=== PATIENT | female | born 1960 | race Caucasian/White ===

== ENCOUNTER 2016-06-12 14:17 | Inpatient (IN) | payer BC ==
[2016-06-12] MEDS ORDERED: ASPIRIN 81 MG CHEW PO STA (14:51)
[2016-06-12] MEDS ORDERED: MORPHINE SULFATE 4 MG/ML SYRINGE IV STA (14:51)
[2016-06-12] MEDS ORDERED: NITROGLYCERIN OINT 1 INCH/GM PACKET TOPICAL STA (14:51)
[2016-06-12] MEDS ORDERED: FAMOTIDINE 20 MG/2 ML VIAL IV STA (14:52)
[2016-06-12] MEDS ORDERED: SODIUM CHLORIDE 0.9% 1,000 ML IV STA (14:52)
--- NOTE | 2016-06-12 14:55 | ED ---
General Adult HPI - General Chief complaint: Chest Pain Stated complaint: Chest pain Time Seen by Provider: 06/12/16 14:24 Source: patient, RN notes reviewed Mode of arrival: wheelchair Limitations: no limitations - History of Present Illness Initial comments: Patient is a pleasant 56-year-old female presenting to the emergency Department with chest discomfort. Symptoms have been ongoing for the past couple of weeks. Patient is having difficulty tolerating oral intake. Discomfort is worse with attempted oral to take. Patient has vomited multiple times. Patient did have an episode of near-syncope. Patient also has some discomfort of her chest at other times. This discomfort is exertional. Patient has some mild dyspnea. No diaphoresis. Patient has some discomfort of her abdomen at times as well. Patient has had some loose stools as well. No abdominal discomfort at this time. Chest discomfort does radiate towards the back. - Related Data Home Medications Medication Instructions Recorded Confirmed Aspirin EC [Ecotrin] 81 mg PO DAILY 08/08/15 06/12/16 Carvedilol [Coreg] 12.5 mg PO HS 08/08/15 06/12/16 Cholecalciferol [Vitamin D3] 1,000 unit PO DAILY 08/08/15 06/12/16 Indapamide [Lozol] 1.25 mg PO DAILY 08/08/15 06/12/16 Valsartan [Diovan] 160 mg PO DAILY 08/08/15 06/12/16 Allergies Allergy/AdvReac Type Severity Reaction Status Date / Time Latex, Natural Rubber Allergy Rash/Hives Verified 06/12/16 14:35 codeine AdvReac Vomiting Verified 06/12/16 14:35 Review of Systems ROS Statement: Those systems with pertinent positive or pertinent negative responses have been documented in the HPI. ROS Other: All systems not noted in ROS Statement are negative. Constitutional: Denies: fever Eyes: Denies: eye pain ENT: Denies: ear pain Respiratory: Reports: dyspnea. Denies: cough Cardiovascular: Reports: chest pain Endocrine: Reports: fatigue Gastrointestinal: Reports: abdominal pain, nausea, vomiting, diarrhea Genitourinary: Denies: dysuria Musculoskeletal: Denies: back pain Skin: Denies: rash Neurological: Denies: headache Past Medical History Past Medical History: Cancer, Hypertension, Pneumonia Additional Past Medical History / Comment(s): Current UTI on medication, nonhodgkins lymphoma treated with chemo-she has "2 spots left lower lobe of my lung that have been unchanged for 3 yrs, pt states she does not have hyperlipidemia or high cholesterol, History of Any Multi-Drug Resistant Organisms: None Reported Additional Past Surgical History / Comment(s): Ablation for endometrosis, bilateral breast reduction, colonoscopies x 4 and a couple polypectomies-benign , D&Cs as a teen for heavy bleeding. Past Anesthesia/Blood Transfusion Reactions: Postoperative Nausea & Vomiting ( PONV) Additional Past Anesthesia/Blood Transfusion Reaction / Comment(s): Pt has received blood as a teen with heavy vaginal bleeding. She does not recall a reaction. Past Psychological History: Anxiety Additional Psychological History / Comment(s): Pt states her anxiety is well controlled with xanax. She lives alone. She is independent. Smoking Status: Current every day smoker Past Alcohol Use History: Daily Additional Past Alcohol Use History / Comment(s): Pt states she started smoking at age 15 (1975), she quit for 18 yrs and restarted 1 yr ago while going thru her divorce. She smokes 3/4 ppd. She states she drinks beer and more than 7 beers a week. Past Drug Use History: Marijuana Additional Drug Use History / Comment(s): Pt has medical marijuana card. She smokes 1 joint a day for pain and anxiety. - Past Family History Mother Family Medical History: AFIB, Fibromyalgia, Hyperlipidemia, Hypertension, Rheumatoid Arthritis (RA) Additional Family Medical History / Comment(s): Mother is 80 yrs old. Father Family Medical History: Myocardial Infarction (MD) Additional Family Medical History / Comment(s): Father of a MD at the age of 50yrs. General Exam Limitations: no limitations General appearance: alert, in no apparent distress Head exam: Present: atraumatic Eye exam: Present: normal appearance, PERRL ENT exam: Present: normal oropharynx Neck exam: Present: normal inspection Respiratory exam: Present: normal lung sounds bilaterally. Absent: chest wall tenderness Cardiovascular Exam: Present: regular rate, normal rhythm Expanded Peripheral pulses: 2+: Radial (R), Radial (L), Dorsalis Pedis (R), Dorsalis Pedis (L) GI/Abdominal exam: Present: soft, normal bowel sounds. Absent: distended, tenderness, guarding, rebound, rigid, pulsatile mass Extremities exam: Present: normal inspection. Absent: pedal edema, joint swelling, calf tenderness Neurological exam: Present: alert Psychiatric exam: Present: normal affect, normal mood Skin exam: Absent: rash Course Vital Signs 06/12/16 06/12/16 06/12/16 14:19 14:36 15:07 Temperature 97.3 F L Pulse Rate 117 H 88 Pulse Rate [ 97 [employer] ] Respiratory 22 22 22 Rate Blood Pressure 174/117 148/93 O2 Sat by Pulse 98 99 Oximetry EKG Findings - EKG Comments: EKG Findings:: Normal sinus rhythm and 99. NE 144. QRS 80. QT 346. QTc 444. Normal axis. Low qrs voltage. No acute ST change. Medical Decision Making - Medical Decision Making Patient reevaluated and resting in bed. Patient and family updated on results and plan. Dr. Boateng has been paged for admission. - Lab Data Result diagrams: 06/12/16 14:50 06/12/16 14:50 Lab Results 06/12/16 06/12/16 06/12/16 Range/Units 14:50 14:50 14:50 WBC 4.8 (3.8-10.6) k/uL RBC 3.86 (3.80-5.40) m/uL Hgb 14.4 (11.4-16.0) gm/dL Hct 40.0 (34.0-46.0) % MCV 103.5 H (80.0-100.0) fL MCH 37.3 H (25.0-35.0) pg MCHC 36.1 (31.0-37.0) g/dL RDW 13.2 (11.5-15.5) % Plt Count 123 L (150-450) k/uL Neutrophils % 71 % Lymphocytes % 16 % Monocytes % 5 % Eosinophils % 4 % Basophils % 1 % Neutrophils # 3.4 (1.3-7.7) k/uL Lymphocytes # 0.8 L (1.0-4.8) k/uL Monocytes # 0.3 (0-1.0) k/uL Eosinophils # 0.2 (0-0.7) k/uL Basophils # 0.1 (0-0.2) k/uL Macrocytosis Slight PT (9.0-12.0) sec INR (<1.1) APTT (22.0-30.0) sec D-Dimer (<0.60) mg/L FEU Sodium 125 L (137-145) mmol/L Potassium 3.6 (3.5-5.1) mmol/L Chloride 89 L (98-107) mmol/L Carbon Dioxide 22 (22-30) mmol/L Anion Gap 14 mmol/L BUN 4 L (7-17) mg/dL Creatinine 0.60 (0.52-1.04) mg/dL Est GFR (MDRD) Af Amer >60 (>60 ml/min/1.73 sqM) Est GFR (MDRD) Non-Af >60 (>60 ml/min/1.73 sqM) Glucose 148 H (74-99) mg/dL Calcium 8.9 (8.4-10.2) mg/dL Magnesium 1.3 L (1.6-2.3) mg/dL Total Bilirubin 3.3 H (0.2-1.3) mg/dL AST 211 H (14-36) U/L ALT 113 H (9-52) U/L Alkaline Phosphatase 127 H (38-126) U/L Total Creatine Kinase 64 (30-135) U/L CK-MB (CK-2) 0.6 (0.0-2.4) ng/mL CK-MB (CK-2) Rel Index 0.9 Troponin I <0.012 (0.000-0.034) ng/mL NT-Pro-B Natriuret Pep pg/mL Total Protein 6.5 (6.3-8.2) g/dL Albumin 4.0 (3.5-5.0) g/dL Amylase 39 (30-110) U/L Lipase 113 (23-300) U/L 06/12/16 06/12/16 Range/Units 14:50 14:50 WBC (3.8-10.6) k/uL RBC (3.80-5.40) m/uL Hgb (11.4-16.0) gm/dL Hct (34.0-46.0) % MCV (80.0-100.0) fL MCH (25.0-35.0) pg MCHC (31.0-37.0) g/dL RDW (11.5-15.5) % Plt Count (150-450) k/uL Neutrophils % % Lymphocytes % % Monocytes % % Eosinophils % % Basophils % % Neutrophils # (1.3-7.7) k/uL Lymphocytes # (1.0-4.8) k/uL Monocytes # (0-1.0) k/uL Eosinophils # (0-0.7) k/uL Basophils # (0-0.2) k/uL Macrocytosis PT 11.6 (9.0-12.0) sec INR 1.2 (<1.1) APTT 25.0 (22.0-30.0) sec D-Dimer 0.29 (<0.60) mg/L FEU Sodium (137-145) mmol/L Potassium (3.5-5.1) mmol/L Chloride (98-107) mmol/L Carbon Dioxide (22-30) mmol/L Anion Gap mmol/L BUN (7-17) mg/dL Creatinine (0.52-1.04) mg/dL Est GFR (MDRD) Af Amer (>60 ml/min/1.73 sqM) Est GFR (MDRD) Non-Af (>60 ml/min/1.73 sqM) Glucose (74-99) mg/dL Calcium (8.4-10.2) mg/dL Magnesium (1.6-2.3) mg/dL Total Bilirubin (0.2-1.3) mg/dL AST (14-36) U/L ALT (9-52) U/L Alkaline Phosphatase (38-126) U/L Total Creatine Kinase (30-135) U/L CK-MB (CK-2) (0.0-2.4) ng/mL CK-MB (CK-2) Rel Index Troponin I (0.000-0.034) ng/mL NT-Pro-B Natriuret Pep 49 pg/mL Total Protein (6.3-8.2) g/dL Albumin (3.5-5.0) g/dL Amylase (30-110) U/L Lipase (23-300) U/L - Radiology Data Radiology results: image reviewed (Two-view chest x-ray shows no acute process. 1 view abdominal x-ray shows some gassy loops of bowel.) Disposition Clinical Impression: Chest pain, Hyponatremia Disposition: ADMITTED IP TO THIS [facility] Time of Disposition: 16:16
[2016-06-12 15:01] LABS: Basophils # (A) 0.1 k/uL (0-0.2); Basophils % (A) 1 %; CH 37.9; CHCM 36.7; Eosinophils # (A) 0.2 k/uL (0-0.7); Eosinophils % (A) 4 %; HDW 2.29; HGB 14.4 gm/dL (11.4-16.0); Luc # (Auto) 0.12; Luc % (Auto) 3; Lymphocytes # (A) 0.8 k/uL (1.0-4.8); Lymphocytes % (A) 16 %; MCH 37.3 pg (25.0-35.0); MCHC 36.1 g/dL (31.0-37.0); MCV 103.5 fL (80.0-100.0); Macrocytosis Slight; Mean Platelet Volume 6.9; Monocytes # (A) 0.3 k/uL (0-1.0); Monocytes % (A) 5 %; Neutrophils # (A) 3.4 k/uL (1.3-7.7); Neutrophils % (A) 71 %; RBC 3.86 m/uL (3.80-5.40); RDW 13.2 % (11.5-15.5); WBC 4.8 k/uL (3.8-10.6); WBC (Perox) 4.41
[2016-06-12 15:14] LABS: ALT 113 U/L (9-52); AST 211 U/L (14-36); Alkaline Phosphatase 127 U/L (38-126); Amylase 39 U/L (30-110); Anion Gap 14 mmol/L; Blood Urea Nitrogen 4 mg/dL (7-17); Calcium 8.9 mg/dL (8.4-10.2); Carbon Dioxide 22 mmol/L (22-30); Chloride 89 mmol/L (98-107); Glucose 148 mg/dL (74-99); Magnesium 1.3 mg/dL (1.6-2.3); Non-African American GFR(MDRD) >60 (>60 ml/min/1.73 sqM); Potassium 3.6 mmol/L (3.5-5.1); Sodium 125 mmol/L (137-145); Total Bilirubin 3.3 mg/dL (0.2-1.3); Total Protein 6.5 g/dL (6.3-8.2)
[2016-06-12 15:21] LABS: Creatine Kinase 64 U/L (30-135)
--- NOTE | 2016-06-12 15:30 | XR ---
EXAMINATION TYPE: XR chest 2V DATE OF EXAM: 06/12/2016 3:24 PM COMPARISON: 08/08/2015 HISTORY: Chest pain TECHNIQUE: Frontal and lateral views of the chest are obtained. FINDINGS: There is no focal air space opacity. No evidence for pnuemothorax.No pleural effusion. The cardiac silhouette size is within normal limits. The osseous structures are grossly intact. IMPRESSION: 1. No acute cardiopulmonary process.
[2016-06-12 15:34] LABS: INR 1.2 (<1.1); Prothrombin Time 11.6 sec (9.0-12.0)
[2016-06-12 15:35] LABS: Creatine Kinase MB 0.6 ng/mL (0.0-2.4); Troponin I <0.012 ng/mL (0.000-0.034)
--- NOTE | 2016-06-12 15:35 | XR ---
EXAMINATION TYPE: XR abdomen 1V DATE OF EXAM: 06/12/2016 3:24 PM CLINICAL DATA: 56-year-old female with pain, nausea, vomiting and bloating, PHH COMPARISON: None FINDINGS: Lung bases are clear. No evidence for free intraperitoneal air. Gassy colon is noted without significant stool burden or air-fluid levels. No suspicious calcifications identified. IMPRESSION: Gassy bowel loops and colon. No significant stool burden. No evidence of bowel obstruction or free in traperitoneal air.
[2016-06-12] MEDS ORDERED: MORPHINE SULFATE 4 MG/ML SYRINGE IV PRN (16:17)
[2016-06-12] MEDS ORDERED: NALOXONE 0.4 MG/ML 1 ML VIAL IV PRN (16:17)
[2016-06-12] MEDS ORDERED: ONDANSETRON 4 MG/2 ML VIAL IVP PRN (16:18)
--- NOTE | 2016-06-12 17:09 | US ---
EXAMINATION TYPE: US gallbladder DATE OF EXAM: 06/12/2016 4:41 PM COMPARISON: NONE CLINICAL HISTORY: Pain. Intermittent chest pain and N/V x 2 weeks, obese patient EXAM MEASUREMENTS: Liver Length: 16.2 cm Gallbladder Wall: 0.2 cm CBD: 0.8 cm Right Kidney: 10.5 x 5.3 x 4.9 cm Technically difficult and limited study due to patient body habitus Pancreas: visualized portions wnl, limited by overlying midline bowel gas Liver: heterogeneous, increased echogenicity, increase attenuation Gallbladder: appears slightly hydropic at 10.0cm in length and 4.6cm in transverse measurement Evidence for sonographic Barth's sign: no CBD: dilated at 0.8cm Right Kidney: wnl IMPRESSION: 1. Negative for cholelithiasis or cholecystitis, although the gallbladder is distended. 2. Common duct caliber is mildly dilated for patient age, for significance request correlation for el evated bilirubin and alkaline phosphatase levels.
[2016-06-12] MEDS: SODIUM CHLORIDE 0.9% 1,000 ML IV SCH (18:13)
[2016-06-12] MEDS ORDERED: RX INFO: IV CONTRAST WAS GIVEN 1 EACH MISC MISCELLANE PRN (20:25)
[2016-06-12] MEDS ORDERED: HYDROmorphone 1 MG/ML 1 ML SYRINGE IVP PRN (20:26)
[2016-06-12] MEDS ORDERED: CARVEDILOL 12.5 MG TAB PO SCH (21:00)
[2016-06-12] MEDS: ALPRAZolam 0.25 MG TAB PO SCH (21:12)
[2016-06-12 21:16] LABS: Creatine Kinase 60 U/L (30-135)
[2016-06-12 21:28] LABS: Creatine Kinase MB 0.6 ng/mL (0.0-2.4); Troponin I <0.012 ng/mL (0.000-0.034)
[2016-06-12 21:39] LABS: Hepatitis B Core IgM Index 0.06
[2016-06-12 21:51] LABS: Hepatitis C Virus IgG Ab Negative (Negative); Hepatitis C Virus IgG Index 0.01
--- NOTE | 2016-06-12 22:19 | CT ---
EXAMINATION TYPE: CT ABDOMEN W CON DATE OF EXAM: 06/12/2016 9:08 PM COMPARISON: Ultrasound earlier this evening. HISTORY: Patient complains of nausea and vomiting. Patient has elevated LFTs. CT DLP: 989.6 mGycm Automated exposure control for dose reduction was used. TECHNIQUE: Helical acquisition of images was performed from the lung bases through the top of iliac crest to include entire abdomen. CONTRAST: Performed without Oral Contrast and with IV Contrast, patient injected with 100 mL of Omnip aque 300. FINDINGS: LUNG BASES: No significant abnormality is appreciated. LIVER/GB: There is diffuse homogeneous low-attenuation throughout the liver parenchyma consistent wit h diffuse fatty infiltration of the liver. There is no evidence of cholelithiasis. No visualized chol edocholithiasis. The gallbladder is mildly distended. There is no intrahepatic biliary tree dilation, but the common duct caliber measures 7 mm, mildly dilated. The distal common bile duct does not appe ar to be dilated as it courses through the pancreatic parenchyma. PANCREAS: No significant abnormality is seen. SPLEEN: No significant abnormality is seen. ADRENALS: No significant abnormality is seen. KIDNEYS: No significant abnormality is seen. BOWEL: No significant abnormality is seen. LYMPH NODES: No significant abnormality is seen. OSSEOUS STRUCTURES: No significant abnormality is seen. FREE AIR: No free air is visualized. OTHER: Prominent pattern of atherosclerotic calcifications throughout the aortoiliac and renal arteri al anatomy, without aneurysmal dilation. IMPRESSION: 1. NEGATIVE FOR CHOLECYSTITIS, VISUALIZED CHOLELITHIASIS, OR VISUALIZED CHOLEDOCHOLITHIASIS. HOWEVER, REDEMONSTRATED MILDLY DILATION OF THE GALLBLADDER AND COMMON BILE DUCT. 2. DIFFUSE FATTY INFILTRATION OF THE LIVER. 3. PROMINENT ATHEROSCLEROTIC CALCIFICATIONS THROUGHOUT THE ARTERIAL ANATOMY.
[2016-06-12 23:16] VITALS: RESP 16
[2016-06-12] MEDS ORDERED: LORazepam 2 MG/ML SYRINGE IV PRN ×3 (23:19)
[2016-06-13] MEDS ORDERED: Magnesium Replacement Protocol 1 EACH MISC MISCELLANE PRN (01:03)
[2016-06-13] MEDS: MAGNESIUM SULFATE-D5W PMX 1 GM in DEXTROSE/WATER 1 100ML.BAG IVPB SCH ×3 (01:42→03:48)
[2016-06-13] MEDS: SODIUM CHLORIDE 0.9% 1,000 ML IV SCH ×2 (01:42→11:36)
[2016-06-13 05:02] LABS: Creatine Kinase 47 U/L (30-135)
[2016-06-13 05:16] LABS: Creatine Kinase MB 0.7 ng/mL (0.0-2.4); Troponin I <0.012 ng/mL (0.000-0.034)
--- NOTE | 2016-06-13 07:12 | HP ---
DATE OF ADMISSION: CHIEF COMPLAINT: Chest pain. HISTORY OF PRESENT ILLNESS: This is the first known admission for this 56-year-old white female. She has been having a lot of trouble with epigastric discomfort and then, nausea and vomiting. She describes a chest pain that has been going on for about 2 weeks, but sounds more gastrointestinal than cardiac. She had no hematemesis, melena, hematochezia, fever, chills, etc. She also has elevated liver function studies, but she drinks a fair amount of alcohol. She has never had hepatitis. In the emergency room her sodium was slightly low as well. She does have a family history of heart disease. REVIEW OF SYSTEMS: She has had no neurologic problems, TIA, cerebrovascular accident, ( ), etc. ( ) She has had no history of coronary artery disease, murmurs, rheumatic fever, etc. She has had no orthopnea, PND, and she has had no palpitations. She has had no renal disease, melena, hematochezia, jaundice, diabetes, etc. Past medical history, family history, personal and social histories are otherwise essentially unremarkable. She is PROBABLY ALLERGIC TO MORPHINE as she got some in the ER and she has developed nausea and vomiting. Surgically, she has had a procedure for endometriosis. She has been treated in the past for a non-Hodgkin's lymphoma, B-cell. She also recently had a breast reduction. The only medication she takes is for hypertension. She has a family history of heart disease. She smokes a pack cigarettes a day. PHYSICAL EXAMINATION: VITAL SIGNS: Blood pressure is 139/90 with a pulse of 88, respirations 35 and she is afebrile. GENERAL: She appeared to be slightly overweight and nauseated. She was vomiting. Skin color is normal. Skin is warm and dry. Lymph nodes are not enlarged. Head, ears, eyes, nose, mouth, and throat were normal. Neck veins not distended. Thyroid is not enlarged. Chest is clear. Cardiac exam demonstrated tachycardia. The abdomen was protuberant and ( ) epigastrium. There is no visceromegaly or masses. Bowel sounds present. Extremities are normal. Neurologically, she is intact. IMPRESSION: 1. Chest pain. 2. Epigastric pain. 3. Questionable gastroesophageal reflux disease. 4. Elevated liver function studies - question cirrhosis. 5. Status post non-Hodgkin's lymphoma. 6. Alcohol abuse. 7. Hypertension. PLAN: 1. Bed rest. 2. Antiemetics. 3. Cardiac enzymes. 4. GI work-up for esophagitis or ulcer disease. 5. Assess liver function.
[2016-06-13] MEDS: ALPRAZolam 0.25 MG TAB PO SCH ×2 (08:52→14:51)
[2016-06-13 08:53] LABS: Anion Gap 9 mmol/L; Blood Urea Nitrogen 5 mg/dL (7-17); Calcium 8.6 mg/dL (8.4-10.2); Carbon Dioxide 23 mmol/L (22-30); Chloride 96 mmol/L (98-107); Glucose 164 mg/dL (74-99); Non-African American GFR(MDRD) >60 (>60 ml/min/1.73 sqM); Sodium 128 mmol/L (137-145)
[2016-06-13 08:59] LABS: Potassium 3.6 mmol/L (3.5-5.1)
[2016-06-13] MEDS ORDERED: PANTOPRAZOLE 40 MG/10 ML VIAL IV SCH (09:00)
[2016-06-13] MEDS ORDERED: VALSARTAN 160 MG TAB PO SCH (09:00)
[2016-06-13] MEDS ORDERED: ASPIRIN 81 MG CHEW PO SCH (09:00)
[2016-06-13] MEDS ORDERED: CHOLECALCIFEROL 1,000 UNIT TAB PO SCH (09:00)
--- NOTE | 2016-06-13 09:14 | CDI ---
In responding to this query, please exercise your independent professional judgment. The [facility] Coding Staff and Clinical Documentation Specialists appreciate your assistance in clarifying documentation, maintaining compliance with coding guidelines, accurately documenting patients condition and capturing severity of illness. The fact that a question is asked does not imply that any particular answer is desired or expected. Communication forms are a method of clarifying documentation and are not made part of the Legal Health Record. Thank you in advance for your clarification. Last Revision, December 2014 Leodan Mendoza [address] [facility] [place] [address] Documentation Clarification Form Date: 06/13/2016 9:05:00 AM From: Kristi Kim RN, CDS Admit Date: 06/12/2016 4:17:00 PM Patient Name: Mulu Viramontes Visit Number: [id number] Dr. Carlos Boateng, The patient presents with complaints of Chest discomfort and abdominal discomfort. History of Non-Hodgkins Lymphoma, Alcohol and documented sodium level of: 125. "her sodium is slightly low" per H&P Clinical indicators: NA 125 in ED Treatment: NS @ 100 In order to capture the severity of condition, please clarify if the condition signifies: Hyponatremia Abnormal Lab Value Unable to determine Other condition, please specify Please document in your progress notes and discharge summary in order to capture severity of illness and risk of mortality. Include clinical findings that support your diagnosis. FYI: Press F11 to launch patient chart. Place X here if this finding has no clinical significance, is not applicable or if you are not able to provide any additional documentation. RADHA
[2016-06-13] MEDS ORDERED: ACETAMINOPHEN TAB 325 MG TAB PO STA (10:25)
[2016-06-13 10:43] VITALS: BMI 33.1
--- NOTE | 2016-06-13 10:48 | P.CONS ---
History of Present Illness - Reason for Consult Consult date: 06/13/16 Elevated liver enzymes Requesting physician: Carlos Boateng - History of Present Illness 56-year-old female with no PCP with a past medical history of anxiety, depression, marijuana, non-Hodgkin's lymphoma, and EtOH abuse. Patient presents with mid sternal/midepigastric discomfort burning intermittently over the last few weeks exacerbated yesterday with nonbloody emesis and nausea. Patient has been drinking alcohol very heavily over the last few weeks with wine , beer, and vodka. She has been stressed, anxious going through divorce. Last drink of alcohol was prior to admission. She has drank intermittenty over the last 20 years sometimes on a daily basis sometimes not. She describes her drinking as " not a problem". She was taken off her Xanax recently in decided to drink more to compensate for her anxiety. Denies fever, chills, hematemesis , hematochezia, or melena. Colonoscopies in the past with polypectomy. No history of GI bleeding. No history of known liver disorders, intravenous drug abuse, or hepatitis. No history of jaundice. Hepatitis panel negative. Total bilirubin 3.3 currently 3.0. AST 139-211. ALT 97-113. Alkaline phosphatase 106-127. Troponin 3 less than 0.012. Lipase 113. White count 4.8. Hemoglobin 14.4. MCV 103. Platelet 123. BUN 4. Creatinine 0.6. Ultrasound gallbladder negative for cholelithiasis or cholecystitis. CBD 0.8 cm. Gallbladder slightly hydropic at 10 cm x 4.6 cm. Review of Systems Constitutional: Denies fever, chills, sweats, weight gain, or loss. HEENT: Negative for migraines, blurred vision or loss, earaches, drainage, tinnitus, oral mucosal lesions, dysphagia, or odynophagia. CARDIAC: Hypertension. Negative for chest pain, arrhythmias, or palpitation. RESPIRATORY: Negative for shortness of breath, hemoptysis, cough, or sputum production. GI: See HPI for pertinent findings. : Negative for hematuria, urgency, frequency, polyuria, or dysuria. GYNc: Endometriosis. Negative vaginal discharge. MUSCULOSKELETAL: Negative for muscle aches, swelling, arthritis, and arthralgias. NEUROLOGIC: Negative for stroke or TIA. ENDOCRINE: Negative for thyroid problems. Hematologic: Non-Hodgkin's lymphoma. SKIN: Negative for rash or itching. PSYCHIATRIC: depression and anxiety All systems: negative (See HPI) Past Medical History Past Medical History: Cancer, Hypertension, Pneumonia Additional Past Medical History / Comment(s): Current UTI on medication, nonhodgkins lymphoma treated with chemo-she has "2 spots left lower lobe of my lung that have been unchanged for 3 yrs, pt states she does not have hyperlipidemia or high cholesterol, History of Any Multi-Drug Resistant Organisms: None Reported Additional Past Surgical History / Comment(s): Ablation for endometrosis, bilateral breast reduction, colonoscopies x 4 and a couple polypectomies-benign , D&Cs as a teen for heavy bleeding. Past Anesthesia/Blood Transfusion Reactions: Postoperative Nausea & Vomiting ( PONV) Additional Past Anesthesia/Blood Transfusion Reaction / Comm: Pt has received blood as a teen with heavy vaginal bleeding. She does not recall a reaction. Past Psychological History: Anxiety, Depression Additional Psychological History / Comment(s): Pt states her anxiety is well controlled with xanax. She lives alone. She is independent. Patient states she has been stressed out related to possible divorce with . Smoking Status: Current every day smoker Past Alcohol Use History: Daily Additional Past Alcohol Use History / Comment(s): Pt states she started smoking at age 15 (1975), she quit for 18 yrs and restarted 1 yr ago while going thru her divorce. She smokes 3/4 ppd. She states she drinks beer and more than 7 beers a week. Past Drug Use History: Marijuana Additional Drug Use History / Comment(s): Pt has medical marijuana card. She smokes 1 joint a day for pain and anxiety. - Past Family History Mother Family Medical History: AFIB, Fibromyalgia, Hyperlipidemia, Hypertension, Rheumatoid Arthritis (RA) Additional Family Medical History / Comment(s): Mother is 80 yrs old. Father Family Medical History: Myocardial Infarction (ND) Additional Family Medical History / Comment(s): Father of a ND at the age of 50yrs. Medications and Allergies Home Medications Medication Instructions Recorded Confirmed Type Aspirin EC [Ecotrin Low Dose] 81 mg PO DAILY 08/08/15 06/12/16 History Carvedilol [Coreg] 12.5 mg PO HS 08/08/15 06/12/16 History Cholecalciferol [Vitamin D3] 1,000 unit PO DAILY 08/08/15 06/12/16 History Indapamide [Lozol] 1.25 mg PO DAILY 08/08/15 06/12/16 History Valsartan [Diovan] 160 mg PO DAILY 08/08/15 06/12/16 History ALPRAZolam [Xanax] 0.25 mg PO TID 06/12/16 06/12/16 History Allergies Allergy/AdvReac Type Severity Reaction Status Date / Time Latex, Natural Rubber Allergy Rash/Hives Verified 06/12/16 14:35 codeine AdvReac Vomiting Verified 06/12/16 14:35 Physical Exam Vitals: Vital Signs Temp Pulse Pulse Pulse Resp BP BP 06/13/16 08:15 06/13/16 08:00 98.2 F 90 96 16 124/70 06/13/16 03:59 97 F L 96 16 128/81 06/12/16 23:16 97 F L 99 16 131/88 06/12/16 20:00 97 F L 89 16 153/83 06/12/16 18:09 97.6 F 92 18 166/90 06/12/16 16:50 97.9 F 90 18 141/79 Pulse Ox 06/13/16 08:15 98 06/13/16 08:00 98 06/13/16 03:59 100 06/12/16 23:16 94 L 06/12/16 20:00 97 06/12/16 18:09 97 06/12/16 16:50 95 Intake and Output 06/12/16 06/13/16 06/13/16 22:59 06:59 14:59 Intake Total 300 1100 400 Balance 300 1100 400 Intake: IV 300 1100 Magnesium Sulfate-D5w Pmx 300 1 gm In Dextrose/Water 1 100ml.bag @ 100 mls/hr IVPB Q1H SUHAS Rx#: [id number] Sodium Chloride 0.9% 1, 300 800 000 ml @ 100 mls/hr IV . Q10H [facility]HAS Rx#:[id number] Oral 400 Other: Voiding Method Toilet Toilet Weight 79.6 kg 79.6 kg Patient Weight 06/14/16 06:59 Weight 79.6 kg General appearance: The patient is alert, oriented, in no acute distress. HET: Head is normocephalic and atraumatic. Pupils are equal and reactive. Oropharynx is clear without lesions. Very fine spider telangiectasia on face. Neck: Supple without lymphadenopathy. Trachea midline. Heart: S1 S2. Regular rate and rhythm. Lungs: No crackles or wheezes are heard. Abdomen: Soft, nontender, nondistended with bowel sounds. No appreciable ascites. No peritoneal signs. No palpable organomegaly or masses. Extremities: Bilateral palmar erythema. No asterixis. Normal skin color and turgor. No cyanosis, rash, ulceration, clubbing, or edema. Radial and pedal pulses are 2/4 bilaterally. Neurological: No focal deficits. Strength and sensation are grossly intact. Results CBC & Chem 7: 06/12/16 14:50 06/13/16 03:38 Labs: Abnormal Lab Results - Last 24 Hours (Table) 06/13/16 06/13/16 Range/Units 03:38 03:38 Sodium 128 L (137-145) mmol/L Chloride 96 L (98-107) mmol/L BUN 5 L (7-17) mg/dL Glucose 164 H (74-99) mg/dL Magnesium 2.4 H (1.6-2.3) mg/dL US - abdomen: report reviewed (Reviewed by Dr. Encarnacion) Assessment and Plan (1) Alcoholic hepatitis Narrative/Plan: Suspected underlying alcohol liver disease. Suspect chest discomfort secondary to alcohol gastritis, esophagitis. Status: Acute (2) Macrocytosis Status: Acute (3) Thrombocytopenia concurrent with and due to alcoholism Status: Acute Plan: 1. Lengthy conversation for alcohol abstinence was advised. 2. Presently patient is more comfortable without abdominal pain nausea vomiting. Will advance to regular diet. Discharge per medicine. Return to GI office in 1-2 weeks for reevaluation with repeat CMP within a week. Thank you for this kind referral and the opportunity to participate in the care of your patient. This consultation was discussed with Dr. Encarnacion. The impression and plan of care have been directed as dictated.
[2016-06-13 10:55] LABS: ALT 97 U/L (9-52); AST 139 U/L (14-36); Alkaline Phosphatase 106 U/L (38-126); Total Protein 6.1 g/dL (6.3-8.2)
[2016-06-13 12:10] VITALS: BP 101/59
--- NOTE | 2016-06-13 12:18 | P.DS ---
Providers Date of admission: 06/12/16 16:17 Expected date of discharge: 06/13/16 Attending physician: Carlos Boateng Consults: 06/12/16 20:26 Consult Physician Routine Consulting Provider: Leola Encarnacion Consult Reason/Comments: n/v, elevated liver enzymes Do you want consulting provider notified?: Yes Primary care physician: Stated None Hospital Course: 56-year-old female presented to the emergency room with a chief complaint of developing chest discomfort. Patient stated had been ongoing for several weeks. Patient does admit to drinking alcohol on a daily basis. States she's been under a lot of stress and has been " stressed drinking "" with daily consumption of hard liquor. Patient states she is normally an anxious individual in the past has used Xanax to control her anxiety ran out of the Xanax could not get a refill stated that she noted that she started drinking more heavily. Subsequently the patient was seen by gastroenterology service. Cardiac enzymes were negative. On admission there was an abnormal lab value the sodium was low at 125 with platelet count of 123 kalie also was 1.3 in which this was corrected total bilirubin elevated at 3.3 AST and ALT on admission were elevated suspect alcohol related on the day of discharge the AST was down to 139 ALT found 97 plan was the patient would follow-up in the outpatient setting with gastroenterology service. At the time of discharge patient was felt to be medically stable and appropriate proceed with a discharge to home. Patient did verbalize that she has stopped drinking alcohol the past and understands the severity and the need to address her alcohol issues she feels she has no issues stopping drinking alcohol. The plan was for the patient to follow-up with GI service in the outpatient setting Impression discharge diagnosis Present on admission atypical chest discomfort abdominal discomfort suspect due to chronic alcoholism Present on admission abnormal lab value hyponatremia suspect alcohol-induced History of non-Hodgkin lymphoma Anxiety disorder nonspecified Elevated liver function studies suspect alcohol related Present on admission abnormal lab value hypo-magnesium thrombocytopenia suspect alcohol-related The above dictated assessment and findings were discussed with Dr. Boateng Impression and the plan of care have been dictated as directed. Yolande Finley nurse practitioner acting as a scribe for Dr. Boateng Plan - Discharge Summary Discharge Medication List Aspirin EC [Ecotrin Low Dose] 81 mg PO DAILY 08/08/15 [History] Carvedilol [Coreg] 12.5 mg PO HS 08/08/15 [History] Cholecalciferol [Vitamin D3] 1,000 unit PO DAILY 08/08/15 [History] Indapamide [Lozol] 1.25 mg PO DAILY 08/08/15 [History] Valsartan [Diovan] 160 mg PO DAILY 08/08/15 [History] ALPRAZolam [Xanax] 0.25 mg PO TID 06/12/16 [History] Follow up Appointment(s)/Referral(s): Ulisses Pastor MD [Primary Care Provider] - 06/17/16 2:00 pm (PLEASE ARRIVE AT 1: 30 TO MEET WITH NURSE PRACTIONER AND TO FILL OUT PAPERWORK.) Leoal Encarnacion MD [STAFF PHYSICIAN] - 06/21/16 2:45 pm Ambulatory/Diagnostic Orders: Comprehensive Metabolic Panel [LAB.AMB] Time Frame: 1 Week, Location: Determined By Patient Discharge Disposition: HOME SELF-CARE
[2016-06-13 15:15] VITALS: PULSE 88; TEMP 98.6
--- NOTE | 2016-06-14 06:58 | PN ---
CHIEF COMPLAINT: Chest pain, history of lymphoma, alcohol abuse and probable gastritis and esophagitis. HISTORY OF PRESENT ILLNESS: This lady is feeling much better. She is not having any further chest or abdominal pain. Her diet and activity were advanced. Troponins were normal. She will probably go home today. PHYSICAL EXAM: Chest is clear. Cardiac exam is normal. Abdomen is soft and nontender. IMPRESSION: 1. Chest pain, atypical for angina. 2. Alcohol abuse. 3. Gastritis. 4. History of lymphoma. PLAN: Probably home today and this will be arranged by the nurse practitioner.
== END 2016-06-13 15:54 | disposition home or self-care (01) | DRG 392 ==
LOC: EC 14:17 → 6SEL 16:17
PROVIDERS: ADMIT Family Medicine; ATTEND Family Medicine
DX: K29.20 Alcoholic gastritis without bleeding (principal); E87.1 Hypo-osmolality and hyponatremia; D69.6 Thrombocytopenia, unspecified; E83.42 Hypomagnesemia; K70.10 Alcoholic hepatitis without ascites; K20.9 Esophagitis, unspecified; F10.20 Alcohol dependence, uncomplicated; I10 Essential (primary) hypertension; F32.9 Major depressive disorder, single episode, unspecified; F17.210 Nicotine dependence, cigarettes, uncomplicated; F41.9 Anxiety disorder, unspecified; D75.89 Other specified diseases of blood and blood-forming organs; Z85.72 Personal history of non-Hodgkin lymphomas; Z79.82 Long term (current) use of aspirin; Z79.899 Other long term (current) drug therapy; Z82.49 Family history of ischemic heart disease and other diseases of the circulatory system
CPT/HCPCS: 36415; 71020; 74000; 74160; 76705; 80053; 80074; 82150; 82550; 82553; 82977; 83690; 83735; 83880; 84484; 85025; 85379; 85610; 85730; 93005; 96361; 96374; 96375; 96376; 99285

== ENCOUNTER 2017-04-29 01:37 | Inpatient (IN) | payer BC ==
[2017-04-29] MEDS ORDERED: ONDANSETRON 4 MG/2 ML VIAL IVP STA (01:56)
--- NOTE | 2017-04-29 02:01 | ED ---
General Adult HPI - General Chief complaint: Chest Pain Stated complaint: chest pain Time Seen by Provider: 04/29/17 01:47 Source: patient, RN notes reviewed, old records reviewed Mode of arrival: wheelchair Limitations: no limitations - History of Present Illness Initial comments: 57-year-old female presents for evaluation of chest pain. Patient states she has had chest pain for the past 3 hours. She also reports that this is associated with dyspnea. Patient admits that earlier in the day she has had nausea and vomiting. Several episodes of vomiting nonbloody nonbilious. Pain began while at rest. No associated diaphoresis. Patient has no known history of coronary artery disease, she is a current smoker, and has a strong family history of coronary artery disease including father who in his 50s from a myocardial infarction. Patient states she was previously admitted to [facility] with abdominal cellulitis, at that time she did have some bilateral lower extremity swelling which is resolving. She denies any current swelling or calf tenderness. No current abdominal pain. Patient does state that her chest pain is described as tightness or pressure, she also has some bilateral upper back pain which she also describes it as a pressure. Patient denies fever or chills, no significant cough. - Related Data Home Medications Medication Instructions Recorded Confirmed Aspirin EC [Ecotrin Low Dose] 81 mg PO DAILY 08/08/15 04/29/17 Carvedilol [Coreg] 12.5 mg PO BID 08/08/15 04/29/17 Cholecalciferol [Vitamin D3] 1,000 unit PO DAILY 08/08/15 04/29/17 Indapamide [Lozol] 1.25 mg PO DAILY 08/08/15 04/29/17 Valsartan [Diovan] 160 mg PO DAILY 08/08/15 04/29/17 ALPRAZolam [Xanax] 0.25 mg PO TID 06/12/16 04/29/17 Carvedilol [Coreg] 12.5 mg PO DAILY 04/29/17 04/29/17 Clotrimazole/Betameth Cream 1 applic TOPICAL BID 04/29/17 04/29/17 [Lotrisone] Doxycycline Hyclate 100 mg PO BID 04/29/17 04/29/17 Furosemide [Lasix] 20 mg PO BID 03/20/18 03/20/18 Multivitamins, Thera [Multivitamin 1 tab PO DAILY 04/29/17 04/29/17 (formulary)] Pantoprazole Sodium 40 mg PO DAILY 04/29/17 04/29/17 Spironolactone 50 mg PO DAILY 04/29/17 04/29/17 Thiamine [Vitamin B-1] 100 mg PO DAILY 04/29/17 04/29/17 Allergies Allergy/AdvReac Type Severity Reaction Status Date / Time Latex, Natural Rubber Allergy Rash/Hives Verified 06/12/16 14:35 codeine AdvReac Vomiting Verified 06/12/16 14:35 Review of Systems ROS Statement: Those systems with pertinent positive or pertinent negative responses have been documented in the HPI. ROS Other: All systems not noted in ROS Statement are negative. Past Medical History Past Medical History: Cancer, Hypertension, Pneumonia Additional Past Medical History / Comment(s): UTI , nonhodgkins lymphoma treated with chemo-she has "2 spots left lower lobe of my lung that have been unchanged for 3 yrs, pt states she does not have hyperlipidemia or high cholesterol, History of Any Multi-Drug Resistant Organisms: None Reported Additional Past Surgical History / Comment(s): Ablation for endometrosis, bilateral breast reduction, colonoscopies x 4 and a couple polypectomies-benign , D&Cs as a teen for heavy bleeding. Past Anesthesia/Blood Transfusion Reactions: Postoperative Nausea & Vomiting ( PONV) Additional Past Anesthesia/Blood Transfusion Reaction / Comment(s): Pt has received blood as a teen with heavy vaginal bleeding. She does not recall a reaction. Past Psychological History: Anxiety, Depression Smoking Status: Current every day smoker Past Alcohol Use History: Daily Past Drug Use History: Marijuana - Past Family History Mother Family Medical History: AFIB, Fibromyalgia, Hyperlipidemia, Hypertension, Rheumatoid Arthritis ([place]) Additional Family Medical History / Comment(s): Mother is 80 yrs old. Father Family Medical History: Myocardial Infarction ([place]) Additional Family Medical History / Comment(s): Father of a [place] at the age of 50yrs. General Exam Limitations: no limitations General appearance: alert, in no apparent distress Head exam: Present: atraumatic, normocephalic Eye exam: Present: normal appearance, PERRL, EOMI ENT exam: Present: normal exam Neck exam: Present: normal inspection. Absent: tenderness, meningismus Respiratory exam: Present: decreased breath sounds. Absent: respiratory distress Cardiovascular Exam: Present: normal rhythm, tachycardia GI/Abdominal exam: Present: soft, distended. Absent: tenderness, guarding, rebound Extremities exam: Present: normal inspection, normal capillary refill, other ( Bilateral radial pulses symmetric). Absent: pedal edema, calf tenderness Back exam: Present: normal inspection, full ROM. Absent: tenderness Neurological exam: Present: alert, oriented X3, CN II-XII intact. Absent: motor sensory deficit Psychiatric exam: Present: normal affect, normal mood Skin exam: Present: warm, dry, intact, normal color. Absent: cyanosis, diaphoretic, erythema Course Vital Signs 04/29/17 04/29/17 04/29/17 01:40 02:24 03:01 Temperature 99.5 F Pulse Rate 109 H 109 H 100 Respiratory 22 20 18 Rate Blood Pressure 179/96 172/85 156/76 O2 Sat by Pulse 90 L 94 L 95 Oximetry 04/29/17 03:56 Temperature 100.6 F H Pulse Rate 107 H Respiratory 18 Rate Blood Pressure 160/78 O2 Sat by Pulse 98 Oximetry EKG Findings - EKG Comments: EKG Findings:: EKG obtained at 0148 shows sinus tachycardia with occasional PVCs , low voltage, ventricular rate 108, MO interval 146, QRS duration 72, QTC 466, no definitive signs of ischemia. EKG obtained at 0 217 shows sinus tachycardia , rate of 111, MO interval 144, QRS duration 66 QTC 475, no ST segment elevation , Medical Decision Making - Medical Decision Making 57-year-old female presenting with dyspnea and chest pain. No history of cough , patient is febrile in the emergency partner, she is currently on antibiotics for abdominal cellulitis, currently taking doxycycline. Chest pain is both in anterior chest as well as back. EKG is sinus tachycardia with no definitive signs of ischemia. Laboratory studies reveal elevated white blood cell count, stable hemoglobin, negative troponin, significantly elevated d-dimer. Given the elevated d-dimer and chest pain with back pain, CT angiography is obtained which is negative for both dissection and pulmonary embolism, there is infiltrate on the chest x-ray and CT longus in the left lower lobe. CT abdomen is obtained which is negative for aortic dissection, does show mild ascites. Patient was recently hospitalized, she is started on antibiotics for healthcare associated pneumonia, blood cultures pending. Diagnosis: Healthcare associated pneumonia, chest pain - Lab Data Result diagrams: 04/29/17 01:47 04/29/17 01:47 Lab Results 04/29/17 04/29/17 04/29/17 Range/Units 01:47 01:47 01:47 WBC 14.5 H (3.8-10.6) k/uL RBC 3.83 (3.80-5.40) m/uL Hgb 14.2 (11.4-16.0) gm/dL Hct 40.8 (34.0-46.0) % MCV 106.5 H (80.0-100.0) fL MCH 37.0 H (25.0-35.0) pg MCHC 34.8 (31.0-37.0) g/dL RDW 13.1 (11.5-15.5) % Plt Count 265 (150-450) k/uL Neutrophils % 83 % Lymphocytes % 7 % Monocytes % 4 % Eosinophils % 4 % Basophils % 1 % Neutrophils # 12.0 H (1.3-7.7) k/uL Lymphocytes # 1.0 (1.0-4.8) k/uL Monocytes # 0.5 (0-1.0) k/uL Eosinophils # 0.6 (0-0.7) k/uL Basophils # 0.1 (0-0.2) k/uL Macrocytosis Moderate PT (9.0-12.0) sec INR (<1.2) APTT (22.0-30.0) sec D-Dimer (<0.60) mg/L FEU Sodium 139 (137-145) mmol/L Potassium 3.8 (3.5-5.1) mmol/L Chloride 100 (98-107) mmol/L Carbon Dioxide 25 (22-30) mmol/L Anion Gap 14 mmol/L BUN 3 L (7-17) mg/dL Creatinine 0.50 L (0.52-1.04) mg/dL Est GFR (CKD-EPI)AfAm >90 (>60 ml/min/1.73 sqM) Est GFR (CKD-EPI)NonAf >90 (>60 ml/min/1.73 sqM) Glucose 151 H (74-99) mg/dL Plasma Lactic Acid Giovanni (0.7-2.0) mmol/L Calcium 9.7 (8.4-10.2) mg/dL Magnesium 1.6 (1.6-2.3) mg/dL Total Bilirubin 1.2 (0.2-1.3) mg/dL AST 51 H (14-36) U/L ALT 29 (9-52) U/L Alkaline Phosphatase 108 (38-126) U/L Total Creatine Kinase 46 (30-135) U/L CK-MB (CK-2) 0.5 (0.0-2.4) ng/mL CK-MB (CK-2) Rel Index 1.1 Troponin I <0.012 (0.000-0.034) ng/mL NT-Pro-B Natriuret Pep pg/mL Total Protein 7.1 (6.3-8.2) g/dL Albumin 4.1 (3.5-5.0) g/dL Lipase 147 (23-300) U/L Urine Color Urine Appearance (Clear) Urine pH (5.0-8.0) Ur Specific [place] (1.001-1.035) Urine Protein (Negative) Urine Glucose (UA) (Negative) Urine Ketones (Negative) Urine Blood (Negative) Urine Nitrite (Negative) Urine Bilirubin (Negative) Urine Urobilinogen (<2.0) mg/dL Ur Leukocyte Esterase (Negative) Urine Opiates Screen (NotDetected) Ur Oxycodone Screen (NotDetected) Urine Methadone Screen (NotDetected) Ur Propoxyphene Screen (NotDetected) Ur Barbiturates Screen (NotDetected) U Tricyclic Antidepress (NotDetected) Ur Phencyclidine Scrn (NotDetected) Ur Amphetamines Screen (NotDetected) U Methamphetamines Scrn (NotDetected) U Benzodiazepines Scrn (NotDetected) Urine Cocaine Screen (NotDetected) U Marijuana (THC) Screen (NotDetected) Serum Alcohol <10 mg/dL 04/29/17 04/29/17 04/29/17 Range/Units 01:47 01:47 01:57 WBC (3.8-10.6) k/uL RBC (3.80-5.40) m/uL Hgb (11.4-16.0) gm/dL Hct (34.0-46.0) % MCV (80.0-100.0) fL MCH (25.0-35.0) pg MCHC (31.0-37.0) g/dL RDW (11.5-15.5) % Plt Count (150-450) k/uL Neutrophils % % Lymphocytes % % Monocytes % % Eosinophils % % Basophils % % Neutrophils # (1.3-7.7) k/uL Lymphocytes # (1.0-4.8) k/uL Monocytes # (0-1.0) k/uL Eosinophils # (0-0.7) k/uL Basophils # (0-0.2) k/uL Macrocytosis PT 10.8 (9.0-12.0) sec INR 1.1 (<1.2) APTT 24.0 (22.0-30.0) sec D-Dimer 5.20 H (<0.60) mg/L FEU Sodium (137-145) mmol/L Potassium (3.5-5.1) mmol/L Chloride (98-107) mmol/L Carbon Dioxide (22-30) mmol/L Anion Gap mmol/L BUN (7-17) mg/dL Creatinine (0.52-1.04) mg/dL Est GFR (CKD-EPI)AfAm (>60 ml/min/1.73 sqM) Est GFR (CKD-EPI)NonAf (>60 ml/min/1.73 sqM) Glucose (74-99) mg/dL Plasma Lactic Acid Giovanni 1.6 (0.7-2.0) mmol/L Calcium (8.4-10.2) mg/dL Magnesium (1.6-2.3) mg/dL Total Bilirubin (0.2-1.3) mg/dL AST (14-36) U/L ALT (9-52) U/L Alkaline Phosphatase (38-126) U/L Total Creatine Kinase (30-135) U/L CK-MB (CK-2) (0.0-2.4) ng/mL CK-MB (CK-2) Rel Index Troponin I (0.000-0.034) ng/mL NT-Pro-B Natriuret Pep 1320 pg/mL Total Protein (6.3-8.2) g/dL Albumin (3.5-5.0) g/dL Lipase (23-300) U/L Urine Color Urine Appearance (Clear) Urine pH (5.0-8.0) Ur Specific [place] (1.001-1.035) Urine Protein (Negative) Urine Glucose (UA) (Negative) Urine Ketones (Negative) Urine Blood (Negative) Urine Nitrite (Negative) Urine Bilirubin (Negative) Urine Urobilinogen (<2.0) mg/dL Ur Leukocyte Esterase (Negative) Urine Opiates Screen (NotDetected) Ur Oxycodone Screen (NotDetected) Urine Methadone Screen (NotDetected) Ur Propoxyphene Screen (NotDetected) Ur Barbiturates Screen (NotDetected) U Tricyclic Antidepress (NotDetected) Ur Phencyclidine Scrn (NotDetected) Ur Amphetamines Screen (NotDetected) U Methamphetamines Scrn (NotDetected) U Benzodiazepines Scrn (NotDetected) Urine Cocaine Screen (NotDetected) U Marijuana (THC) Screen (NotDetected) Serum Alcohol mg/dL 04/29/17 Range/Units 02:19 WBC (3.8-10.6) k/uL RBC (3.80-5.40) m/uL Hgb (11.4-16.0) gm/dL Hct (34.0-46.0) % MCV (80.0-100.0) fL MCH (25.0-35.0) pg MCHC (31.0-37.0) g/dL RDW (11.5-15.5) % Plt Count (150-450) k/uL Neutrophils % % Lymphocytes % % Monocytes % % Eosinophils % % Basophils % % Neutrophils # (1.3-7.7) k/uL Lymphocytes # (1.0-4.8) k/uL Monocytes # (0-1.0) k/uL Eosinophils # (0-0.7) k/uL Basophils # (0-0.2) k/uL Macrocytosis PT (9.0-12.0) sec INR (<1.2) APTT (22.0-30.0) sec D-Dimer (<0.60) mg/L FEU Sodium (137-145) mmol/L Potassium (3.5-5.1) mmol/L Chloride (98-107) mmol/L Carbon Dioxide (22-30) mmol/L Anion Gap mmol/L BUN (7-17) mg/dL Creatinine (0.52-1.04) mg/dL Est GFR (CKD-EPI)AfAm (>60 ml/min/1.73 sqM) Est GFR (CKD-EPI)NonAf (>60 ml/min/1.73 sqM) Glucose (74-99) mg/dL Plasma Lactic Acid Giovanni (0.7-2.0) mmol/L Calcium (8.4-10.2) mg/dL Magnesium (1.6-2.3) mg/dL Total Bilirubin (0.2-1.3) mg/dL AST (14-36) U/L ALT (9-52) U/L Alkaline Phosphatase (38-126) U/L Total Creatine Kinase (30-135) U/L CK-MB (CK-2) (0.0-2.4) ng/mL CK-MB (CK-2) Rel Index Troponin I (0.000-0.034) ng/mL NT-Pro-B Natriuret Pep pg/mL Total Protein (6.3-8.2) g/dL Albumin (3.5-5.0) g/dL Lipase (23-300) U/L Urine Color Yellow Urine Appearance Clear (Clear) Urine pH 6.5 (5.0-8.0) Ur Specific [place] 1.011 (1.001-1.035) Urine Protein Negative (Negative) Urine Glucose (UA) Negative (Negative) Urine Ketones 2+ H (Negative) Urine Blood Negative (Negative) Urine Nitrite Negative (Negative) Urine Bilirubin Negative (Negative) Urine Urobilinogen <2.0 (<2.0) mg/dL Ur Leukocyte Esterase Negative (Negative) Urine Opiates Screen Not Detected (NotDetected) Ur Oxycodone Screen Detected H (NotDetected) Urine Methadone Screen Not Detected (NotDetected) Ur Propoxyphene Screen Not Detected (NotDetected) Ur Barbiturates Screen Not Detected (NotDetected) U Tricyclic Antidepress Not Detected (NotDetected) Ur Phencyclidine Scrn Not Detected (NotDetected) Ur Amphetamines Screen Not Detected (NotDetected) U Methamphetamines Scrn Not Detected (NotDetected) U Benzodiazepines Scrn Detected H (NotDetected) Urine Cocaine Screen Not Detected (NotDetected) U Marijuana (THC) Screen Detected H (NotDetected) Serum Alcohol mg/dL Critical Care Time Critical Care Time: Yes Total Critical Care Time: 35 Disposition Clinical Impression: Chest pain, Healthcare-associated pneumonia Disposition: ADMITTED IP TO THIS [facility] Condition: Stable Referrals: None,Stated [Primary Care Provider] - 1-2 days Decision to Admit Reason: Admit from EC Decision Date: 04/29/17 Decision Time: 04:08
[2017-04-29 02:11] LABS: Basophils # (A) 0.1 k/uL (0-0.2); Basophils % (A) 1 %; Eosinophils # (A) 0.6 k/uL (0-0.7); Eosinophils % (A) 4 %; HCT 40.8 % (34.0-46.0); HGB 14.2 gm/dL (11.4-16.0); Lymphocytes % (A) 7 %; MCHC 34.8 g/dL (31.0-37.0); MCV 106.5 fL (80.0-100.0); Macrocytosis Moderate; Mean Platelet Volume 7.5; Monocytes # (A) 0.5 k/uL (0-1.0); Monocytes % (A) 4 %; Neutrophils % (A) 83 %; Platelet Count 265 k/uL (150-450); RBC 3.83 m/uL (3.80-5.40); RDW 13.1 % (11.5-15.5); WBC 14.5 k/uL (3.8-10.6)
[2017-04-29] MEDS: NITROGLYCERIN SL TABS 0.4 MG TAB SUBLINGUAL STA ×2 (02:14→02:25)
[2017-04-29 02:15] LABS: ALT 29 U/L (9-52); AST 51 U/L (14-36); Albumin 4.1 g/dL (3.5-5.0); Alcohol <10 mg/dL; Alkaline Phosphatase 108 U/L (38-126); Anion Gap 14 mmol/L; Blood Urea Nitrogen 3 mg/dL (7-17); Calcium 9.7 mg/dL (8.4-10.2); Carbon Dioxide 25 mmol/L (22-30); Chloride 100 mmol/L (98-107); Glucose 151 mg/dL (74-99); Lipase 147 U/L (23-300); Magnesium 1.6 mg/dL (1.6-2.3); Potassium 3.8 mmol/L (3.5-5.1); Sodium 139 mmol/L (137-145); Total Bilirubin 1.2 mg/dL (0.2-1.3); Total Protein 7.1 g/dL (6.3-8.2)
--- NOTE | 2017-04-29 02:21 | XR ---
EXAMINATION TYPE: XR chest 2V DATE OF EXAM: 04/29/2017 COMPARISON: 06/12/2016 HISTORY: Chest pain TECHNIQUE: Frontal and lateral views of the chest are obtained. FINDINGS: There is some infiltrate at the left posterior lung base. There is no heart failure. Heart size is normal. Bony thorax is intact. There are chest leads. IMPRESSION: There is new infiltrate and pleural reaction at the left lung base compared to old exam. No heart failure.
[2017-04-29 02:30] LABS: Appearance,Urine Clear (Clear); Bilirubin,Urine Negative (Negative); Blood,Urine Negative (Negative); Color,Urine Yellow; Glucose,Urine (UA) Negative (Negative); Ketones,Urine 2+ (Negative); Leukocyte Esterase,Urine Negative (Negative); Nitrite,Urine Negative (Negative); PH, Urine 6.5 (5.0-8.0); Protein,Urine Negative (Negative); Specific Gravity,Urine 1.011 (1.001-1.035); Urobilinogen,Urine <2.0 mg/dL (<2.0)
[2017-04-29 02:32] LABS: Creatine Kinase 46 U/L (30-135)
[2017-04-29 02:41] LABS: Cocaine Screen,Urine Not Detected (NotDetected); Phencyclidine Screen,Urine Not Detected (NotDetected); Urn Cannabinoid Scrn Detected (NotDetected)
[2017-04-29 02:42] LABS: Amphetamine Screen,Urine Not Detected (NotDetected); Barbiturate Screen,Urine Not Detected (NotDetected); Benzodiazepines Screen,Urine Detected (NotDetected); Methadone Screen, Urine Not Detected (NotDetected); Opiate Screen,Urine Not Detected (NotDetected); Oxycodone Screen, Urine Detected (NotDetected); Tricyclic Antidepressant,Urine Not Detected (NotDetected)
[2017-04-29 02:44] LABS: Creatine Kinase MB 0.5 ng/mL (0.0-2.4); Troponin I <0.012 ng/mL (0.000-0.034)
[2017-04-29] MEDS ORDERED: MORPHINE SULFATE/PF 10MG/10ML VL IVP STA (02:51)
[2017-04-29 02:52] LABS: INR 1.1 (<1.2); Prothrombin Time 10.8 sec (9.0-12.0)
[2017-04-29 02:53] LABS: D-Dimer 5.2 mg/L FEU (<0.60)
[2017-04-29] MEDS ORDERED: RX INFO: IV CONTRAST WAS GIVEN 1 EACH MISC MISCELLANE PRN (02:56)
--- NOTE | 2017-04-29 03:37 | CT ---
EXAMINATION TYPE: CT angio chest DATE OF EXAM: 04/29/2017 3:30 AM COMPARISON: NONE HISTORY: chest and abd pain with nausea, elevated d-dimer, R/O PE CT DLP: 2422.30 mGycm Automated exposure control for dose reduction was used. CONTRAST: CTA scan of the thorax is performed with IV Contrast, patient injected with 100 mL of Omnipaque 350, pulmonary embolism protocol. There are 3-D post processed images.. FINDINGS: Thoracic aorta has normal size and contour. There is no evidence of aneurysm or dissection. There is no mediastinal adenopathy. There is minimal atheromatous change in the thoracic aorta. I see no filli ng defects in the pulmonary arteries. There are no hilar masses. The lungs are clear of consolidation . There is no evidence of a pulmonary mass. There is no pleural effusion. There is mild linear infilt rate and atelectasis at the left posterior lung base. Bony thorax appears intact. IMPRESSION: NO EVIDENCE OF PULMONARY EMBOLISM. MILD INFILTRATE AND ATELECTASIS AT THE LEFT POSTERIOR LUNG BASE. A THEROSCLEROTIC VASCULAR DISEASE. NO EVIDENCE OF AORTIC DISSECTION.
--- NOTE | 2017-04-29 03:41 | CT ---
EXAMINATION TYPE: CT abdomen pelvis w con DATE OF EXAM: 04/29/2017 COMPARISON: 06/12/2016 HISTORY: chest and abd pain with nausea, elevated d-dimer CT DLP: 2422.30 mGycm Automated exposure control for dose reduction was used. TECHNIQUE: Helical acquisition of images was performed from the lung bases through the pelvis. CONTRAST: Performed without Oral Contrast and with IV Contrast, patient injected with 100 mL of Omnipaque 350. FINDINGS: There is some patchy linear infiltrate and atelectasis at the left posterior lung base. There is mini mal pleural thickening. Liver and spleen appear normal. Bile ducts are not dilated. Gallbladder is not dilated. There is no e vidence of pancreatic mass. Kidneys show satisfactory contrast opacification. There is no hydronephro sis. There is no retroperitoneal adenopathy. There is free fluid in the pelvis. Appendix appears norm al. I see no intestinal wall thickening. There are no dilated loops. Abdominal aorta is atheromatous. There is mild free fluid anterior to the liver. There is no evidence of bowel obstruction. I see no bony destructive process. There is no evidence of a pelvic mass. IMPRESSION: THERE IS MILD ASCITES FLUID THAT IS NEW COMPARED TO OLD EXAM. PATCHY INFILTRATE AND ATELECTASIS AT TH E LEFT POSTERIOR LUNG BASE. MILD SUBCUTANEOUS EDEMA AROUND THE ABDOMEN IS NEW COMPARED TO OLD EXAM.
[2017-04-29] MEDS ORDERED: VANCOMYCIN IV PER PHARMACY 1 EACH MISC MISCELLANE PRN (03:57)
[2017-04-29] MEDS ORDERED: CEFEPIME 2 GM in SODIUM CHLORIDE 0.9% 50 ML IVPB STA (03:57)
[2017-04-29] MEDS ORDERED: ACETAMINOPHEN TAB 500 MG TAB PO STA (03:57)
[2017-04-29] MEDS ORDERED: ACETAMINOPHEN TAB 325 MG TAB PO PRN (04:00)
[2017-04-29] MEDS ORDERED: MORPHINE SULFATE/PF 10MG/10ML VL IV PRN (04:00)
[2017-04-29] MEDS ORDERED: NALOXONE 0.4 MG/ML 1 ML VIAL IV PRN (04:00)
[2017-04-29] MEDS ORDERED: ALBUTEROL NEBULIZED 2.5 MG/3 ML INHALATION PRN (04:02)
[2017-04-29] MEDS ORDERED: ONDANSETRON 4 MG/2 ML VIAL IVP PRN (04:09)
[2017-04-29] MEDS ORDERED: VANCOMYCIN 1,500 MG in SODIUM CHLORIDE 0.9% 250 ML IVPB ONE (05:00)
[2017-04-29 08:48] LABS: Creatine Kinase 29 U/L (30-135)
[2017-04-29 08:59] LABS: Creatine Kinase MB 0.3 ng/mL (0.0-2.4); Troponin I <0.012 ng/mL (0.000-0.034)
[2017-04-29] MEDS ORDERED: VALSARTAN 160 MG TAB PO SCH (09:00)
[2017-04-29] MEDS: FUROSEMIDE 20 MG TAB PO SCH ×2 (10:40→21:13)
[2017-04-29] MEDS: ASPIRIN 81 MG PO SCH ×3 (10:40→21:13)
[2017-04-29] MEDS: CARVEDILOL 12.5 MG TAB PO SCH ×2 (10:40→19:06)
[2017-04-29] MEDS: traMADol 50 MG TAB PO PRN ×3 (13:01→23:48)
[2017-04-29] MEDS ORDERED: VANCOMYCIN 1,500 MG in SODIUM CHLORIDE 0.9% 250 ML IVPB SCH (13:30)
[2017-04-29] MEDS ORDERED: CEFEPIME 2 GM in SODIUM CHLORIDE 0.9% 50 ML IVPB SCH (14:00)
[2017-04-29] MEDS: CLOTRIMAZOLE/BETAMETH 1-0.05% CREAM 45 GM TUBE TOPICAL SCH ×2 (14:52→21:12)
[2017-04-29 15:53] LABS: Creatine Kinase 29 U/L (30-135)
--- NOTE | 2017-04-29 15:55 | P.HPIM ---
History of Present Illness Patient came to ER last night with complaints of chest pain which is pleuritic in nature 10/10 in severity nonradiating under the left breast area along with associated lightheadedness nausea, shortness of breath. EKG did not show any significant acute abnormality except for some nonspecific ST-T wave changes in the anterior leads with a normal echocardiogram without any wall motion abnormalities. Patient had a stress test in 2015 which was essentially within normal limits patient's chest pain is reproducible had a CAT scan of the chest which did not show any pulmonary embolism or pneumonia patient does have some atelectasis. Patient is found to have symptoms of sepsis including fever elevated white blood cell count and patient was recently discharged from [facility] after she was treated for abdominal wall cellulitis and patient at home is on doxycycline and is not feeling well for last few days. Blood cultures are being obtained. Patient still has significant redness local is of temperature in the abdomen with the abdominal wall edema. Patient was started on cefepime and vancomycin cefepime will be discontinued and vancomycin will be continued. Patient's chest pain resolved at this time Review of Systems REVIEW OF SYSTEMS: CONSTITUTIONAL: As mentioned in HPI HEENT: No recent visual problems or hearing problems. Denied any sore throat. CARDIOVASCULAR: No orthopnea, PND, no palpitations, no syncope. PULMONARY: no cough, no hemoptysis. GASTROINTESTINAL: No diarrhea, no nausea, no vomiting, no abdominal pain. Normoactive bowel sounds. NEUROLOGICAL: No headaches, no weakness, no numbness. HEMATOLOGICAL: Denies any bleeding or petechiae. GENITOURINARY: Denies any burning micturition, frequency, or urgency. MUSCULOSKELETAL/RHEUMATOLOGICAL: Denies any joint pain, swelling, or any muscle pain. ENDOCRINE: Denies any polyuria or polydipsia. The rest of the 14-point review of systems is negative. Past Medical History Past Medical History: Cancer, GERD/Reflux, Hypertension, Pneumonia, Thyroid Disorder Additional Past Medical History / Comment(s): Pt states she has had ascities intermittently for past 1.5 years and was just recently admitted to [facility] for this problem, nonhodgkins lymphoma treated with chemo-she has "2 spots left lower lobe of my lung that have been unchanged for 3 yrs, UTIs, hypothyroid recently diagnosed, ETOH abuse with electrolyte imbalances/thrombocytopenia. History of Any Multi-Drug Resistant Organisms: None Reported Past Surgical History: Breast Surgery Additional Past Surgical History / Comment(s): Uterine ablation, bilateral breast reduction, colonoscopies x 4 and a couple polypectomies-benign, D&Cs as a teen for heavy bleeding. Past Anesthesia/Blood Transfusion Reactions: Postoperative Nausea & Vomiting ( PONV) Additional Past Anesthesia/Blood Transfusion Reaction / Comment(s): Pt has received blood as a teen with heavy vaginal bleeding. She does not recall a reaction. Smoking Status: Current every day smoker - Past Family History Mother Family Medical History: AFIB, Fibromyalgia, Hyperlipidemia, Hypertension, Rheumatoid Arthritis (RA) Additional Family Medical History / Comment(s): Mother is 80 yrs old. Father Family Medical History: Myocardial Infarction (ID) Additional Family Medical History / Comment(s): Father of a ID at the age of 50yrs. Medications and Allergies Home Medications Medication Instructions Recorded Confirmed Type Aspirin EC [Ecotrin Low Dose] 81 mg PO HS 08/08/15 04/29/17 History Carvedilol [Coreg] 12.5 mg PO BID 08/08/15 04/29/17 History Cholecalciferol [Vitamin D3] 1,000 unit PO HS 08/08/15 04/29/17 History Valsartan [Diovan] 160 mg PO DAILY 08/08/15 04/29/17 History Clotrimazole/Betameth Cream 1 applic TOPICAL BID 04/29/17 04/29/17 History [Lotrisone] Doxycycline Hyclate 100 mg PO BID 04/29/17 04/29/17 History Folic Acid 1 mg PO DAILY 04/29/17 04/29/17 History Furosemide [Lasix] 20 mg PO DAILY 04/29/17 04/29/17 History Levothyroxine Sodium [Synthroid] 150 mcg PO DAILY 04/29/17 04/29/17 History Multivitamins, Thera [Multivitamin 1 tab PO DAILY 04/29/17 04/29/17 History (formulary)] Pantoprazole Sodium 40 mg PO DAILY 04/29/17 04/29/17 History Spironolactone 50 mg PO BID 04/29/17 04/29/17 History Thiamine [Vitamin B-1] 100 mg PO DAILY 04/29/17 04/29/17 History Thiamine [Vitamin B-1] 100 mg PO DAILY 04/29/17 04/29/17 History Allergies Allergy/AdvReac Type Severity Reaction Status Date / Time Latex, Natural Rubber Allergy Rash/Hives Verified 04/29/17 07:23 codeine AdvReac Vomiting Verified 04/29/17 07:23 Physical Exam Vitals: Vital Signs Temp Pulse Pulse Resp BP BP Pulse Ox 04/29/17 12:00 98.6 F 99 18 118/66 94 L 04/29/17 11:26 98.4 F 105 H 16 135/58 95 04/29/17 08:27 96 04/29/17 08:15 92 04/29/17 08:07 98.4 F 98 18 139/75 94 L 04/29/17 05:09 94 L 04/29/17 05:08 89 L 04/29/17 04:52 102 H 18 147/67 95 04/29/17 03:56 100.6 F H 107 H 18 160/78 98 04/29/17 03:01 100 18 156/76 95 04/29/17 02:24 109 H 20 172/85 94 L 04/29/17 02:00 88 L 04/29/17 01:40 99.5 F 109 H 22 179/96 90 L Intake and Output 04/29/17 04/29/17 04/29/17 06:59 14:59 22:59 Intake Total 537 Balance 537 Intake: Intake, IV Titration 300 Amount Cefepime 2 gm In Sodium 50 Chloride 0.9% 50 ml @ 100 mls/hr IVPB Q8H [facility] Rx#: [id number] Vancomycin 1,500 mg In 250 Sodium Chloride 0.9% 250 ml @ 125 mls/hr IVPB Q12HR@0000,1200 [facility] Rx#: [id number] Oral 237 Other: # Voids 1 Weight 96.162 kg PHYSICAL EXAMINATION: GENERAL: The patient is alert and oriented x3, not in any acute distress. Well developed, well nourished. HEENT: Pupils are round and equally reacting to light. EOMI. No scleral icterus. No conjunctival pallor. Normocephalic, atraumatic. No pharyngeal erythema. No thyromegaly. CARDIOVASCULAR: S1 and S2 present. No murmurs, rubs, or gallops. PULMONARY: Chest is clear to auscultation, no wheezing or crackles. ABDOMEN: Redness of the abdomen local is of temperature and tenderness of the abdomen no rebound or rigidity. MUSCULOSKELETAL: No joint swelling or deformity. EXTREMITIES: No cyanosis, clubbing, or pedal edema. NEUROLOGICAL: Gross neurological examination did not reveal any focal deficits. SKIN: No rashes. Results CBC & Chem 7: 04/29/17 01:47 04/29/17 01:47 Labs: Abnormal Lab Results - Last 24 Hours (Table) 04/29/17 04/29/17 04/29/17 Range/Units 01:47 01:47 01:47 WBC 14.5 H (3.8-10.6) k/uL MCV 106.5 H (80.0-100.0) fL MCH 37.0 H (25.0-35.0) pg Neutrophils # 12.0 H (1.3-7.7) k/uL D-Dimer 5.20 H (<0.60) mg/L FEU BUN 3 L (7-17) mg/dL Creatinine 0.50 L (0.52-1.04) mg/dL Glucose 151 H (74-99) mg/dL AST 51 H (14-36) U/L Total Creatine Kinase (30-135) U/L Urine Ketones (Negative) Ur Oxycodone Screen (NotDetected) U Benzodiazepines Scrn (NotDetected) U Marijuana (THC) Screen (NotDetected) 04/29/17 04/29/17 Range/Units 02:19 07:39 WBC (3.8-10.6) k/uL MCV (80.0-100.0) fL MCH (25.0-35.0) pg Neutrophils # (1.3-7.7) k/uL D-Dimer (<0.60) mg/L FEU BUN (7-17) mg/dL Creatinine (0.52-1.04) mg/dL Glucose (74-99) mg/dL AST (14-36) U/L Total Creatine Kinase 29 L (30-135) U/L Urine Ketones 2+ H (Negative) Ur Oxycodone Screen Detected H (NotDetected) U Benzodiazepines Scrn Detected H (NotDetected) U Marijuana (THC) Screen Detected H (NotDetected) Thrombosis Risk Factor Assmnt - Choose All That Apply Any of the Below Risk Factors Present?: Yes Each Factor Represents 1 point: Age 41-60 years, Obesity (BMI >25) Other Risk Factors: No Other congenital or acquired thrombophilia - If yes, enter type in comment: No Thrombosis Risk Factor Assessment Total Risk Factor Score: 2 Thrombosis Risk Factor Assessment Level: Low Risk Assessment and Plan Plan: -Sepsis: Probably due to cellulitis of the abdomen, infectious disease will be consulted vancomycin will be continued toxic and will be discontinued cefepime will be discontinued I do not believe patient has pneumonia patient he does urease essentially within normal limits does not have any symptoms of UTI. -Chest pain musculoskeletal in nature echocardiogram did not show any wall motion abnormalities. -Gastroesophageal reflux disease -Hypothyroidism -Hypertension: Patient is on the hypotensive side because of which will cut down the dose of valsartan History of alcohol use and according use: Counseling was done
[2017-04-29 16:06] LABS: Creatine Kinase MB 0.5 ng/mL (0.0-2.4); Troponin I <0.012 ng/mL (0.000-0.034)
[2017-04-29] MEDS: SODIUM CHLORIDE 0.9% 1,000 ML IV SCH ×2 (18:56→23:40)
[2017-04-29] MEDS: NYSTATIN 100,000 UNIT/GM POWD 15 GM TOPICAL SCH (21:12)
[2017-04-29] MEDS: SPIRONOLACTONE 25 MG TAB PO SCH (21:13)
[2017-04-29] MEDS: ceFAZolin IN SWFI 2 GM/20 ML SYRINGE IVP SCH (23:41)
--- NOTE | 2017-04-30 00:17 | CONS ---
CONSULTATION DATE OF CONSULTATION: 04/29/2017. REASON FOR CONSULTATION: Question of pneumonia and abdominal wall cellulitis. HISTORY OF PRESENT ILLNESS: The patient is a 57-year-old, female, apparently recently admitted to [facility] where the patient was treated for abdominal wall cellulitis and discharged home on oral doxycycline the patient currently has being taking. The patient has been brought into the ER at [facility] early this morning with chief complaints of chest pain. The patient did mention that she started having severe sharp chest pain anteriorly yesterday morning. The patient did get worse as the day went by. She waited for her to come from work who usually works afternoon shifts when he got home at midnight. The patient was brought into the hospital with increased chest pain. The patient did have very minimal cough, which is dry in nature. No URI symptoms. She did have a CT angiogram that was negative for pneumonia and did show some atelectasis. The patient still has abdominal wall redness that has not completely resolved with some warmth to it. She did have some dull aching pain in the abdominal wall area for the same duration no radiation. The patient has been given multiple antibiotic in form of cefepime and vancomycin. Cefepime . Continue vancomycin. I was consulted for further recommendation regarding antibiotic therapy. At the time of my evaluation, the patient's chest pain . REVIEW OF SYSTEMS: CONSTITUTIONAL: Positive for weakness and low-grade fever of 100.6. EYES: No complaint. ENT: No complaint. RESPIRATORY: As per HPI. CARDIOVASCULAR: No complaint. GENITOURINARY: No complaint. GASTROINTESTINAL: As per HPI. MUSCULOSKELETAL: No complaint. INTEGUMENTARY: No complaint. PSYCHOLOGICAL: No complaint. ENDOCRINE: No complaint. NEUROLOGIC: No complaint. PAST MEDICAL HISTORY: Significant for hypothyroidism, pneumonia, hypertension, and gastroesophageal reflux disease. PAST SURGICAL HISTORY: Breast surgery, uterine ablation, bilateral breast reduction, colonoscopy x4 with polypectomy, D and C for heavy bleeding. SOCIAL HISTORY: Current heavy smoker. and has a . FAMILY HISTORY: Mother with history of fibromyalgia, hypertension, hyperlipidemia, and RA. Father history of SC. ALLERGIES: LATEX and CODEINE. MEDICATION: Medications include the patient is currently on Tylenol, Ventolin, aspirin, Lotrisone, Coreg, Lasix, Synthroid, morphine sulfate, Narcan, Zofran, Protonix, Aldactone, Ultram, and Diovan. EXAMINATION: Blood pressure 140/94 with a pulse of 103, temperature 98.1, T-max 100.6. She is 92% on room air. General description is a middle-aged female up in the bed in no distress. HEENT: Shows no pallor or scleral icterus. Oral mucosa is moist. No pharyngeal erythema, thrush. NECK: Trachea central, no thyromegaly. LUNGS: Unlabored breathing. Clear to auscultation. No wheeze or crackle. HEART: S1, S2. Regular rate and rhythm. ABDOMEN: Soft. Mild distention. She did have abdominal wall redness, slightly warm to touch and evidence of cutaneous of the groin area. No skin breakdown. EXTREMITIES: No edema of feet. SKIN: No rash or mass palpable. NEUROLOGICAL: The patient is awake, alert, oriented x3. Mood and affect normal. LABS: Hemoglobin is 14.8 with white count 14.8. BUN of 30, creatinine 0.50. Electrolytes have been normal. Liver enzymes are normal. Urine has been negative. Urine drug screen was positive for oxycodone, benzo and marijuana. Influenza serology was negative. CT angiogram was negative for PE atelectasis. DIAGNOSTIC IMPRESSION: The patient with a fever and elevated white count, more likely abdominal wall cellulitis. Clinical suspicion is low for pneumonia as the patient's main symptom has been chest pain that has resolved, but no cough or sputum production. No consolidation noticed on the CT angiogram. The patient with diffuse abdominal wall redness with evidence of . This could be more likely a streptococcal disease rather than MRSA infection. PLAN: 1. Sharan the area of the redness, abdominal wall. 2. Discontinue vancomycin. 3. Cefazolin 2 g q.8 hours. 4. Nystatin powder to the bilateral groin full area. 5. We will follow up on the clinical condition, as well as cultures to further adjust medication if needed. Thank you for this consultation. We will follow this patient along with you. MMODL / IJN: [id number] /
[2017-04-30] MEDS: LEVOTHYROXINE 75 MCG TAB PO SCH (05:32)
[2017-04-30] MEDS: traMADol 50 MG TAB PO PRN ×4 (05:32→23:27)
[2017-04-30] MEDS: CARVEDILOL 12.5 MG TAB PO SCH ×2 (08:49→18:34)
[2017-04-30] MEDS: ceFAZolin IN SWFI 2 GM/20 ML SYRINGE IVP SCH ×3 (08:50→23:27)
[2017-04-30] MEDS: FUROSEMIDE 20 MG TAB PO SCH ×2 (08:50→21:10)
[2017-04-30] MEDS: NYSTATIN 100,000 UNIT/GM POWD 15 GM TOPICAL SCH ×2 (08:50→21:11)
[2017-04-30] MEDS: CLOTRIMAZOLE/BETAMETH 1-0.05% CREAM 45 GM TUBE TOPICAL SCH ×2 (08:50→21:11)
[2017-04-30] MEDS: PANTOPRAZOLE 40 MG TABLET PO SCH (08:51)
[2017-04-30] MEDS: VALSARTAN 40 MG TAB PO SCH (08:51)
[2017-04-30] MEDS: SPIRONOLACTONE 25 MG TAB PO SCH ×2 (08:51→21:10)
[2017-04-30 08:58] LABS: HCT 38.2 % (34.0-46.0); HGB 12.8 gm/dL (11.4-16.0); MCH 36.4 pg (25.0-35.0); MCHC 33.7 g/dL (31.0-37.0); MCV 108.1 fL (80.0-100.0); Macrocytosis Moderate; Mean Platelet Volume 7.2; Platelet Count 256 k/uL (150-450); RBC 3.53 m/uL (3.80-5.40); RDW 13.3 % (11.5-15.5); WBC 9.7 k/uL (3.8-10.6)
[2017-04-30 09:48] LABS: Anion Gap 12 mmol/L; Blood Urea Nitrogen 4 mg/dL (7-17); Calcium 8.8 mg/dL (8.4-10.2); Carbon Dioxide 26 mmol/L (22-30); Chloride 99 mmol/L (98-107); Glucose 169 mg/dL (74-99); Potassium 3.4 mmol/L (3.5-5.1); Sodium 137 mmol/L (137-145)
--- NOTE | 2017-04-30 10:03 | ECHOF ---
Referral Reason: MEASUREMENTS -------- HEIGHT: 154.9 cm WEIGHT: 96.2 kg BP: RVIDd: 2.9 cm (< 3.3) IVSd: 1.1 cm (0.6 - 1.1) LVIDd: 4.2 cm (3.9 - 5.3) LVPWd: 1.2 cm (0.6 - 1.1) IVSs: 1.5 cm LVIDs: 3.1 cm LVPWs: 1.6 cm Ao Diam: 2.6 cm (2.0 - 3.7) AV Cusp: 1.5 cm (1.5 - 2.6) LA Diam: 3.7 cm (2.7 - 3.8) MV EXCURSION: 17.354 mm (> 18.000) MV EF SLOPE: 139 mm/s (70 - 150) EPSS: 0.5 cm MV E Arun: 1.05 m/s MV DecT: 104 ms MV A Arun: 0.73 m/s MV E/A Ratio: 1.43 RAP: 5.00 mmHg RVSP: 12.32 mmHg FINDINGS -------- Sinus rhythm. This was a technically difficult study with suboptimal views. The left ventricular size is normal. There is mild concentric left ventricular hypertrophy. Overa ll left ventricular systolic function is normal with, an EF between 55 - 60 %. The right ventricle is normal in size and function. The right atrium is normal in size. The aortic valve is trileaflet, and appears structurally normal. No aortic stenosis or regurgitation. There is trace mitral regurgitation. Trace tricuspid regurgitation present. The right ventricular systolic pressure, as measured by Dopp ler, is 12.32mmHg. Pulmonic valve appears structurally normal. The aortic root size is normal. The pericardium is normal. CONCLUSIONS -------- 1. Sinus rhythm. 2. This was a technically difficult study with suboptimal views. 3. The left ventricular size is normal. 4. There is mild concentric left ventricular hypertrophy. 5. Overall left ventricular systolic function is normal with, an EF between 55 - 60 %. 6. The right ventricle is normal in size and function. 7. The right atrium is normal in size. 8. Lumason used 9. The aortic valve is trileaflet, and appears structurally normal. No aortic stenosis or regurgitati on. 10. There is trace mitral regurgitation. 11. Trace tricuspid regurgitation present. 12. The right ventricular systolic pressure, as measured by Doppler, is 12.32mmHg. 13. Pulmonic valve appears structurally normal. 14. The aortic root size is normal. 15. The pericardium is normal. BOX PRINTER: Radha Wilson RDCS
[2017-04-30] MEDS ORDERED: Potassium Replacement Protocol 1 EACH MISC MISCELLANE PRN (11:51)
[2017-04-30] MEDS: POTASSIUM CHLORIDE ER 20 MEQ TAB.ER PO SCH ×3 (12:54→14:17)
[2017-04-30] MEDS: SODIUM CHLORIDE 0.9% 1,000 ML IV SCH ×2 (12:58→21:11)
[2017-04-30] MEDS ORDERED: MORPHINE ORAL SOLN 10 MG/5 ML CUP PO PRN (14:53)
--- NOTE | 2017-04-30 15:18 | P.PN ---
Subjective Patient was admitted for abdominal wall cellulitis and sepsis secondary to that and patient is feeling much better today. Patient is on ceftezole and which will be continued infectious disease evaluated the patient. Constitutional: Denied any fatigue denied any fever. Cardio vascular: denied any chest pain, palpitations Gastrointestinal denied any nausea vomiting Pulmonary: Denied any shortness of breath cough Neurologic denied any new focal deficits Objective - Vital Signs Vital signs: Vital Signs Temp 97.2 F L 04/30/17 14:56 Pulse 92 04/30/17 14:56 Resp 16 04/30/17 14:56 BP 118/68 04/30/17 14:56 Pulse Ox 93 L 04/30/17 14:56 Intake & Output 04/29/17 04/30/17 04/30/17 18:59 06:59 18:59 Intake Total 024 730 7462 Balance 285 164 4066 Intake: Intake, IV Titration 300 50 Amount Cefepime 2 gm In Sodium 50 Chloride 0.9% 50 ml @ 100 mls/hr IVPB Q8H [facility] Rx#: [id number] Sodium Chloride 0.9% 1, 0 000 ml @ 100 mls/hr IV . Q10H [facility] Rx#:[id number] Vancomycin 1,500 mg In 250 Sodium Chloride 0.9% 250 ml @ 125 mls/hr IVPB Q12HR@0000,1200 [facility] Rx#: [id number] ceFAZolin 2 gm In Sodium 50 Chloride 0.9% 50 ml @ 100 mls/hr IVPB Q8HR [facility] Rx# :[id number] Oral [phone] Other: # Voids 1 4 4 - Exam PHYSICAL EXAMINATION: GENERAL: The patient is alert and oriented x3, not in any acute distress. Well developed, well nourished. HEENT: Pupils are round and equally reacting to light. EOMI. No scleral icterus. No conjunctival pallor. Normocephalic, atraumatic. No pharyngeal erythema. No thyromegaly. CARDIOVASCULAR: S1 and S2 present. No murmurs, rubs, or gallops. PULMONARY: Chest is clear to auscultation, no wheezing or crackles. ABDOMEN: Soft, nontender, nondistended, abdominal wall redness cellulitis and edema significantly improved MUSCULOSKELETAL: No joint swelling or deformity. EXTREMITIES: No cyanosis, clubbing, or pedal edema. NEUROLOGICAL: Gross neurological examination did not reveal any focal deficits. SKIN: No rashes. - Labs CBC & Chem 7: 04/30/17 08:39 04/30/17 08:39 Labs: Abnormal Lab Results - Last 24 Hours (Table) 04/29/17 04/30/17 04/30/17 Range/Units 14:59 08:39 08:39 RBC 3.53 L (3.80-5.40) m/uL MCV 108.1 H (80.0-100.0) fL MCH 36.4 H (25.0-35.0) pg Potassium 3.4 L (3.5-5.1) mmol/L BUN 4 L (7-17) mg/dL Creatinine 0.48 L (0.52-1.04) mg/dL Glucose 169 H (74-99) mg/dL Total Creatine Kinase 29 L (30-135) U/L Microbiology - Last 24 Hours (Table) 04/29/17 01:57 Blood Culture - Preliminary Blood No Growth after 24 hours Assessment and Plan Plan: -Sepsis: Probably due to cellulitis of the abdomen, infectious disease evaluated the patient and patient is presently on ceftezole in with significant improvement in cellulitis. Possibly of discharge tomorrow on Keflex. -Chest pain musculoskeletal in nature echocardiogram did not show any wall motion abnormalities. Patient's chest pain completely resolved at this time -Gastroesophageal reflux disease -Hypothyroidism -Hypertension: The patient is well controlled with present regimen History of alcohol use and according use: Counseling was done
--- NOTE | 2017-04-30 16:18 | PN ---
PROGRESS NOTE DATE OF SERVICE: 04/30/2017 REASON FOR FOLLOWUP: 1. Abdominal wall cellulitis. 2. Groin area cutaneous candidiasis. INTERVAL HISTORY: The patient is afebrile. She is feeling better, breathing comfortably. Denies having any chest pain, shortness of breath or cough. The abdominal wall swelling and redness have improved. No diarrhea. PHYSICAL EXAMINATION: Blood pressure 138/81 with a pulse of 91, temperature 98.3. She is 91% on room air. General description is a middle-aged female lying in bed in no distress. RESPIRATORY SYSTEM: Unlabored breathing. Clear to auscultation anteriorly. HEART: S1, S2. Regular rate and rhythm. ABDOMEN: Soft. Overall swelling and redness have improved. No drainage. EXTREMITIES: No edema of feet. LABS: Hemoglobin 12.8, white count 9.7, BUN of 4, creatinine 0.48. DIAGNOSTIC IMPRESSION AND PLAN: 1. Patient with abdominal wall cellulitis with evidence of cutaneous candidiasis, likely streptococcal disease. Patient to continue on cefazolin 2 grams q.8 for another 24 hours. If continues to improve, to finish therapy with oral Keflex. 2. Patient with groin area cutaneous candidiasis. Nystatin powder for about a week to keep the area dry. MMODL / IJN: [id number] /
[2017-04-30] MEDS: ASPIRIN 81 MG PO SCH (21:10)
[2017-05-01] MEDS: traMADol 50 MG TAB PO PRN ×2 (06:23→13:34)
[2017-05-01] MEDS: LEVOTHYROXINE 75 MCG TAB PO SCH (06:28)
[2017-05-01 07:27] VITALS: RESP 18
[2017-05-01] MEDS: SPIRONOLACTONE 25 MG TAB PO SCH (07:53)
[2017-05-01] MEDS: CARVEDILOL 12.5 MG TAB PO SCH (07:53)
[2017-05-01] MEDS: FUROSEMIDE 20 MG TAB PO SCH (07:53)
[2017-05-01] MEDS: ceFAZolin IN SWFI 2 GM/20 ML SYRINGE IVP SCH (07:53)
[2017-05-01] MEDS: PANTOPRAZOLE 40 MG TABLET PO SCH (07:53)
[2017-05-01] MEDS: VALSARTAN 40 MG TAB PO SCH (07:53)
[2017-05-01] MEDS: CLOTRIMAZOLE/BETAMETH 1-0.05% CREAM 45 GM TUBE TOPICAL SCH (07:54)
[2017-05-01] MEDS: NYSTATIN 100,000 UNIT/GM POWD 15 GM TOPICAL SCH (07:54)
[2017-05-01] MEDS ORDERED: VANCOMYCIN TROUGH DUE 1 EACH MISC MISCELLANE ONE (11:00)
--- NOTE | 2017-05-01 13:04 | PN ---
PROGRESS NOTE DATE OF SERVICE: 05/01/2017. REASON FOR FOLLOWUP: Abdominal wall cellulitis and cutaneous candidiasis. INTERVAL HISTORY: The patient is afebrile. She is breathing comfortably. Abdominal wall swelling and redness much improved. Denies any chest pain, shortness of breath, cough and no diarrhea. PHYSICAL EXAMINATION: Blood pressure 153/85 with a pulse of 87, temperature 97.6. She is 93% on room air. General description is a middle aged female, lying in bed in no distress. RESPIRATORY SYSTEM: Unlabored breathing, clear to auscultation anteriorly. HEART: S1, S2. Regular rate and rhythm. Abdominal wall redness almost resolved. EXTREMITIES: No edema of the feet. LABS: Hemoglobin is 12.1, white count of 9.7, BUN of 4, creatinine of 0.48. Blood culture has been negative. DIAGNOSTIC IMPRESSION AND PLAN: 1. Patient with acute abdominal wall cellulitis, responding very well to the IV cefazolin antibiotic. Will transition to oral Keflex 500 mg q.6 hours for 10 days, script was sent to pharmacy. 2. Groin cutaneous candidiasis, nystatin powder twice a day for about a week. Script was sent to the pharmacy. MMODL / IJN: [id number] /
--- NOTE | 2017-05-01 13:31 | P.DS ---
Providers Date of admission: 04/29/17 04:00 Attending physician: Omero Gilmore Consults: 04/29/17 15:35 Consult Physician Routine Consulting Provider: Andrew Guevara Consult Reason/Comments: Cellulitis of abdomen Do you want consulting provider notified?: Yes Primary care physician: Stated None Hospital Course: Patient was admitted for abdominal wall cellulitis and sepsis secondary to that and patient is feeling much better today. Patient is on cefazolin and which will be continued infectious disease evaluated the patient. Patient does have anxiety disorder. PHYSICAL EXAMINATION: GENERAL: The patient is alert and oriented x3, not in any acute distress. Well developed, well nourished. HEENT: Pupils are round and equally reacting to light. EOMI. No scleral icterus. No conjunctival pallor. Normocephalic, atraumatic. No pharyngeal erythema. No thyromegaly. CARDIOVASCULAR: S1 and S2 present. No murmurs, rubs, or gallops. PULMONARY: Chest is clear to auscultation, no wheezing or crackles. ABDOMEN: Soft, nontender, nondistended, abdominal wall redness cellulitis and edema significantly improved MUSCULOSKELETAL: No joint swelling or deformity. EXTREMITIES: No cyanosis, clubbing, or pedal edema. NEUROLOGICAL: Gross neurological examination did not reveal any focal deficits. SKIN: No rashes. Assessment and Plan Plan: -Sepsis: Patient was on cefazolin in here and will be discharged on Keflex, 518 infectious disease recommendations -Chest pain musculoskeletal in nature echocardiogram did not show any wall motion abnormalities. Patient's chest pain completely resolved at this time, and is musculoskeletal in nature -Gastroesophageal reflux disease -Hypothyroidism -Hypertension: The patient is well controlled with present regimen History of alcohol use and according use: Counseling was done Patient Condition at Discharge: Stable Plan - Discharge Summary Discharge Rx Participant: No New Discharge Prescriptions: New Cephalexin [Keflex] 500 mg PO Q6HR #40 cap Nystatin 100,000 Unit/gm Powd [Mycostatin Powder] 1 applic TOPICAL BID #90 gm Discontinued Doxycycline Hyclate 100 mg PO BID No Action Cholecalciferol [Vitamin D3] 1,000 unit PO HS Aspirin EC [Ecotrin Low Dose] 81 mg PO HS Valsartan [Diovan] 160 mg PO DAILY Carvedilol [Coreg] 12.5 mg PO BID Spironolactone 50 mg PO BID Furosemide [Lasix] 20 mg PO DAILY Pantoprazole Sodium 40 mg PO DAILY Thiamine [Vitamin B-1] 100 mg PO DAILY Multivitamins, Thera [Multivitamin (formulary)] 1 tab PO DAILY Clotrimazole/Betameth Cream [Lotrisone] 1 applic TOPICAL BID Thiamine [Vitamin B-1] 100 mg PO DAILY Folic Acid 1 mg PO DAILY Levothyroxine Sodium [Synthroid] 150 mcg PO DAILY Discharge Medication List Aspirin EC [Ecotrin Low Dose] 81 mg PO HS 08/08/15 [History] Carvedilol [Coreg] 12.5 mg PO BID 08/08/15 [History] Cholecalciferol [Vitamin D3] 1,000 unit PO HS 08/08/15 [History] Valsartan [Diovan] 160 mg PO DAILY 08/08/15 [History] Clotrimazole/Betameth Cream [Lotrisone] 1 applic TOPICAL BID 04/29/17 [History] Folic Acid 1 mg PO DAILY 04/29/17 [History] Furosemide [Lasix] 20 mg PO DAILY 04/29/17 [History] Levothyroxine Sodium [Synthroid] 150 mcg PO DAILY 04/29/17 [History] Multivitamins, Thera [Multivitamin (formulary)] 1 tab PO DAILY 04/29/17 [History ] Pantoprazole Sodium 40 mg PO DAILY 04/29/17 [History] Spironolactone 50 mg PO BID 04/29/17 [History] Thiamine [Vitamin B-1] 100 mg PO DAILY 04/29/17 [History] Thiamine [Vitamin B-1] 100 mg PO DAILY 04/29/17 [History] Cephalexin [Keflex] 500 mg PO Q6HR #40 cap 05/01/17 [Rx] Nystatin 100,000 Unit/gm Powd [Mycostatin Powder] 1 applic TOPICAL BID #90 gm [Rx] Follow up Appointment(s)/Referral(s): Mel Soria III, MD [STAFF PHYSICIAN] - 1 Week Andrew Guevara MD [STAFF PHYSICIAN] - 1 Week Patient Instructions/Handouts: Cellulitis (DC) Activity/Diet/Wound Care/Special Instructions: activity as tolerated heart healthy diet nystatin powder/ointment to abdomen
[2017-05-01] MEDS: SODIUM CHLORIDE 0.9% 1,000 ML IV SCH (14:40)
[2017-05-01 15:14] VITALS: BP 140/82; PULSE 99; TEMP 97
== END 2017-05-01 16:19 | disposition home or self-care (01) | DRG 872 ==
LOC: EC 01:37 → 6SEL 04:00 → 4MS4W 17:46
PROVIDERS: ADMIT Hospitalist; ATTEND Hospitalist
DX: A41.9 Sepsis, unspecified organism (principal); L03.311 Cellulitis of abdominal wall; B37.2 Candidiasis of skin and nail; E03.9 Hypothyroidism, unspecified; F17.200 Nicotine dependence, unspecified, uncomplicated; F10.10 Alcohol abuse, uncomplicated; J98.11 Atelectasis; F41.9 Anxiety disorder, unspecified; I10 Essential (primary) hypertension; I25.2 Old myocardial infarction; K21.9 Gastro-esophageal reflux disease without esophagitis; R79.1 Abnormal coagulation profile; Z82.49 Family history of ischemic heart disease and other diseases of the circulatory system; Z82.61 Family history of arthritis; Z85.72 Personal history of non-Hodgkin lymphomas; R07.89 Other chest pain; Z71.41 Alcohol abuse counseling and surveillance of alcoholic; Z79.899 Other long term (current) drug therapy; Z79.82 Long term (current) use of aspirin; Z92.21 Personal history of antineoplastic chemotherapy; Z79.890 Hormone replacement therapy
CPT/HCPCS: 36415; 71046; 71275; 74177; 80048; 80053; 80202; 80306; 80320; 81003; 82550; 82553; 83605; 83690; 83735; 83880; 84484; 85025; 85027; 85379; 85610; 85730; 87040; 87502; 93005; 93306; 96365; 96366; 96368; 96375; 96376; 99291

== ENCOUNTER 2021-06-06 15:11 | Emergency (ER) | payer BC ==
[2021-06-06 15:43] VITALS: TEMP 98
[2021-06-06] MEDS ORDERED: ASPIRIN 81 MG PO STA (16:28)
--- NOTE | 2021-06-06 16:28 | ED ---
General Adult HPI - General Chief complaint: Chest Pain Stated complaint: Chest Pain Sent by urgent care Time Seen by Provider: 06/06/21 16:09 Source: patient, family Mode of arrival: ambulatory Limitations: no limitations - History of Present Illness Initial comments: Dictation was produced using [employer] dictation software. please excuse any gramma tical, word or spelling errors. Chief Complaint: 61 yo Female past medical history of anxiety presents to the ER for chest pain. She is worried about having a heart attack History of Present Illness: 61-year-old female she has past medical history of anxiety. She has past nuchal history hypertension thyroid disease. She is strong family history of coronary artery disease. See her today for 1 month of intermittent chest pain episodes. States that the discomfort that is moving. He states that it's like a dull ache that is different physician every time she has an episode. Sometimes Her Left Chest and Sometimes on the Right. Other times in the middle. It lasts for several minutes. She denies to colic pain causing more discomfort. Symptoms are nonradiating not associated with diaphoresis or nausea. Couple years ago she reports having had a negative stress test. She has an appointment with cardiology scheduled next week. The ROS documented in this emergency department record has been reviewed and confirmed by me. Those systems with pertinent positive or negative responses have been documented in the HPI. All other systems are other negative and/or noncontributory. PHYSICAL EXAM: General Impression: Alert and oriented x3, not in acute distress HEENT: Normocephalic atraumatic, extra-ocular movements intact, pupils equal and reactive to light bilaterally, mucous membranes moist. Cardiovascular: Heart regular rate and rhythm Chest: Able to complete full sentences, no retractions, no tachypnea Abdomen: abdomen soft, non-tender, non-distended, no organomegaly Musculoskeletal: Pulses present and equal in all extremities, no peripheral edema Motor: no focal deficits noted Neurological: CN II-XII grossly intact, no focal motor or sensory deficits noted Skin: Intact with no visualized rashes Psych: Normal affect and mood ED course: 61-year-old female with atypical chest pain atypical features. She does have significant risk factors. Asymptomatic at bedside. Vital signs upon arrival are within acceptable limits. Patient is well-appearing at bedside. She is eating chips and having normal conversation. She believes it her symptoms may be secondary to her anxiety but decided come to the ER to be evaluated. EKG does not show any signs of ischemia or infarction. Valuation obtained. CBC is unremarkable. Metabolic panel shows sodium 127. Troponin is negative. Patient observed in the emergency department for approximately 2 hours and 15 minutes per she is reevaluated at bedside at 5:30 PM found to be in stable medical conditions. Patient was notified of the results of her blood tests. She states she has history of low sodium is being treated and evaluated by her primary care doctor and cigarette making examiner. Disposition options were discussed per she does not want a second troponin was be discharged. She understands that she is assuming some risk per she states that she will come back to emergency department if her symptoms return or begin to get worse. Otherwise she is told to maintain her appointment with cardiology given an aspirin prior to discharge. EKG interpretation: Ventricular rate 70, sinus rhythm,. 184, Q 77, QTC 402. No NE prolongation, no QTC prolongation, no ST or T-wave changes noted. Overall, this EKG is unremarkable - Related Data Home Medications Medication Instructions Recorded Confirmed Aspirin EC [Ecotrin Low Dose] 81 mg PO HS 08/08/15 04/29/17 Carvedilol [Coreg] 12.5 mg PO BID 08/08/15 04/29/17 Cholecalciferol [Vitamin D3 (25 1,000 unit PO HS 08/08/15 04/29/17 Mcg = 1000 Iu)] Valsartan [Diovan] 160 mg PO DAILY 08/08/15 04/29/17 Clotrimazole/Betameth Cream 1 applic TOPICAL BID 04/29/17 04/29/17 [Lotrisone] Folic Acid 1 mg PO DAILY 04/29/17 04/29/17 Furosemide [Lasix] 20 mg PO DAILY 04/29/17 04/29/17 Levothyroxine Sodium [Synthroid] 150 mcg PO DAILY 04/29/17 04/29/17 Multivitamins, Thera [Multivitamin 1 tab PO DAILY 04/29/17 04/29/17 (formulary)] Pantoprazole Sodium 40 mg PO DAILY 04/29/17 04/29/17 Spironolactone 50 mg PO BID 04/29/17 04/29/17 Thiamine [Vitamin B-1] 100 mg PO DAILY 04/29/17 04/29/17 Thiamine [Vitamin B-1] 100 mg PO DAILY 04/29/17 04/29/17 Previous Rx's Medication Instructions Recorded ALPRAZolam [Xanax] 0.25 mg PO Q8H PRN #15 tab 05/01/17 Cephalexin [Keflex] 500 mg PO Q6HR #40 cap 05/01/17 Nystatin 100,000 Unit/gm Powd 1 applic TOPICAL BID #90 gm 05/01/17 [Mycostatin Powder] traMADol HCL [Ultram] 50 mg PO Q6H PRN #20 tab 05/01/17 Allergies Allergy/AdvReac Type Severity Reaction Status Date / Time Latex, Natural Rubber Allergy Rash/Hives Verified 06/06/21 15:43 codeine AdvReac Vomiting Verified 06/06/21 15:43 Review of Systems ROS Statement: Those systems with pertinent positive or pertinent negative responses have been documented in the HPI. ROS Other: All systems not noted in ROS Statement are negative. Past Medical History Past Medical History: Cancer, GERD/Reflux, Hypertension, Pneumonia, Thyroid Disorder Additional Past Medical History / Comment(s): Pt states she has had ascities intermittently for past 1.5 years and was just recently admitted to [facility] for this problem, nonhodgkins lymphoma treated with chemo-she has "2 spots left lower lobe of my lung that have been unchanged for 3 yrs, UTIs, hypothyroid recently diagnosed, ETOH abuse with electrolyte imbalances/thrombocytopenia. History of Any Multi-Drug Resistant Organisms: None Reported Past Surgical History: Breast Surgery Additional Past Surgical History / Comment(s): Uterine ablation, bilateral b reast reduction, colonoscopies x 4 and a couple polypectomies-benign, D&Cs as a teen for heavy bleeding. Past Anesthesia/Blood Transfusion Reactions: Postoperative Nausea & Vomiting (PONV) Additional Past Anesthesia/Blood Transfusion Reaction / Comment(s): Pt has received blood as a teen with heavy vaginal bleeding. She does not recall a reaction. Past Psychological History: Anxiety, Depression Smoking Status: Current every day smoker Past Alcohol Use History: Daily Past Drug Use History: Marijuana - Past Family History Mother Family Medical History: AFIB, Fibromyalgia, Hyperlipidemia, Hypertension, Rheumatoid Arthritis (RA) Additional Family Medical History / Comment(s): Mother is 80 yrs old. Father Family Medical History: Myocardial Infarction (GA) Additional Family Medical History / Comment(s): Father of a GA at the age of 50yrs. General Exam Limitations: no limitations Course Vital Signs 06/06/21 06/06/21 15:38 16:28 Temperature 98.0 F Pulse Rate 83 76 Respiratory 18 16 Rate Blood Pressure 99/75 138/71 O2 Sat by Pulse 96 96 Oximetry Medical Decision Making - Lab Data Result diagrams: 06/06/21 15:37 06/06/21 16:32 Lab Results 06/06/21 06/06/21 06/06/21 Range/Units 15:37 16:32 16:32 WBC 7.1 (3.8-10.6) k/uL RBC 4.24 (3.80-5.40) m/uL Hgb 15.0 (11.4-16.0) gm/dL Hct 44.2 (34.0-46.0) % MCV 104.3 H (80.0-100.0) fL MCH 35.4 H (25.0-35.0) pg MCHC 34.0 (31.0-37.0) g/dL RDW 15.1 (11.5-15.5) % Plt Count 157 (150-450) k/uL MPV 7.6 Neutrophils % 66 % Lymphocytes % 19 % Monocytes % 9 % Eosinophils % 2 % Basophils % 1 % Neutrophils # 4.7 (1.3-7.7) k/uL Lymphocytes # 1.4 (1.0-4.8) k/uL Monocytes # 0.6 (0-1.0) k/uL Eosinophils # 0.2 (0-0.7) k/uL Basophils # 0.1 (0-0.2) k/uL Macrocytosis Moderate Sodium 127 L (137-145) mmol/L Potassium 4.2 (3.5-5.1) mmol/L Chloride 92 L (98-107) mmol/L Carbon Dioxide 29 (22-30) mmol/L Anion Gap 6 mmol/L BUN <2 L (7-17) mg/dL Creatinine 0.60 (0.52-1.04) mg/dL Est GFR (CKD-EPI)AfAm >90 (>60 ml/min/1.73 sqM) Est GFR (CKD-EPI)NonAf >90 (>60 ml/min/1.73 sqM) Glucose 151 H (74-99) mg/dL Calcium 9.1 (8.4-10.2) mg/dL Troponin I <0.012 (0.000-0.034) ng/mL Disposition Clinical Impression: Chest pain Disposition: HOME SELF-CARE Condition: Fair Instructions (If sedation given, give patient instructions): Chest Pain (ED) Is patient prescribed a controlled substance at d/c from ED?: No Referrals: None,Stated [REFERRING] - 1-2 days Jim Encarnacion MD [STAFF PHYSICIAN] - 1-2 days
[2021-06-06 16:34] VITALS: BP 138/71; PULSE 76; RESP 16
[2021-06-06 16:42] LABS: African American GFR (CKD) >90 (>60 ml/min/1.73 sqM); Anion Gap 6 mmol/L; Blood Urea Nitrogen <2 mg/dL (7-17); Calcium 9.1 mg/dL (8.4-10.2); Carbon Dioxide 29 mmol/L (22-30); Chloride 92 mmol/L (98-107); Glucose 151 mg/dL (74-99); Non-African American GFR(CKD) >90 (>60 ml/min/1.73 sqM); Potassium 4.2 mmol/L (3.5-5.1); Sodium 127 mmol/L (137-145)
[2021-06-06 16:50] LABS: Basophils # (A) 0.1 k/uL (0-0.2); Basophils % (A) 1 %; Eosinophils # (A) 0.2 k/uL (0-0.7); Eosinophils % (A) 2 %; HCT 44.2 % (34.0-46.0); Lymphocytes # (A) 1.4 k/uL (1.0-4.8); Lymphocytes % (A) 19 %; MCH 35.4 pg (25.0-35.0); MCV 104.3 fL (80.0-100.0); Macrocytosis Moderate; Mean Platelet Volume 7.6; Monocytes # (A) 0.6 k/uL (0-1.0); Monocytes % (A) 9 %; Neutrophils # (A) 4.7 k/uL (1.3-7.7); Neutrophils % (A) 66 %; Platelet Count 157 k/uL (150-450); RBC 4.24 m/uL (3.80-5.40); RDW 15.1 % (11.5-15.5); WBC 7.1 k/uL (3.8-10.6)
== END 2021-06-06 17:36 | disposition home or self-care (01) ==
LOC: EC 15:11
DX: R07.89 Other chest pain (principal); K21.9 Gastro-esophageal reflux disease without esophagitis; I10 Essential (primary) hypertension; E07.9 Disorder of thyroid, unspecified; F41.9 Anxiety disorder, unspecified; F32.A Depression, unspecified; F17.200 Nicotine dependence, unspecified, uncomplicated; F12.90 Cannabis use, unspecified, uncomplicated; Z79.82 Long term (current) use of aspirin; Z91.040 Latex allergy status; Z88.5 Allergy status to narcotic agent; Z87.440 Personal history of urinary (tract) infections
CPT/HCPCS: 36415; 80048; 84484; 85025; 93005; 99285

== ENCOUNTER 2021-10-26 08:01 | Emergency (ER) | payer BC ==
[2021-10-26 08:12] VITALS: TEMP 97.7
[2021-10-26] MEDS ORDERED: SODIUM CHLORIDE 0.9% 1,000 ML IV STA ×2 (08:31→10:50)
[2021-10-26] MEDS ORDERED: diphenhydrAMINE 50 MG/ML 1 ML VIAL IVP STA (08:31)
[2021-10-26] MEDS ORDERED: MORPHINE SULFATE 4 MG/ML SYRINGE IV STA (08:31)
[2021-10-26] MEDS ORDERED: PANTOPRAZOLE 40 MG/10 ML VIAL IVP STA (08:31)
[2021-10-26] MEDS ORDERED: ONDANSETRON 4 MG/2 ML VIAL IVP STA (08:31)
--- NOTE | 2021-10-26 08:42 | ED ---
General Adult HPI - General Chief complaint: Chest Pain Stated complaint: Chest pain, bowel obstruction Time Seen by Provider: 10/26/21 08:19 Source: patient, RN notes reviewed, old records reviewed Mode of arrival: ambulatory Limitations: no limitations - History of Present Illness Initial comments: Patient is a 61-year-old female with past medical history remarkable for alcohol use, hypertension, prior cancer, thyroid disorder who presents emergency department over concern for possible bowel extraction. States she has not been having regular bowel movements for the last 2 weeks, noticed over the last few days that she has not had any bowel movements. Has been attempting to do MiraLAX for this with minimal improvement. States she has a history of anxiety and is also noticed over the last 2-3 days that she is having a chest diffuse pressure sensation which is typical for anxiety and improves with Xanax administration. States her prior gastrologist ALLERGIC in the emergency department if she began having emesis with her constipation, which he states she has. Over the last 2 days she has had multiple episodes of nonbilious nonbloody emesis. Describes it as here what she ate, or a brown tinged emesis. No black. States she did have a small bowel movement this morning, and states that they have been more "ribbony"lately. Less flatus. History for colonoscopy. Denies shortness of breath. Denies fevers, chills, cough. His no urinary complaints. Presents for concern for bowel obstruction.She is having abdominal pain which is diffuse across her abdomen. States it feels mildly distended. - Related Data Home Medications Medication Instructions Recorded Confirmed Aspirin EC [Ecotrin Low Dose] 81 mg PO HS 08/08/15 10/26/21 Carvedilol [Coreg] 12.5 mg PO BID 08/08/15 10/26/21 Valsartan [Diovan] 160 mg PO DAILY 08/08/15 10/26/21 Insulin Glargine,Hum.rec.anlog 16 - 20 units SQ HS 10/26/21 10/26/21 [Lantus Solostar Pen] Rosuvastatin [Crestor] 20 mg PO HS 10/26/21 10/26/21 buPROPion HCL [buPROPion HCL Xl] 150 mg PO DAILY 10/26/21 10/26/21 Previous Rx's Medication Instructions Recorded ALPRAZolam [Xanax] 0.25 mg PO Q8H PRN #15 tab 05/01/17 Famotidine 20 mg PO DAILY 7 Days #7 tab 10/26/21 Mag Hydrox/Al Hydrox/Simeth 30 ml PO BID PRN #500 ml 10/26/21 [Maalox] Ondansetron Odt [Zofran Odt] 4 mg PO Q8HR PRN 3 Days #9 tab 10/26/21 Allergies Allergy/AdvReac Type Severity Reaction Status Date / Time Latex, Natural Rubber Allergy Rash/Hives Verified 10/26/21 11:30 codeine AdvReac Vomiting Verified 10/26/21 11:30 Review of Systems ROS Statement: Those systems with pertinent positive or pertinent negative responses have been documented in the HPI. Review of Systems: CONST: Denies fever EYES: Denies blurry vision ENT: Denies nasal congestion C/V: Endorses chest pressure RESP: Denies shortness of breath GI: Endorses abdominal pain : Denies dysuria SKIN: Denies rash. MSK: Denies joint pain. NEURO: Denies headache ROS Other: All systems not noted in ROS Statement are negative. Past Medical History Past Medical History: Cancer, GERD/Reflux, Hypertension, Pneumonia, Thyroid Disorder Additional Past Medical History / Comment(s): Pt states she has had ascities intermittently for past 1.5 years and was just recently admitted to [facility] for this problem, nonhodgkins lymphoma treated with chemo-she has "2 spots left lower lobe of my lung that have been unchanged for 3 yrs, UTIs, hypothyroid recently diagnosed, ETOH abuse with electrolyte imbalances/thrombocytopenia. History of Any Multi-Drug Resistant Organisms: None Reported Past Surgical History: Breast Surgery Additional Past Surgical History / Comment(s): Uterine ablation, bilateral breast reduction, colonoscopies x 4 and a couple polypectomies-benign, D&Cs as a teen for heavy bleeding. Past Anesthesia/Blood Transfusion Reactions: Postoperative Nausea & Vomiting (PONV) Additional Past Anesthesia/Blood Transfusion Reaction / Comment(s): Pt has rec eived blood as a teen with heavy vaginal bleeding. She does not recall a reaction. Past Psychological History: Anxiety, Depression Smoking Status: Current every day smoker Past Alcohol Use History: Daily Past Drug Use History: Marijuana - Past Family History Mother Family Medical History: AFIB, Fibromyalgia, Hyperlipidemia, Hypertension, Rhe umatoid Arthritis (RA) Additional Family Medical History / Comment(s): Mother is 80 yrs old. Father Family Medical History: Myocardial Infarction (NE) Additional Family Medical History / Comment(s): Father of a NE at the age of 50yrs. General Exam - General Exam Comments Initial Comments: General: Appears in mild to moderate distress secondary to abdominal discomfort. HEAD: Normal with no signs of head trauma. EYES: PERRLA, EOMI, conjunctiva normal, no discharge. ENT: Hearing grossly intact, normal oropharynx. RESPIRATORY: Clear breath sounds bilaterally. No wheezes, rales, or rhonchi. C/V: Tachycardic with a regular rhythm . S1 and S2 auscultated, no edema, peripheral pulses 2+ and intact throughout ABD: Abdomen is soft, mildly distended, nonspecific tenderness. No guarding. No peritoneal signs. No rebound tenderness. EXT: Normal range of motion, no obvious deformity SKIN: No rashes or lesions observed on exposed skin. NEURO: Alert and oriented 4. Limitations: no limitations Course Vital Signs 10/26/21 10/26/21 10/26/21 08:07 10:52 12:22 Temperature 97.7 F Pulse Rate 120 H 89 85 Respiratory 18 16 15 Rate Blood Pressure 142/83 129/60 138/56 O2 Sat by Pulse 95 97 96 Oximetry Medical Decision Making - Medical Decision Making Based on the patient's presentation and physical exam, she presents with multiple days of diffuse chest pressure relieved with xanex which is likely anxiety related but cannot rule out cardiac etiology considering her age as well as concern for intra-abdominal process causing possible bowel obstruction. No history of intra-abdominal surgeries. Does have history cancer. No recent colonoscopy. We will symptomatically to the patient, and obtain cardiopulmonary laboratory studies. Also obtain abdominal laboratory studies. We'll obtain a CT abd pelvis too. Patient was in agreement this plan. Vital signs within normal limits except for sinus tachycardia. EKG was significant for sinus tachycardia. No signs of acute ischemia.Chest x- ray showed no acute cardio helmet process. Abdomen pelvis CT revealed no obstruction but there are signs of enteritis. Was done without contrast due to her [place] eye. Ultrasound gallbladder showed no acute findings. There is fatty liver disease likely secondary to alcohol abuse. Laboratory studies are remarkable for mild leukocytosis of 14.7 which is likely reactive for secondary to enteritis. Patient is a elevated BUN/creatinine 28 and 1.69. Mildly elevated indices and alk phos. Troponin undetectable. Urine is contaminated catch with no signs of acute infection. On reevaluation, patient is feeling improved. I did discuss admission for observation versus discharge home. She states she is hungry. She would like to go home. I do believe this is reasonable. Strict return precautions were discussed. She did receive IV fluids for her LIZZETTE. She was in agreement with this plan. Vital signs are within normal limits. I will provide the patient with a prescription for Maalox, Zofran, famotidine. I instructed the patient to follow up with their PCP in the next 1-3 days. I explained that the patient should return to the emergency department if they experience any worsening symptoms. Strict return precautions were discussed with the patient. The patient expressed understanding of these instructions. I answered all questions that the patient had. The patient was discharged home in good condition with their prescriptions and follow up information. - Lab Data Result diagrams: 10/26/21 09:31 10/26/21 09:31 Lab Results 10/26/21 10/26/21 10/26/21 Range/Units 09:31 09:31 09:31 WBC 14.7 H (3.8-10.6) k/uL RBC 4.71 (3.80-5.40) m/uL Hgb 15.7 (11.4-16.0) gm/dL Hct 47.4 H (34.0-46.0) % MCV 100.6 H (80.0-100.0) fL MCH 33.3 (25.0-35.0) pg MCHC 33.1 (31.0-37.0) g/dL RDW 12.5 (11.5-15.5) % Plt Count 170 (150-450) k/uL MPV 7.7 Neutrophils % 80 % Lymphocytes % 10 % Monocytes % 6 % Eosinophils % 2 % Basophils % 1 % Neutrophils # 11.7 H (1.3-7.7) k/uL Lymphocytes # 1.5 (1.0-4.8) k/uL Monocytes # 0.9 (0-1.0) k/uL Eosinophils # 0.3 (0-0.7) k/uL Basophils # 0.1 (0-0.2) k/uL PT 11.1 (9.0-12.0) sec INR 1.0 (<1.2) APTT 24.1 (22.0-30.0) sec Sodium 131 L (137-145) mmol/L Potassium 3.7 (3.5-5.1) mmol/L Chloride 93 L (98-107) mmol/L Carbon Dioxide 23 (22-30) mmol/L Anion Gap 15 mmol/L BUN 28 H (7-17) mg/dL Creatinine 1.69 H (0.52-1.04) mg/dL Est GFR (CKD-EPI)AfAm 37 (>60 ml/min/1.73 sqM) Est GFR (CKD-EPI)NonAf 32 (>60 ml/min/1.73 sqM) Glucose 175 H (74-99) mg/dL Plasma Lactic Acid Giovanni (0.7-2.0) mmol/L Calcium 8.6 (8.4-10.2) mg/dL Total Bilirubin 1.3 (0.2-1.3) mg/dL AST 67 H (14-36) U/L ALT 38 H (4-34) U/L Alkaline Phosphatase 141 H (38-126) U/L Troponin I (0.000-0.034) ng/mL Total Protein 6.7 (6.3-8.2) g/dL Albumin 4.2 (3.5-5.0) g/dL Amylase 41 (30-110) U/L Lipase 67 (23-300) U/L Urine Color Urine Appearance (Clear) Urine pH (5.0-8.0) Ur Specific [place] (1.001-1.035) Urine Protein (Negative) Urine Glucose (UA) (Negative) Urine Ketones (Negative) Urine Blood (Negative) Urine Nitrite (Negative) Urine Bilirubin (Negative) Urine Urobilinogen (<2.0) mg/dL Ur Leukocyte Esterase (Negative) Urine RBC (0-5) /hpf Urine WBC (0-5) /hpf Urine WBC Clumps (None) /hpf Ur Squamous Epith Cells (0-4) /hpf Amorphous Sediment (None) /hpf Urine Bacteria (None) /hpf Hyaline Casts (0-2) /lpf Urine Mucus (None) /hpf 10/26/21 10/26/21 10/26/21 Range/Units 09:31 09:31 09:55 WBC (3.8-10.6) k/uL RBC (3.80-5.40) m/uL Hgb (11.4-16.0) gm/dL Hct (34.0-46.0) % MCV (80.0-100.0) fL MCH (25.0-35.0) pg MCHC (31.0-37.0) g/dL RDW (11.5-15.5) % Plt Count (150-450) k/uL MPV Neutrophils % % Lymphocytes % % Monocytes % % Eosinophils % % Basophils % % Neutrophils # (1.3-7.7) k/uL Lymphocytes # (1.0-4.8) k/uL Monocytes # (0-1.0) k/uL Eosinophils # (0-0.7) k/uL Basophils # (0-0.2) k/uL PT (9.0-12.0) sec INR (<1.2) APTT (22.0-30.0) sec Sodium (137-145) mmol/L Potassium (3.5-5.1) mmol/L Chloride (98-107) mmol/L Carbon Dioxide (22-30) mmol/L Anion Gap mmol/L BUN (7-17) mg/dL Creatinine (0.52-1.04) mg/dL Est GFR (CKD-EPI)AfAm (>60 ml/min/1.73 sqM) Est GFR (CKD-EPI)NonAf (>60 ml/min/1.73 sqM) Glucose (74-99) mg/dL Plasma Lactic Acid Giovanni 1.0 (0.7-2.0) mmol/L Calcium (8.4-10.2) mg/dL Total Bilirubin (0.2-1.3) mg/dL AST (14-36) U/L ALT (4-34) U/L Alkaline Phosphatase (38-126) U/L Troponin I <0.012 (0.000-0.034) ng/mL Total Protein (6.3-8.2) g/dL Albumin (3.5-5.0) g/dL Amylase (30-110) U/L Lipase (23-300) U/L Urine Color Yellow Urine Appearance Turbid H (Clear) Urine pH 6.0 (5.0-8.0) Ur Specific [place] 1.028 (1.001-1.035) Urine Protein 3+ H (Negative) Urine Glucose (UA) Negative (Negative) Urine Ketones 1+ H (Negative) Urine Blood Moderate H (Negative) Urine Nitrite Negative (Negative) Urine Bilirubin Negative (Negative) Urine Urobilinogen <2.0 (<2.0) mg/dL Ur Leukocyte Esterase Small H (Negative) Urine RBC 9 H (0-5) /hpf Urine WBC 63 H (0-5) /hpf Urine WBC Clumps Few H (None) /hpf Ur Squamous Epith Cells 17 H (0-4) /hpf Amorphous Sediment Occasional H (None) /hpf Urine Bacteria Moderate H (None) /hpf Hyaline Casts 41 H (0-2) /lpf Urine Mucus Few H (None) /hpf - EKG Data -: EKG Interpreted by Me EKG Comments: 12-lead Electrocardiogram Interpretation Note EKG was reviewed and interpreted by myself. 12-lead ECG performed at 0823 is interpreted by me as revealing sinus tachycardia at a rate of 115 beats per minute. [place] is normal. ID interval is 161 ms, QRS duration is 89 ms, QTc is 382 ms. There were no ST or T wave abnormalities to suggest myocardial ischemia or injury. R wave progression across the precordium was satisfactory. By my interpretation this EKG is non-diagnostic for acute ischemia. Disposition Clinical Impression: Enteritis, LIZZETTE (acute kidney injury), Dehydration, Nausea and vomiting Disposition: HOME SELF-CARE Condition: Good Instructions (If sedation given, give patient instructions): Enteritis (ED) Prescriptions: Famotidine 20 mg PO DAILY 7 Days #7 tab Mag Hydrox/Al Hydrox/Simeth [Maalox] 30 ml PO BID PRN #500 ml PRN Reason: Dyspepsia Ondansetron Odt [Zofran Odt] 4 mg PO Q8HR PRN 3 Days #9 tab PRN Reason: Nausea Is patient prescribed a controlled substance at d/c from ED?: No Referrals: Mary Ortiz DO [Primary Care Provider] - 1-2 days Time of Disposition: 12:00
[2021-10-26 09:30] LABS: Basophils # (A) 0.1 k/uL (0-0.2); Basophils % (A) 1 %; Eosinophils # (A) 0.3 k/uL (0-0.7); Eosinophils % (A) 2 %; HCT 47.4 % (34.0-46.0); HGB 15.7 gm/dL (11.4-16.0); Lymphocytes # (A) 1.5 k/uL (1.0-4.8); Lymphocytes % (A) 10 %; MCH 33.3 pg (25.0-35.0); MCHC 33.1 g/dL (31.0-37.0); MCV 100.6 fL (80.0-100.0); Mean Platelet Volume 7.7; Monocytes # (A) 0.9 k/uL (0-1.0); Monocytes % (A) 6 %; Neutrophils # (A) 11.7 k/uL (1.3-7.7); Neutrophils % (A) 80 %; Platelet Count 170 k/uL (150-450); RBC 4.71 m/uL (3.80-5.40); RDW 12.5 % (11.5-15.5); WBC 14.7 k/uL (3.8-10.6)
[2021-10-26 09:49] LABS: Partial Thromboplastin Time 24.1 sec (22.0-30.0); Prothrombin Time 11.1 sec (9.0-12.0)
[2021-10-26 09:51] LABS: Albumin 4.2 g/dL (3.5-5.0); Calcium 8.6 mg/dL (8.4-10.2); Potassium 3.7 mmol/L (3.5-5.1); Total Bilirubin 1.3 mg/dL (0.2-1.3); Total Protein 6.7 g/dL (6.3-8.2)
--- NOTE | 2021-10-26 10:10 | XR ---
EXAMINATION TYPE: XR chest 2V DATE OF EXAM: 10/26/2021 COMPARISON: 04/29/2017 HISTORY: Shortness of breath TECHNIQUE: Frontal and lateral views of the chest are obtained. FINDINGS: Scattered senescent parenchymal changes noted. Hyperinflation compatible with COPD. Increased density right lower lobe could reflect developing infiltrate versus overlying soft tissue. Correlate clinically. Lateral view appears clear. Heart size is stable. Mediastinal structures are stable and grossly unremarkable. No evidence for hilar prominence. Degenerative changes dorsal spine. IMPRESSION: 1. Increased density right lower lobe could reflect developing infiltrate versus overlying soft tissu e. Correlate clinically. Lateral view appears clear.
--- NOTE | 2021-10-26 10:17 | CT ---
EXAMINATION TYPE: CT abdomen pelvis wo con DATE OF EXAM: 10/26/2021 COMPARISON: 04/29/2017 HISTORY: Abdominal pain, possible bowel obstruction CT DLP: 1100.4 mGycm Examination of the solid and hollow viscera is limited given the lack of contrast. FINDINGS: LUNG BASES: No evidence for nodule. No evidence for infiltrate. LIVER/GB: The gallbladder is unremarkable. No space-occupying hepatic lesion. PANCREAS: No pancreatic mass identified. No inflammatory process seen. SPLEEN: No evidence for splenomegaly. No intrasplenic lesions seen. ADRENALS: No adrenal nodules identified. No evidence for thickening. KIDNEYS: No evidence for renal mass. No nephrolithiasis. No hydronephrosis. BOWEL: Appendix has a normal appearance. Mild distention proximal small bowel loops may reflect enter itis. The remaining small bowel and large bowel are of normal caliber. Contrast is seen within the ri ght hemicolon. Lymph nodes: No evidence for adenopathy greater than 1 cm. Abdominal aorta: Atheromatous changes seen. No evidence for aneurysm. Genital organs: No significant abnormality. Other: No significant Abnormality. IMPRESSION: 1. Correlate for small bowel enteritis.
[2021-10-26 10:53] LABS: Amorphous Sediment,Urine Occasional /hpf; Appearance,Urine Turbid (Clear); Bacteria,Urine Moderate /hpf; Bilirubin,Urine Negative (Negative); Blood,Urine Moderate (Negative); Color,Urine Yellow; Glucose,Urine (UA) Negative (Negative); Hyaline Casts,Urine 41 /lpf (0-2); Ketones,Urine 1+ (Negative); Leukocyte Esterase,Urine Small (Negative); Mucus,Urine Few /hpf; Nitrite,Urine Negative (Negative); Protein,Urine 3+ (Negative); RBC,Urine 9 /hpf (0-5); Specific Gravity,Urine 1.028 (1.001-1.035); Squamous Epithelial Cell,Urine 17 /hpf (0-4); Urobilinogen,Urine <2.0 mg/dL (<2.0); WBC,Urine 63 /hpf (0-5)
--- NOTE | 2021-10-26 11:35 | US ---
EXAMINATION TYPE: US gallbladder DATE OF EXAM: 10/26/2021 COMPARISON: NONE CLINICAL HISTORY: n/v, abd pain. TECHNIQUE: Multiple sonographic images of the right upper quadrant are obtained. FINDINGS: EXAM MEASUREMENTS: Liver Length: 15.6 cm Gallbladder Wall: 0.23 cm CBD: 0.23 cm Right Kidney: 11.6 x 5.0 x 5.0 cm NUTRITION PROGRAM INSTRUCTOR NOTES: Exam limited by overlying bowel gas Pancreas: Tail obscured by overlying bowel gas Liver: Increased attenuation Gallbladder: wnl Evidence for sonographic Barth's sign: No CBD: wnl Right Kidney: wnl IMPRESSION: 1. Fatty infiltration of liver. 2. Right upper quadrant ultrasound is otherwise unremarkable.
[2021-10-26 12:23] VITALS: BP 138/56; PULSE 85; RESP 15
== END 2021-10-26 12:23 | disposition home or self-care (01) ==
LOC: EC 08:01
DX: K52.9 Noninfective gastroenteritis and colitis, unspecified (principal); N17.9 Acute kidney failure, unspecified; E86.0 Dehydration; I10 Essential (primary) hypertension; E03.9 Hypothyroidism, unspecified; F17.200 Nicotine dependence, unspecified, uncomplicated; Z91.040 Latex allergy status; Z88.5 Allergy status to narcotic agent
CPT/HCPCS: 36415; 93005; 80053; 82150; 83605; 83690; 84484; 85025; 85610; 85730; 81001; 87086; 71046; 76705; 74176; 99285; 96374; 96375; 96361; J2270; J1200; J2405; C9113

== ENCOUNTER 2022-04-30 02:57 | Inpatient (IN) | payer BC ==
[2022-04-30] MEDS ORDERED: SODIUM CHLORIDE 0.9% 1,000 ML IV ONE (03:20)
[2022-04-30] MEDS ORDERED: ONDANSETRON 4 MG/2 ML VIAL IVP STA (03:20)
[2022-04-30 04:10] LABS: ALT 34 U/L (4-34); AST 80 U/L (14-36); African American GFR (CKD) >90 (>60 ml/min/1.73 sqM); Albumin 4.3 g/dL (3.5-5.0); Alkaline Phosphatase 152 U/L (38-126); Anion Gap 14 mmol/L; Blood Urea Nitrogen 8 mg/dL (7-17); Calcium 8.7 mg/dL (8.4-10.2); Carbon Dioxide 20 mmol/L (22-30); Chloride 85 mmol/L (98-107); Glucose 151 mg/dL (74-99); Lipase 100 U/L (23-300); Magnesium 1.2 mg/dL (1.6-2.3); Non-African American GFR(CKD) >90 (>60 ml/min/1.73 sqM); Potassium 4.3 mmol/L (3.5-5.1); Total Bilirubin 2.3 mg/dL (0.2-1.3); Total Protein 6.8 g/dL (6.3-8.2)
--- NOTE | 2022-04-30 04:14 | XR ---
EXAMINATION TYPE: XR chest 2V DATE OF EXAM: 04/30/2022 COMPARISON: 10/26/2021 HISTORY: 10/26/2021 TECHNIQUE: 2 views FINDINGS: Heart and mediastinum are normal. Lungs are clear. Diaphragm is normal. Bony thorax is inta ct. There are chest leads. IMPRESSION: No active cardiopulmonary disease. No change.
[2022-04-30 04:17] LABS: Sodium 119 mmol/L (137-145)
--- NOTE | 2022-04-30 04:54 | ED ---
General Adult HPI - General Chief complaint: Chest Pain Stated complaint: chest pain Time Seen by Provider: 04/30/22 03:12 Source: patient Mode of arrival: wheelchair Limitations: no limitations - History of Present Illness Initial comments: This is a 62-year-old female with a past medical history including anxiety, hypertension and diabetes presented to the emergency department for multiple complaints. The patient stated that over the last several days she has had a nausea, vomiting and diarrhea. The patient stated that she has pain all over her body and was having chest pain and palpitations. The patient stated that she did come to the emergency department tonight because of the palpitations that she continued to fail. The patient denied any oral intake over the last 2 days secondary to nausea and vomiting. The patient was anxious on arrival however denied any acute pain but did state that she had continued body aches. The patient denied any recent sick contacts and denied any fevers and chills. - Related Data Home Medications Medication Instructions Recorded Confirmed Aspirin EC [Ecotrin Low Dose] 81 mg PO HS 08/08/15 10/26/21 Carvedilol [Coreg] 12.5 mg PO BID 08/08/15 10/26/21 Valsartan [Diovan] 160 mg PO DAILY 08/08/15 10/26/21 Insulin Glargine,Hum.rec.anlog 16 - 20 units SQ HS 10/26/21 10/26/21 [Lantus Solostar Pen] Rosuvastatin [Crestor] 20 mg PO HS 10/26/21 10/26/21 buPROPion HCL [buPROPion HCL Xl] 150 mg PO DAILY 10/26/21 10/26/21 Previous Rx's Medication Instructions Recorded ALPRAZolam [Xanax] 0.25 mg PO Q8H PRN #15 tab 05/01/17 Famotidine 20 mg PO DAILY 7 Days #7 tab 10/26/21 Mag Hydrox/Al Hydrox/Simeth 30 ml PO BID PRN #500 ml 10/26/21 [Maalox] Ondansetron Odt [Zofran Odt] 4 mg PO Q8HR PRN 3 Days #9 tab 10/26/21 Allergies Allergy/AdvReac Type Severity Reaction Status Date / Time Latex, Natural Rubber Allergy Rash/Hives Verified 04/30/22 03:04 codeine AdvReac Vomiting Verified 04/30/22 03:04 Review of Systems ROS Statement: Those systems with pertinent positive or pertinent negative responses have been documented in the HPI. ROS Other: All systems not noted in ROS Statement are negative. Past Medical History Past Medical History: Cancer, GERD/Reflux, Hypertension, Pneumonia, Thyroid Disorder Additional Past Medical History / Comment(s): Pt states she has had ascities intermittently for past 1.5 years and was just recently admitted to [facility] for this problem, nonhodgkins lymphoma treated with chemo-she has "2 spots left lower lob e of my lung that have been unchanged for 3 yrs, UTIs, hypothyroid recently diagnosed, ETOH abuse with electrolyte imbalances/thrombocytopenia. History of Any Multi-Drug Resistant Organisms: None Reported Past Surgical History: Breast Surgery Additional Past Surgical History / Comment(s): Uterine ablation, bilateral breast reduction, colonoscopies x 4 and a couple polypectomies-benign, D&Cs as a teen for heavy bleeding. Past Anesthesia/Blood Transfusion Reactions: Postoperative Nausea & Vomiting (PONV) Additional Past Anesthesia/Blood Transfusion Reaction / Comment(s): Pt has received blood as a teen with heavy vaginal bleeding. She does not recall a reaction. Past Psychological History: Anxiety, Depression Smoking Status: Current every day smoker Past Alcohol Use History: Daily Past Drug Use History: Marijuana - Past Family History Mother Family Medical History: AFIB, Fibromyalgia, Hyperlipidemia, Hypertension, Rheumatoid Arthritis (RA) Additional Family Medical History / Comment(s): Mother is 80 yrs old. Father Family Medical History: Myocardial Infarction (MO) Additional Family Medical History / Comment(s): Father of a MO at the age of 50yrs. General Exam Limitations: no limitations General appearance: alert, in no apparent distress, anxious Head exam: Present: atraumatic, normocephalic, normal inspection Eye exam: Present: normal appearance, PERRL Pupils: Present: normal accommodation ENT exam: Present: mucous membranes dry Neck exam: Present: normal inspection, full ROM Respiratory exam: Present: normal lung sounds bilaterally Cardiovascular Exam: Present: normal rhythm, tachycardia GI/Abdominal exam: Present: soft, normal bowel sounds Extremities exam: Present: normal inspection, full ROM Back exam: Present: normal inspection, full ROM Neurological exam: Present: alert, oriented X3, CN II-XII intact Psychiatric exam: Present: anxious Skin exam: Present: warm, dry Course Vital Signs 04/30/22 04/30/22 03:05 05:54 Temperature 98.1 F Pulse Rate 110 H 111 H Respiratory 18 18 Rate Blood Pressure 169/112 153/62 O2 Sat by Pulse 96 96 Oximetry EKG Findings - EKG Comments: EKG Findings:: An EKG was obtained and was interpreted by myself showing a rate of 103, WI interval 164, QRS duration of 76 and QTC of 385. This EKG showed a sinus tachycardia with no ST segment elevation or depression noted. there was motion artifact secondary to patient movement. Medical Decision Making - Medical Decision Making Was pt. sent in by a medical professional or institution (GERALDINE Cruz, CASTING ROOM OPERATOR, urgent care, hospital, or fdc...) When possible be specific @ -No Did you speak to anyone other than the patient for history (EMS, parent, family, police, friend...)? What history was obtained from this source @ -No Did you review nursing and triage notes (agree or disagree)? Why? @ -I reviewed and agree with nursing and triage notes Were old charts reviewed (outside hosp., previous admission, EMS record, old EKG, old radiological studies, urgent care reports/EKG's, fdc records)? Report findings @ -No old charts were reviewed Differential Diagnosis (chest pain, altered mental status, abdominal pain women, abdominal pain men, vaginal bleeding, weakness, fever, dyspnea, syncope, headache, dizziness, GI bleed, back pain, seizure, CVA, palpatations, mental health)? @ -URI, ACS, anxiety EKG interpreted by me (3pts min.). @ -As above X-rays interpreted by me (1pt min.). @ -Chest x-ray was obtained and was interpreted by myself showing no active cardiopulmonary disease. CT interpreted by me (1pt min.). @ -None done U/S interpreted by me (1pt. min.). @ -None done What testing was considered but not performed or refused? (CT, X-rays, U/S, labs)? Why? @ -None What meds were considered but not given or refused? Why? @ -None Did you discuss the management of the patient with other professionals (professionals i.e. GERALDINE Cruz, CASTING ROOM OPERATOR, lab, RT, psych nurse, social worker psychiatric, social worker psychiatric, teacher, systems support officer, continuous pillowcase cutter)? Give summary @ -Yes, admitting physician Was smoking cessation discussed for >3mins.? @ -No Was critical care preformed (if so, how long)? @ -No Were there social determinants of health that impacted care today? How? (Homelessness, low income, unemployed, alcoholism, drug addiction, transportation, low edu. Level, literacy, decrease access to med. care, custodial, rehab)? @ -No Was there de-escalation of care discussed even if they declined (Discuss DNR or withdrawal of care, Hospice)? DNR status @ -No What co-morbidities impacted this encounter? (DM, HTN, Smoking, COPD, CAD, Canc er, CVA, ARF, Chemo, Hep., AIDS, mental health diagnosis, sleep apnea, morbid obesity)? @ -Hypertension, diabetes, anxiety Was patient admitted / discharged? Hospital course, mention meds given and route, prescriptions, significant lab abnormalities, going to OR and other pertinent info. @ -The patient was seen and evaluated in the emergency department. Physical exam, the patient was resting in bed mildly anxious without any further acute distress. Vital signs on admission did show tachycardia however the rest of the vital signs remained within normal limits. Laboratory workup, chest x-ray and EKG were obtained. Laboratory workup did show significant findings including hypernatremia at 119. The patient did receive 2 L of normal saline fluid in the emergency department. The remaining laboratory workup was within normal limits. Due to the patient's hyponatremia in the setting of nausea, vomiting and diarrhea and dehydration, the patient will be admitted for further workup and evaluation. The patient was agreeable to this. The patient was admitted in stable condition. Undiagnosed new problem with uncertain prognosis? @ -No Drug Therapy requiring intensive monitoring for toxicity (Heparin, Nitro, Insulin, Cardizem)? @ -No Were any procedures done? @ -No Diagnosis/symptom? @ -Dehydration and hyponatremia likely secondary to vomiting and diarrhea Acute, or Chronic, or Acute on Chronic? @ -Acute Uncomplicated (without systemic symptoms) or Complicated (systemic symptoms)? @ -Complicated Side effects of treatment? @ -No Exacerbation, Progression, or Severe Exacerbation? @ -No Poses a threat to life or bodily function? How? (Chest pain, [place], [place], pneumonia, PE, COPD, DKA, ARF, appy, cholecystitis, CVA, Diverticulitis, Homicidal, Suicidal, threat to staff... and all critical care pts) @ -Yes, worsening electrolyte abnormality can cause permanent damage and possible . - Lab Data Result diagrams: 04/30/22 05:15 04/30/22 05:15 Lab Results 04/30/22 04/30/22 04/30/22 Range/Units 03:30 03:30 03:50 Sodium 119 L* (137-145) mmol/L Potassium 4.3 (3.5-5.1) mmol/L Chloride 85 L (98-107) mmol/L Carbon Dioxide 20 L (22-30) mmol/L Anion Gap 14 mmol/L BUN 8 (7-17) mg/dL Creatinine 0.60 (0.52-1.04) mg/dL Est GFR (CKD-EPI)AfAm >90 (>60 ml/min/1.73 sqM) Est GFR (CKD-EPI)NonAf >90 (>60 ml/min/1.73 sqM) Glucose 151 H (74-99) mg/dL Calcium 8.7 (8.4-10.2) mg/dL Magnesium 1.2 L (1.6-2.3) mg/dL Total Bilirubin 2.3 H (0.2-1.3) mg/dL AST 80 H (14-36) U/L ALT 34 (4-34) U/L Alkaline Phosphatase 152 H (38-126) U/L Troponin I 0.013 (0.000-0.034) ng/mL Total Protein 6.8 (6.3-8.2) g/dL Albumin 4.3 (3.5-5.0) g/dL Lipase 100 (23-300) U/L Influenza Type A (PCR) Not Detected (Not Detectd) Influenza Type B (PCR) Not Detected (Not Detectd) RSV (PCR) Not Detected (Not Detectd) SARS-CoV-2 (PCR) Not Detected (Not Detectd) Disposition Clinical Impression: Nausea & vomiting, Diarrhea, Hyponatremia, Dehydration Disposition: ADMITTED IP TO THIS [facility] Condition: Stable Is patient prescribed a controlled substance at d/c from ED?: No Time of Disposition: 04:50 Decision to Admit Reason: Admit from EC Decision Date: 04/30/22 Decision Time: 04:50
[2022-04-30] MEDS ORDERED: ONDANSETRON 4 MG/2 ML VIAL IVP PRN (04:55)
[2022-04-30] MEDS ORDERED: NALOXONE 0.4 MG/ML 1 ML VIAL IV PRN (04:55)
[2022-04-30 05:42] LABS: African American GFR (CKD) >90 (>60 ml/min/1.73 sqM); Anion Gap 10 mmol/L; Blood Urea Nitrogen 8 mg/dL (7-17); Calcium 8.3 mg/dL (8.4-10.2); Carbon Dioxide 21 mmol/L (22-30); Chloride 89 mmol/L (98-107); Glucose 134 mg/dL (74-99); Non-African American GFR(CKD) >90 (>60 ml/min/1.73 sqM); Potassium 4.1 mmol/L (3.5-5.1); Sodium 120 mmol/L (137-145)
[2022-04-30 05:57] LABS: Basophils % (A) 0 %; Eosinophils # (A) 0.1 k/uL (0-0.7); Eosinophils % (A) 1 %; HCT 39.6 % (34.0-46.0); Lymphocytes # (A) 1.3 k/uL (1.0-4.8); Lymphocytes % (A) 12 %; MCH 33.3 pg (25.0-35.0); MCHC 35.4 g/dL (31.0-37.0); Mean Platelet Volume 7.7; Monocytes # (A) 0.5 k/uL (0-1.0); Monocytes % (A) 5 %; Neutrophils # (A) 8.4 k/uL (1.3-7.7); Neutrophils % (A) 81 %; Platelet Count 121 k/uL (150-450); RBC 4.21 m/uL (3.80-5.40); RDW 11.9 % (11.5-15.5); WBC 10.5 k/uL (3.8-10.6)
[2022-04-30 06:02] LABS: INR 1.1 (<1.2); Partial Thromboplastin Time 26.2 sec (22.0-30.0); Prothrombin Time 11.8 sec (9.0-12.0)
[2022-04-30] MEDS ORDERED: ALPRAZolam 0.5 MG TAB PO STA (06:09)
[2022-04-30] MEDS: SODIUM CHLORIDE 0.9% 1,000 ML IV SCH ×2 (06:50→14:00)
[2022-04-30 06:59] LABS: Glucose,Whole Blood 161 mg/dL (70-110)
[2022-04-30] MEDS: MAGNESIUM SULFATE-D5W PMX 1 GM in DEXTROSE/WATER 1 100ML.BAG IVPB SCH ×4 (08:13→12:03)
[2022-04-30 08:53] LABS: Appearance,Urine Clear (Clear); Bacteria,Urine Many /hpf; Bilirubin,Urine Negative (Negative); Blood,Urine Small (Negative); Color,Urine Light Yellow; Glucose,Urine (UA) Negative (Negative); Ketones,Urine 1+ (Negative); Leukocyte Esterase,Urine Negative (Negative); Nitrite,Urine Positive (Negative); Protein,Urine Negative (Negative); RBC,Urine <1 /hpf (0-5); Specific Gravity,Urine 1.005 (1.001-1.035); Urobilinogen,Urine <2.0 mg/dL (<2.0); WBC,Urine 1 /hpf (0-5)
[2022-04-30] MEDS: ALPRAZolam 0.5 MG TAB PO PRN ×2 (09:36→20:32)
[2022-04-30] MEDS: FAMOTIDINE 20 MG TAB PO SCH (09:36)
[2022-04-30] MEDS ORDERED: DEXTROSE 50% SYRINGE 50 ML IVP PRN ×2 (09:41)
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
[2022-04-30 10:55] LABS: African American GFR (CKD) >90 (>60 ml/min/1.73 sqM); Anion Gap 11 mmol/L; Blood Urea Nitrogen 8 mg/dL (7-17); Carbon Dioxide 21 mmol/L (22-30); Chloride 89 mmol/L (98-107); Glucose 134 mg/dL (74-99); Non-African American GFR(CKD) >90 (>60 ml/min/1.73 sqM); Sodium 121 mmol/L (137-145)
[2022-04-30] MEDS: carvediloL 12.5 MG TAB PO SCH ×2 (11:03→16:33)
[2022-04-30] MEDS: VALSARTAN 160 MG TAB PO SCH (11:04)
[2022-04-30 11:39] LABS: Glucose,Whole Blood 199 mg/dL (70-110)
[2022-04-30] MEDS: CYANOCOBALAMIN 500 MCG TAB PO SCH (11:39)
[2022-04-30] MEDS: INSULIN ASPART (NovoLOG) 100 UNIT/ML VIAL SQ SCH ×3 (12:03→20:26)
[2022-04-30] MEDS ORDERED: BENZOCAINE/MENTHOL LOZENG 1 EACH LOZENGE MUCOUS MEM PRN (12:37)
[2022-04-30] MEDS: GABAPENTIN 100 MG CAP PO PRN (12:51)
[2022-04-30 16:09] LABS: Glucose,Whole Blood 151 mg/dL (70-110)
[2022-04-30 19:23] LABS: African American GFR (CKD) >90 (>60 ml/min/1.73 sqM); Anion Gap 7 mmol/L; Blood Urea Nitrogen 6 mg/dL (7-17); Calcium 8.5 mg/dL (8.4-10.2); Carbon Dioxide 28 mmol/L (22-30); Chloride 94 mmol/L (98-107); Glucose 168 mg/dL (74-99); Magnesium 2.6 mg/dL (1.6-2.3); Non-African American GFR(CKD) >90 (>60 ml/min/1.73 sqM); Potassium 3.8 mmol/L (3.5-5.1); Sodium 129 mmol/L (137-145)
[2022-04-30] MEDS: ATORVASTATIN 40 MG TAB PO SCH (19:43)
[2022-04-30 20:16] LABS: Glucose,Whole Blood 162 mg/dL (70-110)
[2022-04-30] MEDS: INSULIN DETEMIR (LEVEMIR) 100 UNIT/ML SYR SQ SCH (20:26)
[2022-04-30] MEDS: ASPIRIN 81 MG PO SCH (20:31)
[2022-04-30] MEDS ORDERED: carvediloL 12.5 MG TAB PO SCH (21:00)
[2022-04-30] MEDS ORDERED: DEXTROSE 5% IN WATER 1,000 ML IV ONE (21:49)
[2022-05-01] MEDS: DEXTROSE 5% IN WATER 1,000 ML IV SCH ×2 (05:59→11:12)
[2022-05-01 06:23] LABS: Glucose,Whole Blood 195 mg/dL (70-110)
[2022-05-01] MEDS: carvediloL 12.5 MG TAB PO SCH ×2 (06:30→17:08)
[2022-05-01] MEDS: INSULIN ASPART (NovoLOG) 100 UNIT/ML VIAL SQ SCH ×4 (06:32→22:03)
[2022-05-01] MEDS: CHOLECALCIFEROL 25 MCG (1000 IU) TABLET PO SCH (08:58)
[2022-05-01] MEDS: CYANOCOBALAMIN 500 MCG TAB PO SCH (08:59)
[2022-05-01] MEDS: FOLIC ACID 1 MG TAB PO SCH (09:00)
[2022-05-01] MEDS: THIAMINE 100 MG TAB PO SCH (09:00)
[2022-05-01] MEDS ORDERED: VALSARTAN 160 MG TAB PO SCH (09:00)
[2022-05-01] MEDS: FAMOTIDINE 20 MG TAB PO SCH (09:00)
[2022-05-01] MEDS ORDERED: CYANOCOBALAMIN 5000 MCG PO SCH (09:00)
[2022-05-01] MEDS: VALSARTAN 160 MG TAB PO SCH (09:00)
[2022-05-01] MEDS: ALPRAZolam 0.5 MG TAB PO PRN ×3 (09:01→22:04)
[2022-05-01] MEDS: GABAPENTIN 100 MG CAP PO PRN ×2 (09:01→22:04)
[2022-05-01 09:12] LABS: African American GFR (CKD) >90 (>60 ml/min/1.73 sqM); Anion Gap 7 mmol/L; Blood Urea Nitrogen 4 mg/dL (7-17); Calcium 8.1 mg/dL (8.4-10.2); Carbon Dioxide 28 mmol/L (22-30); Chloride 95 mmol/L (98-107); Glucose 181 mg/dL (74-99); Magnesium 2.3 mg/dL (1.6-2.3); Non-African American GFR(CKD) >90 (>60 ml/min/1.73 sqM); Potassium 3.5 mmol/L (3.5-5.1); Sodium 130 mmol/L (137-145)
[2022-05-01] MEDS ORDERED: POTASSIUM CHLORIDE ER 20 MEQ TAB.ER PO STA (09:39)
--- NOTE | 2022-05-01 11:09 | P.PN ---
Subjective Progress Note Date: 05/01/22 Hospital Course: 62-year-old female with history of severe anxiety, hypertension, diabetes mellitus insulin-dependent, dyslipidemia presenting with 3 days of diarrhea, nausea, vomiting. In the ED, she was tachycardic to 110, blood pressure 169/112, saturating at 96% on room air, afebrile, respiratory rate 18. CBC showed platelet count 121, BMP showed sodium of 119, chloride 85, bicarb 20, anion gap 14, glucose 151, magnesium 1.2, total bili 2.3, AST 80, ALT 34, ALP 152. EKG shows sinus tachycardia. Chest x-ray showed no acute process. She was given 1 L of normal saline and IV magnesium in the ED. Patient being admitted for severe hyponatremia. Nephrology was consulted. Subjective: She is seen and examined at bedside. No acute events overnight. She denies any chest pain, shortness of breath, abdominal pain, nausea, vomiting, diarrhea, constipation, or urinary complaints. She claims that her bowel movements have decreased, and nausea is improved. She continues to have anxiety at times. Pertinent positives and negatives as discussed above, a complete review of systems was performed and all other systems are negative. Vitals Signs Reviewed. General: nontoxic, no distress, appears at stated age, morbidly obese Derm: warm, dry Head: atraumatic, normocephalic, symmetric Eyes: EOMI, no lid lag, anicteric sclera, pupils equal round reactive to light ENT: Nose and ears atraumatic Neck: No thyromegaly, supple Mouth: no lip lesion, mucus membranes moist Cardiovascular: S1S2 reg, no murmur, no edema, chest tenderness to palpation Lungs: clear to auscultation bilateral, no rhonchi, no rales, no wheeze, no accessory muscle use Abdominal: soft, nontender to palpation, no guarding, no appreciable organomegaly Ext: no gross muscle atrophy, muscle strength muscle strength 5 out of 5 in all 4 extremities, no contractures Neuro: CN II-XII grossly intact Psych: Alert, oriented, appropriate affect Data Reviewed Today: Pertinent Labs: Sodium 130, potassium 2.5, chloride 95, creatinine 0.59, TSH 2.41, magnesium 2.3, blood glucose ranged between 160 to 195 Assessment and Plan: Active: Severe hyponatremia, improving Severe anxiety Insulin-dependent diabetes mellitus with hyperglycemia Hyperbilirubinemia -Hyponatremia likely hypovolemic -Sodium levels improved with normal saline, sodium level increased quite rapidly, nephrology then switched fluids to D5 water at 1 50 mL an hour -Nephrology following -Repeat BMP and magnesium tomorrow -home bupropion restarted -On Xanax 0.5 mg 3 times a day when necessary -For insulin-dependent diabetes, patient takes glargine at night, on Levemir 10 units at night, low-dose sliding scale insulin -Hyperbilirubinemia also likely in the setting of acute dehydration Resolved: Hypomagnesemia High anion gap metabolic acidosis Sinus tachycardia Chronic: Daily alcohol use Nicotine dependence Hypertension Dyslipidemia DVT ppx: Lovenox Code status: Full code Anticipated discharge place: Likely home Anticipated discharge time: 1-2 days Objective - Vital Signs Vital signs: Vital Signs Temp 98.3 F 05/01/22 07:54 Pulse 82 05/01/22 10:07 Resp 16 05/01/22 10:59 BP 130/65 05/01/22 07:54 Pulse Ox 97 05/01/22 07:54 FiO2 Intake & Output 04/30/22 05/01/22 05/01/22 18:59 06:59 18:59 Intake Total 2130 118 Balance 2130 118 Intake: Oral 2130 118 Other: Voiding Method Toilet Toilet Toilet - Labs CBC & Chem 7: 04/30/22 05:15 05/01/22 08:08 Labs: Abnormal Lab Results - Last 24 Hours (Table) 04/30/22 04/30/22 04/30/22 Range/Units 11:33 11:33 11:33 Sodium 125 L (137-145) mmol/L Chloride (98-107) mmol/L BUN (7-17) mg/dL Glucose (74-99) mg/dL POC Glucose (mg/dL) (70-110) mg/dL Hemoglobin A1c 6.9 H (0.0-6.0) % Osmolality 267 L (280-301) mosm/kg Calcium (8.4-10.2) mg/dL Magnesium (1.6-2.3) mg/dL Ur Random Sodium (40-220) mmol/L 04/30/22 04/30/22 04/30/22 Range/Units 11:38 13:04 16:07 Sodium (137-145) mmol/L Chloride (98-107) mmol/L BUN (7-17) mg/dL Glucose (74-99) mg/dL POC Glucose (mg/dL) 199 H 151 H (70-110) mg/dL Hemoglobin A1c (0.0-6.0) % Osmolality (280-301) mosm/kg Calcium (8.4-10.2) mg/dL Magnesium (1.6-2.3) mg/dL Ur Random Sodium <20 L (40-220) mmol/L 04/30/22 04/30/22 05/01/22 Range/Units 18:50 20:15 00:38 Sodium 129 L 129 L (137-145) mmol/L Chloride 94 L (98-107) mmol/L BUN 6 L (7-17) mg/dL Glucose 168 H (74-99) mg/dL POC Glucose (mg/dL) 162 H (70-110) mg/dL Hemoglobin A1c (0.0-6.0) % Osmolality (280-301) mosm/kg Calcium (8.4-10.2) mg/dL Magnesium 2.6 H (1.6-2.3) mg/dL Ur Random Sodium (40-220) mmol/L 05/01/22 05/01/22 Range/Units 06:21 08:08 Sodium 130 L (137-145) mmol/L Chloride 95 L (98-107) mmol/L BUN 4 L (7-17) mg/dL Glucose 181 H (74-99) mg/dL POC Glucose (mg/dL) 195 H (70-110) mg/dL Hemoglobin A1c (0.0-6.0) % Osmolality (280-301) mosm/kg Calcium 8.1 L (8.4-10.2) mg/dL Magnesium (1.6-2.3) mg/dL Ur Random Sodium (40-220) mmol/L
[2022-05-01] MEDS: ENOXAPARIN 40 MG/0.4 ML SYRINGE SQ SCH (11:11)
[2022-05-01 11:26] LABS: Glucose,Whole Blood 179 mg/dL (70-110)
[2022-05-01] MEDS: buPROPion XL 150 MG TAB.ER.24H PO SCH (12:35)
--- NOTE | 2022-05-01 14:14 | P.PN ---
Subjective Patient is seen in follow-up for hyponatremia. Maintained on D5W prevent rapid correction of hyponatremia. Sodium level 128 as of this afternoon. Oral intake is improved. No vomiting or diarrhea. Vital signs are stable. General: No acute distress. HEENT: Head exam is unremarkable. LUNGS: No audible rhonchi or wheezes. HEART: Rate and Rhythm are regular. ABDOMEN: Nontender. EXTREMITITES: No edema. Objective - Vital Signs Vital signs: Vital Signs Temp 98.0 F 05/01/22 11:28 Pulse 82 05/01/22 11:28 Resp 18 05/01/22 11:28 BP 144/79 05/01/22 11:28 Pulse Ox 99 05/01/22 11:28 FiO2 Intake & Output 04/30/22 05/01/22 05/01/22 18:59 06:59 18:59 Intake Total 2130 118 Balance 2130 118 Intake: Oral 2130 118 Other: Voiding Method Toilet Toilet Toilet - Labs CBC & Chem 7: 04/30/22 05:15 05/01/22 12:57 Labs: Abnormal Lab Results - Last 24 Hours (Table) 04/30/22 04/30/22 04/30/22 Range/Units 11:33 13:04 16:07 Sodium (137-145) mmol/L Chloride (98-107) mmol/L BUN (7-17) mg/dL Glucose (74-99) mg/dL POC Glucose (mg/dL) 151 H (70-110) mg/dL Hemoglobin A1c 6.9 H (0.0-6.0) % Calcium (8.4-10.2) mg/dL Magnesium (1.6-2.3) mg/dL Ur Random Sodium <20 L (40-220) mmol/L 04/30/22 04/30/22 05/01/22 Range/Units 18:50 20:15 00:38 Sodium 129 L 129 L (137-145) mmol/L Chloride 94 L (98-107) mmol/L BUN 6 L (7-17) mg/dL Glucose 168 H (74-99) mg/dL POC Glucose (mg/dL) 162 H (70-110) mg/dL Hemoglobin A1c (0.0-6.0) % Calcium (8.4-10.2) mg/dL Magnesium 2.6 H (1.6-2.3) mg/dL Ur Random Sodium (40-220) mmol/L 05/01/22 05/01/22 05/01/22 Range/Units 06:21 08:08 11:25 Sodium 130 L (137-145) mmol/L Chloride 95 L (98-107) mmol/L BUN 4 L (7-17) mg/dL Glucose 181 H (74-99) mg/dL POC Glucose (mg/dL) 195 H 179 H (70-110) mg/dL Hemoglobin A1c (0.0-6.0) % Calcium 8.1 L (8.4-10.2) mg/dL Magnesium (1.6-2.3) mg/dL Ur Random Sodium (40-220) mmol/L 05/01/22 Range/Units 12:57 Sodium 128 L (137-145) mmol/L Chloride (98-107) mmol/L BUN (7-17) mg/dL Glucose (74-99) mg/dL POC Glucose (mg/dL) (70-110) mg/dL Hemoglobin A1c (0.0-6.0) % Calcium (8.4-10.2) mg/dL Magnesium (1.6-2.3) mg/dL Ur Random Sodium (40-220) mmol/L Assessment and Plan Plan: Assessment: 1. Hyponatremia. Component of hypovolemia from diarrhea. Also partially due to poor solute intake. Improved. On D5W to prevent rapid correction. Urine sodium less than 20. Urine osmolality 92. TSH normal. 2. Hypomagnesemia from GI losses. Replace. Improved. 3. Benign hypertension. Stable. 4. Anxiety. 5. Diarrhea. Improved. Plan: Hep-Lock IV fluids. Encourage oral intake. Follow for outpatient 1 week post discharge.
[2022-05-01 16:35] LABS: Glucose,Whole Blood 121 mg/dL (70-110)
[2022-05-01 20:55] LABS: Glucose,Whole Blood 152 mg/dL (70-110)
[2022-05-01] MEDS: ATORVASTATIN 40 MG TAB PO SCH (21:50)
[2022-05-01] MEDS: INSULIN DETEMIR (LEVEMIR) 100 UNIT/ML SYR SQ SCH ×2 (22:03→22:08)
[2022-05-01] MEDS: ASPIRIN 81 MG PO SCH (22:03)
[2022-05-02 06:24] LABS: Glucose,Whole Blood 145 mg/dL (70-110)
[2022-05-02] MEDS: INSULIN ASPART (NovoLOG) 100 UNIT/ML VIAL SQ SCH (06:41)
[2022-05-02] MEDS: carvediloL 12.5 MG TAB PO SCH (06:56)
[2022-05-02 08:10] LABS: African American GFR (CKD) >90 (>60 ml/min/1.73 sqM); Anion Gap 6 mmol/L; Blood Urea Nitrogen 5 mg/dL (7-17); Calcium 8.6 mg/dL (8.4-10.2); Carbon Dioxide 30 mmol/L (22-30); Chloride 97 mmol/L (98-107); Glucose 138 mg/dL (74-99); Magnesium 2.2 mg/dL (1.6-2.3); Non-African American GFR(CKD) >90 (>60 ml/min/1.73 sqM); Potassium 4.2 mmol/L (3.5-5.1); Sodium 133 mmol/L (137-145)
[2022-05-02] MEDS: CHOLECALCIFEROL 25 MCG (1000 IU) TABLET PO SCH (08:53)
[2022-05-02] MEDS: THIAMINE 100 MG TAB PO SCH (08:53)
[2022-05-02] MEDS: buPROPion XL 150 MG TAB.ER.24H PO SCH (08:53)
[2022-05-02] MEDS: ENOXAPARIN 40 MG/0.4 ML SYRINGE SQ SCH (08:53)
[2022-05-02] MEDS: FAMOTIDINE 20 MG TAB PO SCH (08:53)
[2022-05-02] MEDS: FOLIC ACID 1 MG TAB PO SCH (08:53)
[2022-05-02] MEDS: ALPRAZolam 0.5 MG TAB PO PRN (08:53)
[2022-05-02] MEDS: VALSARTAN 160 MG TAB PO SCH (08:54)
[2022-05-02] MEDS: CYANOCOBALAMIN 500 MCG TAB PO SCH (08:54)
[2022-05-02 08:59] VITALS: BP 135/61; PULSE 87; RESP 16; TEMP 97
--- NOTE | 2022-05-02 11:02 | P.DS ---
Providers Date of admission: 04/30/22 04:56 Expected date of discharge: 05/02/22 Attending physician: Justin Torres MD Consults: 04/30/22 07:10 Consult Physician Routine Consulting Provider: Emeterio Metz Consult Reason/Comments: Hyponatremia Do you want consulting provider notified?: Yes Primary care physician: Mary Ortiz Hospital Course: Discharge Diagnosis: Severe hyponatremia, improving Severe anxiety Insulin-dependent diabetes mellitus with hyperglycemia Hyperbilirubinemia Hypomagnesemia High anion gap metabolic acidosis Sinus tachycardia Chronic diarrhea Nausea and vomiting History of IBS Possible diabetic gastroparesis Daily alcohol use Nicotine dependence Hypertension Dyslipidemia Hospital Course: 62-year-old female with history of severe anxiety, hypertension, diabetes mellitus insulin-dependent, dyslipidemia presenting with 3 days of diarrhea, nausea, vomiting. In the ED, she was tachycardic to 110, blood pressure 169/112, saturating at 96% on room air, afebrile, respiratory rate 18. CBC showed platelet count 121, BMP showed sodium of 119, chloride 85, bicarb 20, anion gap 14, glucose 151, magnesium 1.2, total bili 2.3, AST 80, ALT 34, ALP 152. EKG shows sinus tachycardia. Chest x-ray showed no acute process. She was given 1 L of normal saline and IV magnesium in the ED. Patient being admitted for severe hyponatremia. Nephrology was consulted. Sodium improved with IV fluids. Likely cause of hyponatremia was hypovolemia as well as solute loss from diarrhea. Patient does have history of IBS. She may also have robb betic gastroparesis. She needs follow-up with endocrinology for gastric emptying study. She also needs close follow-up with her PCP as well as psychiatry. Patient seen and examined at bedside. Vital signs reviewed and stable. General: nontoxic, no distress, appears at stated age Derm: warm, dry Head: atraumatic, normocephalic, symmetric Eyes: EOMI, no lid lag, anicteric sclera Mouth: no lip lesion, mucus membranes moist Cardiovascular: S1S2 reg, no murmur Lungs: CTA bilateral, no rhonchi, no rales , no accessory muscle use Abdominal: soft, nontender to palpation, no guarding, no appreciable organomegaly Ext: no gross muscle atrophy, no edema, no contractures Neuro: CN II-XI grossly intact, no focal neuro deficits Psych: Alert, oriented, appropriate affect A total of 36 minutes of time were spent preparing this complex discharge summary. Patient was discharged on 05/02/22 at 10:24. Patient Condition at Discharge: Stable Plan - Discharge Summary Discharge Rx Participant: No New Discharge Prescriptions: New Dicyclomine [Bentyl] 10 mg PO TID #90 capsule Folic Acid 1 mg PO DAILY #60 tab Thiamine [Vitamin B-1] 100 mg PO DAILY #60 tab ALPRAZolam [Xanax] 0.5 mg PO TID PRN #9 tab PRN Reason: Anxiety Famotidine [Pepcid] 20 mg PO DAILY #60 tab Metoclopramide [Reglan] 5 mg PO AC-TID PRN #90 tab PRN Reason: Nausea Continue Aspirin EC [Ecotrin Low Dose] 81 mg PO HS Valsartan [Diovan] 160 mg PO DAILY Carvedilol [Coreg] 12.5 mg PO BID Insulin Glargine,Hum.rec.anlog [Lantus Solostar Pen] 16 - 20 units SQ HS Cholecalciferol [Vitamin D3 (25 Mcg = 1000 Iu)] 25 mcg PO DAILY buPROPion HCL [buPROPion HCL Xl] 150 mg PO DAILY Rosuvastatin [Crestor] 20 mg PO HS Gabapentin [Neurontin] 100 mg PO BID PRN PRN Reason: Pain Cyanocobalamin (Vitamin B-12) [Vitamin B-12] 5,000 mcg PO DAILY Discontinued ALPRAZolam [Xanax] 0.25 mg PO DAILY PRN PRN Reason: Anxiety Discharge Medication List Aspirin EC [Ecotrin Low Dose] 81 mg PO HS 08/08/15 [History] Carvedilol [Coreg] 12.5 mg PO BID 08/08/15 [History] Valsartan [Diovan] 160 mg PO DAILY 08/08/15 [History] Insulin Glargine,Hum.rec.anlog [Lantus Solostar Pen] 16 - 20 units SQ HS 10/26/21 [History] Rosuvastatin [Crestor] 20 mg PO HS 10/26/21 [History] buPROPion HCL [buPROPion HCL Xl] 150 mg PO DAILY 10/26/21 [History] Cholecalciferol [Vitamin D3 (25 Mcg = 1000 Iu)] 25 mcg PO DAILY 04/30/22 [History] Cyanocobalamin (Vitamin B-12) [Vitamin B-12] 5,000 mcg PO DAILY 04/30/22 [History] Gabapentin [Neurontin] 100 mg PO BID PRN 04/30/22 [History] ALPRAZolam [Xanax] 0.5 mg PO TID PRN #9 tab 05/02/22 [Rx] Dicyclomine [Bentyl] 10 mg PO TID #90 capsule 05/02/22 [Rx] Famotidine [Pepcid] 20 mg PO DAILY #60 tab 05/02/22 [Rx] Folic Acid 1 mg PO DAILY #60 tab 05/02/22 [Rx] Metoclopramide [Reglan] 5 mg PO AC-TID PRN #90 tab 05/02/22 [Rx] Thiamine [Vitamin B-1] 100 mg PO DAILY #60 tab 05/02/22 [Rx] Follow up Appointment(s)/Referral(s): Nahum Bustos MD [Medical Doctor] - 1 Week Mary Ortiz DO [Primary Care Provider] - 1-2 days Leola Encarnacion MD [STAFF PHYSICIAN] - 1 Week Patient Instructions/Handouts: Diabetic Gastroparesis (DC), Irritable Bowel Sy ndrome (DC), Hyponatremia (DC) Activity/Diet/Wound Care/Special Instructions: Please see your Senior Mechanical Development Engineer. You may need gastric emptying study. Also see your PCP, psychiatrist and GI for anxiety and IBS. Discharge Disposition: HOME SELF-CARE
--- NOTE | 2022-05-02 12:36 | P.PN ---
Subjective Patient is seen in follow-up for hyponatremia. Sodium level improved. Currently off IV fluids. Oral intake is improved. No vomiting but did have loose bowel movements overnight. Has history of irritable bowel. Vital signs are stable. General: No acute distress. HEENT: Head exam is unremarkable. LUNGS: No audible rhonchi or wheezes. HEART: Rate and Rhythm are regular. ABDOMEN: Nontender. EXTREMITITES: No edema. Objective - Vital Signs Vital signs: Vital Signs Temp 97 F L 05/02/22 08:00 Pulse 87 05/02/22 08:00 Resp 16 05/02/22 08:00 BP 135/61 05/02/22 08:00 Pulse Ox 96 05/02/22 08:00 FiO2 Intake & Output 05/01/22 05/02/22 05/02/22 18:59 06:59 18:59 Intake Total 236 Balance 236 Intake: Oral 236 Other: Voiding Method Toilet Toilet Toilet # Voids 1 - Labs CBC & Chem 7: 04/30/22 05:15 05/02/22 07:23 Labs: Abnormal Lab Results - Last 24 Hours (Table) 05/01/22 05/01/22 05/01/22 Range/Units 12:57 16:34 20:53 Sodium 128 L (137-145) mmol/L Chloride (98-107) mmol/L BUN (7-17) mg/dL Glucose (74-99) mg/dL POC Glucose (mg/dL) 121 H 152 H (70-110) mg/dL 05/02/22 05/02/22 Range/Units 06:23 07:23 Sodium 133 L (137-145) mmol/L Chloride 97 L (98-107) mmol/L BUN 5 L (7-17) mg/dL Glucose 138 H (74-99) mg/dL POC Glucose (mg/dL) 145 H (70-110) mg/dL Assessment and Plan Plan: Assessment: 1. Hyponatremia. Component of hypovolemia from diarrhea. Also partially due to poor solute intake. Improved. Sodium level 133 today. Urine sodium less than 20. Urine osmolality 92. TSH normal. 2. Hypomagnesemia from GI losses. Replaced. Improved. 3. Benign hypertension. Stable. 4. Anxiety. 5. Diarrhea. History of irritable bowel. Plan: Off IV fluids. Encourage oral intake. Advised to maintain fluid restriction of less than 50 ounces per day upon discharge. Follow for outpatient 1 week post discharge.
== END 2022-05-02 12:17 | disposition home or self-care (01) | DRG 641 ==
LOC: EC 02:57 → 3SCARD 04:56
PROVIDERS: ADMIT Internal Medicine; ATTEND Internal Medicine
DX: E87.1 Hypo-osmolality and hyponatremia (principal); Z68.41 Body mass index [BMI] 40.0-44.9, adult; C85.99 Non-Hodgkin lymphoma, unspecified, extranodal and solid organ sites; F41.9 Anxiety disorder, unspecified; E11.43 Type 2 diabetes mellitus with diabetic autonomic (poly)neuropathy; E11.65 Type 2 diabetes mellitus with hyperglycemia; K31.84 Gastroparesis; Z79.4 Long term (current) use of insulin; E83.42 Hypomagnesemia; E87.20 Acidosis, unspecified; K58.0 Irritable bowel syndrome with diarrhea; M06.9 Rheumatoid arthritis, unspecified; E66.9 Obesity, unspecified; E03.9 Hypothyroidism, unspecified; E80.6 Other disorders of bilirubin metabolism; I10 Essential (primary) hypertension; R00.0 Tachycardia, unspecified; E78.5 Hyperlipidemia, unspecified; Z20.822 Contact with and (suspected) exposure to COVID-19; E86.0 Dehydration; E86.1 Hypovolemia; E87.8 Other disorders of electrolyte and fluid balance, not elsewhere classified; F17.210 Nicotine dependence, cigarettes, uncomplicated; Z87.01 Personal history of pneumonia (recurrent); Z87.440 Personal history of urinary (tract) infections; Z86.010 Personal history of colon polyps; Z79.899 Other long term (current) drug therapy; Z82.49 Family history of ischemic heart disease and other diseases of the circulatory system; Z92.21 Personal history of antineoplastic chemotherapy; Z88.5 Allergy status to narcotic agent; Z91.041 Radiographic dye allergy status; Z79.82 Long term (current) use of aspirin
CPT/HCPCS: 36415; 71046; 80048; 80053; 81001; 83036; 83690; 83735; 83930; 83935; 84295; 84300; 84443; 84484; 85025; 85610; 85730; 87636; 93005; 96361; 96374; 99285

== ENCOUNTER → 2022-08-19 | Outpatient (CLI) | payer BC ==
--- NOTE | 2022-08-19 07:59 | US ---
EXAMINATION TYPE: US abdomen limited DATE OF EXAM: 08/19/2022 COMPARISON: NONE CLINICAL INDICATION: Female, 62 years old with history of R94.5 ABN LIVER FUNCTION; abn lft's TECHNIQUE: Multiple sonographic images of the right upper quadrant are obtained. FINDINGS: EXAM MEASUREMENTS: Liver Length: 17.3 cm Gallbladder Wall: 0.3 cm CBD: 0.9 cm Right Kidney: 10.9 x 4.6 x 4.9 cm TOOL PROCUREMENT COORDINATOR NOTES:large habitus and bowel gas limits eam Pancreas: wnl Liver: difficult to penetrate, fatty liver Gallbladder: wnl Evidence for sonographic Barth's sign: no CBD: slightly dilated with no obvious obsctruction seen Right Kidney: wnl IMPRESSION: 1. Hepatic steatosis. 2. Common bile duct is mildly dilated.
== END | disposition home or self-care (01) ==
LOC: RADUSWWP 06:59
PROVIDERS: ATTEND Family Medicine
DX: K76.0 Fatty (change of) liver, not elsewhere classified (principal); K83.8 Other specified diseases of biliary tract; R94.5 Abnormal results of liver function studies
CPT/HCPCS: 76705

== ENCOUNTER → 2022-12-16 | Outpatient (CLI) | payer BC ==
[2022-12-16 09:47] LABS: African American GFR (CKD) >90 (>60 ml/min/1.73 sqM); Blood Urea Nitrogen 5 mg/dL (7-17); Non-African American GFR(CKD) >90 (>60 ml/min/1.73 sqM)
--- NOTE | 2022-12-16 11:28 | CT ---
EXAMINATION TYPE: CT abdomen w con CT DLP: 1539.50 mGycm, Automated exposure control for dose reduction was used. DATE OF EXAM: 12/16/2022 10:56 AM COMPARISON: CT abdomen pelvis most recent from 10/26/2021. CLINICAL INDICATION:Female, 62 years old with history of R94.5 ABNORMAL RESULTS OF LIVER FUNCTION; El evated liver function TECHNIQUE: Axial CT of the ;CT abdomen w con;Sagittal and coronal reformats were created on a [employer] workstation. Contrast used:100 mL of Isovue 300 with IV Contrast, (none if empty) Oral contrast used: with Oral Contrast (none if empty) FINDINGS: LOWER CHEST: Unremarkable ABDOMEN LIVER: Diffusely hypoattenuating parenchyma. No focal masses. There may be a subtle nodular border th e cortex. GALLBLADDER AND BILE DUCTS: Unremarkable. PANCREAS: Unremarkable. SPLEEN: Unremarkable. ADRENAL GLANDS: Unremarkable. KIDNEYS AND URETERS: No evidence of hydronephrosis or renal calculus. The ureters are unremarkable. STOMACH AND BOWEL: No evidence of bowel obstruction. Scattered colonic diverticula. PERITONEUM/RETROPERITONEUM: No evidence of pneumoperitoneum or free fluid. VASCULATURE: No evidence of aortic aneurysm. The periumbilical vein appears recanalized with connecti on to a prominent vessel in the left lower abdomen partially visualized. MUSCULOSKELETAL: No acute osseous abnormalities LYMPH NODES: No gross evidence for lymphadenopathy. SOFT TISSUE/ABDOMINAL WALL: Fat-containing umbilical hernia. IMPRESSION: Hepatic steatosis without evidence for focal mass. There may be a subtle nodular border to the liver parenchyma with possible early recanalization of the paraumbilical vein suggesting portal hypertensio n. Correlate for cirrhosis.
== END | disposition home or self-care (01) ==
LOC: RADCTMAIN 08:20
PROVIDERS: ATTEND Family Medicine
DX: K76.0 Fatty (change of) liver, not elsewhere classified (principal); R94.5 Abnormal results of liver function studies; R79.9 Abnormal finding of blood chemistry, unspecified; R94.4 Abnormal results of kidney function studies
CPT/HCPCS: 82565; 84520; 74160; 36415; Q9967

== ENCOUNTER 2023-03-21 09:03 | Observation (INO) | payer BC ==
[2023-03-21 09:33] LABS: Glucose,Whole Blood 143 mg/dL (70-110)
--- NOTE | 2023-03-21 09:34 | ED ---
General Adult HPI - General Chief complaint: Chest Pain Stated complaint: NV, Chest Discomfort Time Seen by Provider: 03/21/23 09:05 Source: patient, RN notes reviewed, old records reviewed Mode of arrival: ambulatory Limitations: no limitations - History of Present Illness Initial comments: This is a 63-year-old female presents to the emergency department complaining having chills having nausea vomiting and some diarrhea. Patient states she also had some chest discomfort which she states has been ongoing for the last 2 weeks intermittently and it feels like a pressure and feels short of breath but she has severe anxiety and she has had a history of very low sodium in the past. Patient states when she took her time she had no fever. Patient denies headache patient is numbness weakness. Patient denies any back pain. Patient denies abdominal pain but she is very nauseous. Patient also admits to being extremely anxious she is she took none of her meds this morning including her insulin high blood pressure meds - Related Data Home Medications Medication Instructions Recorded Confirmed Aspirin EC [Ecotrin Low Dose] 81 mg PO DAILY 08/08/15 03/21/23 Carvedilol [Coreg] 12.5 mg PO BID 08/08/15 03/21/23 Valsartan [Diovan] 160 mg PO DAILY 08/08/15 03/21/23 Insulin Glargine,Hum.rec.anlog 19 - 23 units SQ DAILY 10/26/21 03/21/23 [Lantus Solostar Pen] Rosuvastatin [Crestor] 20 mg PO Q2D 10/26/21 03/21/23 Cholecalciferol [Vitamin D3 (25 25 mcg PO DAILY 04/30/22 03/21/23 Mcg = 1000 Iu)] Gabapentin [Neurontin] 100 mg PO BID 04/30/22 03/21/23 ALPRAZolam [Xanax] 0.5 mg PO BID PRN 03/21/23 03/21/23 DULoxetine HCL [Cymbalta] 20 mg PO DAILY 03/21/23 03/21/23 Dicyclomine [Bentyl] 10 mg PO TID PRN 03/21/23 03/21/23 Allergies Allergy/AdvReac Type Severity Reaction Status Date / Time Latex, Natural Rubber Allergy Rash/Hives Verified 03/21/23 11:18 codeine AdvReac Vomiting Verified 03/21/23 11:18 Review of Systems ROS Statement: Those systems with pertinent positive or pertinent negative responses have been documented in the HPI. ROS Other: All systems not noted in ROS Statement are negative. Past Medical History Past Medical History: Cancer, GERD/Reflux, Hypertension, Pneumonia, Thyroid Disorder Additional Past Medical History / Comment(s): Pt states she has had ascities intermittently for past 1.5 years and was just recently admitted to [facility] for this problem, nonhodgkins lymphoma treated with chemo-she has "2 spots left lower lobe of my lung that have been unchanged for 3 yrs, UTIs, hypothyroid recently diagnosed, ETOH abuse with electrolyte imbalances/thrombocytopenia. History of Any Multi-Drug Resistant Organisms: None Reported Past Surgical History: Breast Surgery Additional Past Surgical History / Comment(s): Uterine ablation, bilateral breast reduction, colonoscopies x 4 and a couple polypectomies-benign, D&Cs as a teen for heavy bleeding. Past Anesthesia/Blood Transfusion Reactions: Postoperative Nausea & Vomiting (PONV) Additional Past Anesthesia/Blood Transfusion Reaction / Comment(s): Pt has received blood as a teen with heavy vaginal bleeding. She does not recall a reaction. Past Psychological History: Anxiety, Depression Smoking Status: Current every day smoker Past Alcohol Use History: Daily Past Drug Use History: Marijuana - Past Family History Mother Family Medical History: AFIB, Fibromyalgia, Hyperlipidemia, Hypertension, Rheumatoid Arthritis (RA) Additional Family Medical History / Comment(s): Mother is 80 yrs old. Father Family Medical History: Myocardial Infarction (PR) Additional Family Medical History / Comment(s): Father of a PR at the age of 50yrs. General Exam - General Exam Comments Initial Comments: GENERAL: Patient is well-developed and well-nourished. Patient is nontoxic and well- hydrated and is in mild distress. ENT: Neck is soft and supple. No significant lymphadenopathy is noted. Oropharynx is clear. Moist mucous membranes. Neck has full range of motion without eliciting any pain. EYES: The sclera were anicteric and conjunctiva were pink and moist. Extraocular movements were intact and pupils were equal round and reactive to light. Eyelids were unremarkable. PULMONARY: Unlabored respirations. Good breath sounds bilaterally. No audible rales rhonchi or wheezing was noted. CARDIOVASCULAR: There is a regular rate and rhythm without any murmurs gallops or rubs. ABDOMEN: Soft and nontender with normal bowel sounds. SKIN: Skin is clear with no lesions or rashes and otherwise unremarkable. NEUROLOGIC: Patient is alert and oriented x3. Cranial nerves II through XII are grossly intact. Motor and sensory are also intact. Normal speech, volume and content. Symmetrical smile. MUSCULOSKELETAL: Normal extremities with adequate strength and full range of motion. LYMPHATICS: No significant lymphadenopathy is noted PSYCHIATRIC: Patient is very anxious Limitations: no limitations Course Vital Signs 03/21/23 03/21/23 03/21/23 09:09 09:11 10:02 Temperature 98.2 F Pulse Rate 98 68 78 Respiratory 22 20 16 Rate Blood Pressure 143/80 154/83 133/90 O2 Sat by Pulse 96 99 98 Oximetry 03/21/23 10:45 Temperature Pulse Rate 97 Respiratory 16 Rate Blood Pressure 144/86 O2 Sat by Pulse 98 Oximetry Medical Decision Making - Medical Decision Making EKG is interpreted by myself read EKG shows a sinus rhythm at 95 bpm parables 166 QRS is 85 QT interval 339 QTc is 392. Patient EKG shows no ST segment o vation or depression. Was pt. sent in by a medical professional or institution (, PA, RIVET HAMMER MACHINE OPERATOR, urgent care, hospital, or fdc...) When possible be specific @ -No Did you speak to anyone other than the patient for history (EMS, parent, family, police, friend...)? What history was obtained from this source @ -No Did you review nursing and triage notes (agree or disagree)? Why? @ -I reviewed and agree with nursing and triage notes Were old charts reviewed (outside hosp., previous admission, EMS record, old EKG, old radiological studies, urgent care reports/EKG's, fdc records)? Report findings @ -I reviewed old charts and old lab work on this patient Differential Diagnosis (chest pain, altered mental status, abdominal pain women, abdominal pain men, vaginal bleeding, weakness, fever, dyspnea, syncope, headache, dizziness, GI bleed, back pain, seizure, CVA, palpatations, mental health, musculoskeletal)? @ -Differential Chest Pain: Stable Angina, Unstable Angina, STEMI, NSTEMI Aortic Dissection, Pneumothorax, Musculoskeletal, Esophageal Spasm GERD, Cholecystitis, Pancreatitis, Zoster, this is not meant to be an all-inclusive list. EKG interpreted by me (3pts min.). @ -As above X-rays interpreted by me (1pt min.). @ -Chest x-ray shows no acute abnormality CT interpreted by me (1pt min.). @ -None done U/S interpreted by me (1pt. min.). @ -None done What testing was considered but not performed or refused? (CT, X-rays, U/S, labs)? Why? @ -None What meds were considered but not given or refused? Why? @ -None Did you discuss the management of the patient with other professionals (professionals i.e. , PA, RIVET HAMMER MACHINE OPERATOR, lab, RT, psych nurse, social media assistant, mix house tender, teacher, retirement officer, case loader operator)? Give summary @ -I spoke with sound physicians they agreed to admit the patient admit the patient wrote admitting orders Was smoking cessation discussed for >3mins.? @ -No Was critical care preformed (if so, how long)? @ -No Were there social determinants of health that impacted care today? How? (Homelessness, low income, unemployed, alcoholism, drug addiction, tr ansportation, low edu. Level, literacy, decrease access to med. care, alf, rehab)? @ -No Was there de-escalation of care discussed even if they declined (Discuss DNR or withdrawal of care, Hospice)? DNR status @ -No What co-morbidities impacted this encounter? (DM, HTN, Smoking, COPD, CAD, Cancer, CVA, ARF, Chemo, Hep., AIDS, mental health diagnosis, sleep apnea, morbid obesity)? @ -None Was patient admitted / discharged? Hospital course, mention meds given and route, prescriptions, significant lab abnormalities, going to OR and other pertinent info. @ -Patient is feeling considerably better. Patient did state that this chest pain had been on and off for 2 weeks and it was a very heavy pressure sensation as if someone was sitting on her chest but currently it is gone away. Patient stated she is no longer nauseated and the she feels more relaxed after the Ativan Undiagnosed new problem with uncertain prognosis? @ -No Drug Therapy requiring intensive monitoring for toxicity (Heparin, Nitro, Insulin, Cardizem)? @ -No Were any procedures done? @ -No Diagnosis/symptom? @ -Chest pain Acute, or Chronic, or Acute on Chronic? @ -Acute Uncomplicated (without systemic symptoms) or Complicated (systemic symptoms)? @ -Complicated Side effects of treatment? @ -No Exacerbation, Progression, or Severe Exacerbation? @ -No Poses a threat to life or bodily function? How? (Chest pain, USA, PR, pneumonia, PE, COPD, DKA, ARF, appy, cholecystitis, CVA, Diverticulitis, Homicidal, Suicidal, threat to staff... and all critical care pts) @ -Yes this could lead to PR and end organ dysfunction Diagnosis/symptom? @ -Gastroenteritis Acute, or Chronic, or Acute on Chronic? @ -Acute Uncomplicated (without systemic symptoms) or Complicated (systemic symptoms)? @ -Complicated Side effects of treatment? @ -None Exacerbation, Progression, or Severe Exacerbation] @ -No Poses a threat to life or bodily function? @ -No - Lab Data Result diagrams: 03/21/23 09:30 03/21/23 09:30 Lab Results 03/21/23 03/21/23 03/21/23 Range/Units 09:30 09:30 09:30 WBC 8.0 (3.8-10.6) k/uL RBC 3.85 (3.80-5.40) m/uL Hgb 13.6 (11.4-16.0) gm/dL Hct 39.1 (34.0-46.0) % MCV 101.8 H (80.0-100.0) fL MCH 35.4 H (25.0-35.0) pg MCHC 34.8 (31.0-37.0) g/dL RDW 12.9 (11.5-15.5) % Plt Count 99 L (150-450) k/uL MPV 7.6 Neutrophils % 71 % Lymphocytes % 16 % Monocytes % 7 % Eosinophils % 4 % Basophils % 1 % Neutrophils # 5.7 (1.3-7.7) k/uL Lymphocytes # 1.3 (1.0-4.8) k/uL Monocytes # 0.6 (0-1.0) k/uL Eosinophils # 0.3 (0-0.7) k/uL Basophils # 0.1 (0-0.2) k/uL Manual Slide Review Performed Macrocytosis Slight PT 12.1 (10.0-12.5) sec INR 1.1 (<1.2) APTT 26.3 (22.0-30.0) sec Sodium 128 L (137-145) mmol/L Potassium 4.4 (3.5-5.1) mmol/L Chloride 95 L (98-107) mmol/L Carbon Dioxide 22 (22-30) mmol/L Anion Gap 11 mmol/L BUN <2 L (7-17) mg/dL Creatinine 0.48 L (0.52-1.04) mg/dL Est GFR (CKD-EPI)AfAm >90 (>60 ml/min/1.73 sqM) Est GFR (CKD-EPI)NonAf >90 (>60 ml/min/1.73 sqM) Glucose 151 H (74-99) mg/dL POC Glucose (mg/dL) (70-110) mg/dL POC Glu Broach Trouble Shooter ID Calcium 9.1 (8.4-10.2) mg/dL Magnesium 1.5 L (1.6-2.3) mg/dL Total Bilirubin 1.6 H (0.2-1.3) mg/dL AST 162 H (14-36) U/L ALT 56 H (4-34) U/L Alkaline Phosphatase 218 H (38-126) U/L Troponin I (0.000-0.034) ng/mL Total Protein 7.1 (6.3-8.2) g/dL Albumin 4.1 (3.5-5.0) g/dL Lipase 85 (23-300) U/L 03/21/23 03/21/23 Range/Units 09:30 09:30 WBC (3.8-10.6) k/uL RBC (3.80-5.40) m/uL Hgb (11.4-16.0) gm/dL Hct (34.0-46.0) % MCV (80.0-100.0) fL MCH (25.0-35.0) pg MCHC (31.0-37.0) g/dL RDW (11.5-15.5) % Plt Count (150-450) k/uL MPV Neutrophils % % Lymphocytes % % Monocytes % % Eosinophils % % Basophils % % Neutrophils # (1.3-7.7) k/uL Lymphocytes # (1.0-4.8) k/uL Monocytes # (0-1.0) k/uL Eosinophils # (0-0.7) k/uL Basophils # (0-0.2) k/uL Manual Slide Review Macrocytosis PT (10.0-12.5) sec INR (<1.2) APTT (22.0-30.0) sec Sodium (137-145) mmol/L Potassium (3.5-5.1) mmol/L Chloride (98-107) mmol/L Carbon Dioxide (22-30) mmol/L Anion Gap mmol/L BUN (7-17) mg/dL Creatinine (0.52-1.04) mg/dL Est GFR (CKD-EPI)AfAm (>60 ml/min/1.73 sqM) Est GFR (CKD-EPI)NonAf (>60 ml/min/1.73 sqM) Glucose (74-99) mg/dL POC Glucose (mg/dL) 143 H (70-110) mg/dL POC Glu Broach Trouble Shooter ID Deng, Get Calcium (8.4-10.2) mg/dL Magnesium (1.6-2.3) mg/dL Total Bilirubin (0.2-1.3) mg/dL AST (14-36) U/L ALT (4-34) U/L Alkaline Phosphatase (38-126) U/L Troponin I <0.012 (0.000-0.034) ng/mL Total Protein (6.3-8.2) g/dL Albumin (3.5-5.0) g/dL Lipase (23-300) U/L Disposition Clinical Impression: Chest pain, Gastroenteritis, Anxiety Disposition: ADMITTED IP TO THIS [facility] Referrals: Mary Ortiz DO [Primary Care Provider] - 1-2 days Time of Disposition: 12:51
[2023-03-21] MEDS: SODIUM CHLORIDE 0.9% 2,000 ML IV ONE (09:36)
[2023-03-21] MEDS: LORazepam 2 MG/ML INJ IV STA (09:36)
[2023-03-21] MEDS: ONDANSETRON 4 MG/2 ML VIAL IVP STA (09:36)
[2023-03-21 09:51] LABS: ALT 56 U/L (4-34); AST 162 U/L (14-36); African American GFR (CKD) >90 (>60 ml/min/1.73 sqM); Albumin 4.1 g/dL (3.5-5.0); Alkaline Phosphatase 218 U/L (38-126); Anion Gap 11 mmol/L; Blood Urea Nitrogen <2 mg/dL (7-17); Calcium 9.1 mg/dL (8.4-10.2); Carbon Dioxide 22 mmol/L (22-30); Chloride 95 mmol/L (98-107); Glucose 151 mg/dL (74-99); Lipase 85 U/L (23-300); Magnesium 1.5 mg/dL (1.6-2.3); Non-African American GFR(CKD) >90 (>60 ml/min/1.73 sqM); Potassium 4.4 mmol/L (3.5-5.1); Sodium 128 mmol/L (137-145); Total Bilirubin 1.6 mg/dL (0.2-1.3); Total Protein 7.1 g/dL (6.3-8.2)
[2023-03-21 10:02] LABS: Basophils # (A) 0.1 k/uL (0-0.2); Basophils % (A) 1 %; Eosinophils # (A) 0.3 k/uL (0-0.7); Eosinophils % (A) 4 %; HCT 39.1 % (34.0-46.0); HGB 13.6 gm/dL (11.4-16.0); INR 1.1 (<1.2); Lymphocytes # (A) 1.3 k/uL (1.0-4.8); Lymphocytes % (A) 16 %; MCH 35.4 pg (25.0-35.0); MCHC 34.8 g/dL (31.0-37.0); MCV 101.8 fL (80.0-100.0); Macrocytosis Slight; Mean Platelet Volume 7.6; Monocytes # (A) 0.6 k/uL (0-1.0); Monocytes % (A) 7 %; Neutrophils # (A) 5.7 k/uL (1.3-7.7); Neutrophils % (A) 71 %; Partial Thromboplastin Time 26.3 sec (22.0-30.0); Prothrombin Time 12.1 sec (10.0-12.5); RBC 3.85 m/uL (3.80-5.40); RDW 12.9 % (11.5-15.5)
--- NOTE | 2023-03-21 10:25 | XR ---
EXAMINATION TYPE: XR chest 2V DATE OF EXAM: 03/21/2023 COMPARISON: 04/30/2022 HISTORY: Shortness of breath TECHNIQUE: Frontal and lateral views of the chest are obtained. FINDINGS: Scattered senescent parenchymal changes noted. Hyperinflation compatible with COPD. No evidence for infiltrate. No evidence for atelectasis. Heart size is stable. Mediastinal structures are stable and grossly unremarkable. No evidence for hilar prominence. Degenerative changes dorsal spine. IMPRESSION: 1. No evidence for acute pulmonary disease.
[2023-03-21] MEDS: MAGNESIUM SULFATE-D5W PMX 1 GM in DEXTROSE/WATER 1 100ML.BAG IVPB ONE (10:42)
[2023-03-21 10:48] LABS: Platelet Count 99 k/uL (150-450)
[2023-03-21] MEDS ORDERED: NITROGLYCERIN SL TABS 0.4 MG TAB SUBLINGUAL PRN (13:16)
[2023-03-21] MEDS: ASPIRIN 81 MG PO STA (13:42)
[2023-03-21] MEDS ORDERED: DICYCLOMINE 10 MG CAP PO PRN (15:38)
[2023-03-21] MEDS ORDERED: LORazepam 2 MG/ML INJ IV PRN ×3 (16:17)
--- NOTE | 2023-03-21 16:19 | P.HPIM ---
History of Present Illness H&P Date: 03/21/23 Chief Complaint: Chest pain 63-year-old woman with medical history of alcohol abuse, anxiety on benzodiazepine, hypertension, hyperlipidemia presented for evaluation of chest pain. Patient says that for the last 2 weeks she started to feel generally weak/fatigued and noticed intermittent chest pain. Patient says that the pain is pressure-like, happens when she is at rest and sometimes breaks out into sweats. She notes that this pain is not exacerbated on exertion. She says that typically she rubs her chest when she has the symptoms and this improves her pain. She denies palpitations associated with this chest pain. She does report some dyspnea associated with this chest pain. Patient has been drinking at least 3 to 4 glasses of wine daily since she retired 20 years ago, and in addition has been taking benzodiazepines regularly at a dose of 0.5 mg 3 times d aily in order to deal with anxiety/panic attacks. She says that she believes that her chest pain is associated with her anxiety. She denies fevers, chills, nausea, vomiting. In the emergency room, patient was afebrile, 148/75, heart rate 96, 97% on 2 L nasal cannula. CBC demonstrates elevated MCV of 101.8, low platelets of 99. Sodium is 128, BUN is less than 2, creatinine is 0.48, magnesium is 1.5. BMI is 41.6. Liver function test show total bilirubin of 1.6, AST of 162, ALT of 56, alkaline phosphatase of 218. Lipase was 85. Troponin is less than 0.012 then trended to less than 0.012 after repeat check. Coags were unremarkable. EKG demonstrates normal sinus rhythm with low voltage, normal axis, no evidence of ischemia. Chest x-ray does demonstrate cardiomegaly with some mild pulmonary vascular congestion, however, this could be overestimated due to poor exposure. All Systems reviewed and pertinent positives and negatives noted in HPI, all other symptoms are negative Gen: in no apparent distress, resting comfortably in bed Eyes: PERRL, no scleral injection or icterus HENT: normocephalic, atraumatic, good hearing acuity, moist mucous membranes Neck: no tracheal deviation, full range of motion Resp: good air exchange, breathing comfortably with no accessory muscle use, no tactile fremitus CVS: good distal perfusion x 4, no pitting edema GI: soft, NTTP, ND, no hepatosplenomegaly : no suprapubic tenderness, no CVAT, barrett catheter not present MSK: no clubbing, no cyanosis, no noted contractures of extremities Skin: no noted rashes, petechiae; temperature of skin is appropriate Neuro: moving all extremities without signs of weakness, CN II-XII intact Psych: cooperative, euthymic mood, insight and judgment intact Labs and images as above Assessment/plan: Chest pain, atypical Anxiety/panic attacks -Admit to observation -Cardiology was consulted -Trend troponins -Aspirin, statin; statin was increased to daily dosing -Resume 0.5 mg 3 times daily of Xanax as needed Alcohol dependence with withdrawal Thrombocytopenia -[facility] protocol -Ativan as needed -Thiamine, folate, multivitamin Hyponatremia, hypovolemic -IV fluids -Repeat basic metabolic panel in the morning Hypertension Hyperlipidemia -Home medications reviewed and reconciled Patient is full code DVT prophylaxis with enoxaparin Past Medical History Past Medical History: Cancer, GERD/Reflux, Hypertension, Pneumonia, Thyroid Disorder Additional Past Medical History / Comment(s): Pt states she has had ascities intermittently for past 1.5 years and was just recently admitted to [facility] for this problem, nonhodgkins lymphoma treated with chemo-she has "2 spots left lower lobe of my lung that have been unchanged for 3 yrs, UTIs, hypothyroid recently diagnosed, ETOH abuse with electrolyte imbalances/thrombocytopenia. History of Any Multi-Drug Resistant Organisms: None Reported Past Surgical History: Breast Surgery Additional Past Surgical History / Comment(s): Uterine ablation, bilateral breast reduction, colonoscopies x 4 and a couple polypectomies-benign, D&Cs as a teen for heavy bleeding. Past Anesthesia/Blood Transfusion Reactions: Postoperative Nausea & Vomiting (PONV) Additional Past Anesthesia/Blood Transfusion Reaction / Comment(s): Pt has received blood as a teen with heavy vaginal bleeding. She does not recall a reaction. Past Psychological History: Anxiety, Depression Smoking Status: Current every day smoker Past Alcohol Use History: Daily Past Drug Use History: Marijuana - Past Family History Mother Family Medical History: AFIB, Fibromyalgia, Hyperlipidemia, Hypertension, Rheumatoid Arthritis (RA) Additional Family Medical History / Comment(s): Mother is 80 yrs old. Father Family Medical History: Myocardial Infarction (MA) Additional Family Medical History / Comment(s): Father of a MA at the age of 50yrs. Medications and Allergies Home Medications Medication Instructions Recorded Confirmed Type Aspirin EC [Ecotrin Low Dose] 81 mg PO DAILY 08/08/15 03/21/23 History Carvedilol [Coreg] 12.5 mg PO BID 08/08/15 03/21/23 History Valsartan [Diovan] 160 mg PO DAILY 08/08/15 03/21/23 History Insulin Glargine,Hum.rec.anlog 19 - 23 units SQ DAILY 10/26/21 03/21/23 History [Lantus Solostar Pen] Rosuvastatin [Crestor] 20 mg PO Q2D 10/26/21 03/21/23 History Cholecalciferol [Vitamin D3 (25 25 mcg PO DAILY 04/30/22 03/21/23 History Mcg = 1000 Iu)] Gabapentin [Neurontin] 100 mg PO BID 04/30/22 03/21/23 History ALPRAZolam [Xanax] 0.5 mg PO BID PRN 03/21/23 03/21/23 History DULoxetine HCL [Cymbalta] 20 mg PO DAILY 03/21/23 03/21/23 History Dicyclomine [Bentyl] 10 mg PO TID PRN 03/21/23 03/21/23 History Allergies Allergy/AdvReac Type Severity Reaction Status Date / Time Latex, Natural Rubber Allergy Rash/Hives Verified 03/21/23 11:18 codeine AdvReac Vomiting Verified 03/21/23 11:18 Physical Exam Osteopathic Statement: *. No significant issues noted on an osteopathic structural exam other than those noted in the History and Physical/Consult. Vitals: Vital Signs Temp Pulse Resp BP Pulse Ox 03/21/23 15:36 98.7 F 03/21/23 15:00 90 18 97 03/21/23 14:00 95 17 147/82 96 03/21/23 13:00 93 20 03/21/23 12:00 96 21 148/75 97 03/21/23 11:00 99 11 L 144/86 99 03/21/23 10:45 97 16 144/86 98 03/21/23 10:02 78 16 133/90 98 03/21/23 10:00 86 15 154/83 97 03/21/23 09:24 92 13 03/21/23 09:11 68 20 154/83 99 03/21/23 09:09 98.2 F 98 22 143/80 96 Intake and Output 03/21/23 03/21/23 03/21/23 06:59 14:59 22:59 Other: Weight 99.79 kg Results CBC & Chem 7: 03/21/23 09:30 03/21/23 09:30 Labs: Abnormal Lab Results - Last 24 Hours (Table) 03/21/23 03/21/23 03/21/23 Range/Units 09:30 09:30 09:30 MCV 101.8 H (80.0-100.0) fL MCH 35.4 H (25.0-35.0) pg Plt Count 99 L (150-450) k/uL Sodium 128 L (137-145) mmol/L Chloride 95 L (98-107) mmol/L BUN <2 L (7-17) mg/dL Creatinine 0.48 L (0.52-1.04) mg/dL Glucose 151 H (74-99) mg/dL POC Glucose (mg/dL) 143 H (70-110) mg/dL Magnesium 1.5 L (1.6-2.3) mg/dL Total Bilirubin 1.6 H (0.2-1.3) mg/dL AST 162 H (14-36) U/L ALT 56 H (4-34) U/L Alkaline Phosphatase 218 H (38-126) U/L
[2023-03-21] MEDS: ALPRAZolam 0.5 MG TAB PO PRN (17:00)
[2023-03-21] MEDS: carvediloL 12.5 MG TAB PO SCH (17:00)
[2023-03-21 19:41] VITALS: TEMP 98
[2023-03-21] MEDS: NITROGLYCERIN OINT 1 INCH/GM PACKET TOPICAL SCH (20:13)
[2023-03-21] MEDS: SODIUM CHLORIDE 0.9% 1,000 ML IV SCH (20:13)
[2023-03-21] MEDS: GABAPENTIN 100 MG CAP PO SCH (20:39)
[2023-03-22 05:53] LABS: Glucose,Whole Blood 125 mg/dL (70-110)
[2023-03-22] MEDS: INSULIN DETEMIR (LEVEMIR) 100 UNIT/ML SYR SQ SCH (05:56)
[2023-03-22] MEDS: MULTIVITAMINS, THERA 1 EACH TAB PO SCH (08:20)
[2023-03-22] MEDS: ASPIRIN 81 MG PO SCH (08:20)
[2023-03-22] MEDS: ATORVASTATIN 40 MG TAB PO SCH (08:20)
[2023-03-22] MEDS: VALSARTAN 160 MG TAB PO SCH (08:20)
[2023-03-22] MEDS: FOLIC ACID 1 MG TAB PO SCH (08:20)
[2023-03-22] MEDS: THIAMINE 100 MG TAB PO SCH (08:21)
[2023-03-22] MEDS: DULoxetine HCL 20 MG CAPSULE.DR PO SCH (08:21)
[2023-03-22] MEDS: ENOXAPARIN 40 MG/0.4 ML SYRINGE SQ SCH (08:22)
[2023-03-22] MEDS: CHOLECALCIFEROL 25 MCG (1000 IU) TABLET PO SCH (08:22)
[2023-03-22] MEDS ORDERED: ATORVASTATIN 40 MG TAB PO SCH (09:00)
[2023-03-22] MEDS ORDERED: ASPIRIN 325 MG TAB PO SCH (09:00)
[2023-03-22 11:54] LABS: ALT 45 U/L (8-44); AST 100 U/L (13-35); Albumin 3.5 g/dL (3.8-4.9); Albumin/Globulin Ratio 1.59 Ratio (1.60-3.17); Alkaline Phosphatase 181 U/L (41-126); BUN/Creat Ratio <5.83 Ratio (12.00-20.00); Bilirubin, Conjugated 0.73 mg/dL (0.20-0.40); Bilirubin,Unconjugated 0.77 mg/dL (0.20-1.00); Blood Urea Nitrogen <3.5 mg/dL (9.0-27.0); Calcium 8.9 mg/dL (8.7-10.3); Carbon Dioxide 24.4 mmol/L (21.6-31.8); Chloride 99 mmol/L (96-109); Chol/HDL Ratio 3.19 Ratio; Globulin 2.2 g/dL (1.6-3.3); Glucose 124 mg/dL (70-110); LDL Cholesterol,Calculated 113.5 mg/dL (0.0-131.0); Magnesium 1.8 mg/dL (1.5-2.4); Potassium 4.1 mmol/L (3.5-5.5); Sodium 135 mmol/L (135-145); Total Bilirubin 1.5 mg/dL (0.3-1.2); Total Protein 5.7 g/dL (6.2-8.2)
[2023-03-22 12:21] LABS: Glucose,Whole Blood 191 mg/dL (70-110)
[2023-03-22 12:33] LABS: Basophils # (A) 0.04 X 10*3/uL (0.00-0.10); Basophils % (A) 0.9 %; Eosinophils # (A) 0.14 X 10*3/uL (0.04-0.35); Eosinophils % (A) 3.2 %; HCT 34.1 % (37.2-46.3); HGB 11.7 g/dL (12.0-15.0); Immature Platelet Fraction 4.3 % (1.1-6.1); Lymphocytes # (A) 1.01 X 10*3/uL (0.90-5.00); Lymphocytes % (A) 22.9 %; MCH 35.5 pg (27.0-32.0); MCHC 34.3 g/dL (32.0-37.0); MCV 103.3 FL (80.0-97.0); Mean Platelet Volume 10.4 FL (9.5-12.2); Monocytes % (A) 13.6 %; NRBC Per 100 WBC 0 X 10*3/uL (0.00-0.01); Neutrophils # (A) 2.61 X 10*3/uL (1.80-7.70); Neutrophils % (A) 59.2 %; Platelet Count 84 X 10*3/uL (140-440); RBC Morphology Normal (Normal); RDW 13.5 % (11.5-14.5); WBC 4.41 X 10*3/uL (4.50-10.00)
[2023-03-22 15:16] VITALS: BP 124/68; PULSE 84; RESP 16
[2023-03-22 16:05] LABS: Glucose,Whole Blood 174 mg/dL (70-110)
--- NOTE | 2023-03-22 17:04 | P.DS ---
Providers Date of admission: 03/21/23 13:17 Expected date of discharge: 03/22/23 Attending physician: Jamie Ribera MD Consults: 03/21/23 13:16 Consult Physician Urgent Consulting Provider: [facility] Consult Reason/Comments: Chest pain Do you want consulting provider notified?: Yes Primary care physician: Mary Ortiz Hospital Course: Chest pain, atypical Anxiety/panic attacks Alcohol dependence with withdrawal Thrombocytopenia Hyponatremia, hypovolemic Hypertension Hyperlipidemia Hospital Course: 63-year-old woman with medical history of alcohol abuse, anxiety on benzodiazepine, hypertension, hyperlipidemia presented for evaluation of chest pain. In the emergency room, patient was afebrile, 148/75, heart rate 96, 97% on 2 L nasal cannula. CBC demonstrates elevated MCV of 101.8, low platelets of 99. Sodium is 128, BUN is less than 2, creatinine is 0.48, magnesium is 1.5. BMI is 41.6. Liver function test show total bilirubin of 1.6, AST of 162, ALT of 56, alkaline phosphatase of 218. Lipase was 85. Troponin is less than 0.012 then trended to less than 0.012 after repeat check. Coags were unremarkable. EKG demonstrates normal sinus rhythm with low voltage, normal axis, no evidence of ischemia. Chest x-ray does demonstrate cardiomegaly with some mild pulmonary vascular congestion, however, this could be overestimated due to poor exposure. Pts troponins were negative. She was seen and cleared by cardiology. Her chest pain resolved with resumption of her xanax. Pt was discharged home with prescription for xanax for 3 days, with instructions to discuss a tapering plan with her PCP. She was also counseled on ETOH cessation. I spent 34 minutes coordinating this discharge on 03/22 Gen: in no apparent distress, resting comfortably in bed Eyes: PERRL, no scleral injection or icterus HENT: normocephalic, atraumatic, good hearing acuity, moist mucous membranes Neck: no tracheal deviation, full range of motion Resp: good air exchange, breathing comfortably with no accessory muscle use, no tactile fremitus CVS: good distal perfusion x 4, no pitting edema GI: soft, NTTP, ND, no hepatosplenomegaly : no suprapubic tenderness, no CVAT, barrett catheter not present MSK: no clubbing, no cyanosis, no noted contractures of extremities Skin: no noted rashes, petechiae; temperature of skin is appropriate Neuro: moving all extremities without signs of weakness, CN II-XII intact Psych: cooperative, euthymic mood, insight and judgment intact Patient Condition at Discharge: Good Plan - Discharge Summary Discharge Rx Participant: Yes New Discharge Prescriptions: New Folic Acid 1 mg PO DAILY #14 tab Multivitamins, Thera [Multivitamin (formulary)] 1 each PO DAILY #14 tab Thiamine [Vitamin B-1] 100 mg PO DAILY #14 tab Continue Aspirin EC [Ecotrin Low Dose] 81 mg PO DAILY Valsartan [Diovan] 160 mg PO DAILY Carvedilol [Coreg] 12.5 mg PO BID Insulin Glargine,Hum.rec.anlog [Lantus Solostar Pen] 19 - 23 units SQ DAILY Cholecalciferol [Vitamin D3 (25 Mcg = 1000 Iu)] 25 mcg PO DAILY DULoxetine HCL [Cymbalta] 20 mg PO DAILY Dicyclomine [Bentyl] 10 mg PO TID PRN PRN Reason: IBS Rosuvastatin [Crestor] 20 mg PO Q2D Gabapentin [Neurontin] 100 mg PO BID Changed ALPRAZolam [Xanax] 0.5 mg PO BID PRN #6 tab PRN Reason: Anxiety Discharge Medication List Aspirin EC [Ecotrin Low Dose] 81 mg PO DAILY 08/08/15 [History] Carvedilol [Coreg] 12.5 mg PO BID 08/08/15 [History] Valsartan [Diovan] 160 mg PO DAILY 08/08/15 [History] Insulin Glargine,Hum.rec.anlog [Lantus Solostar Pen] 19 - 23 units SQ DAILY 10/26/21 [History] Rosuvastatin [Crestor] 20 mg PO Q2D 10/26/21 [History] Cholecalciferol [Vitamin D3 (25 Mcg = 1000 Iu)] 25 mcg PO DAILY 04/30/22 [History] Gabapentin [Neurontin] 100 mg PO BID 04/30/22 [History] DULoxetine HCL [Cymbalta] 20 mg PO DAILY 03/21/23 [History] Dicyclomine [Bentyl] 10 mg PO TID PRN 03/21/23 [History] ALPRAZolam [Xanax] 0.5 mg PO BID PRN #6 tab 03/22/23 [Rx] Folic Acid 1 mg PO DAILY #14 tab 03/22/23 [Rx] Multivitamins, Thera [Multivitamin (formulary)] 1 each PO DAILY #14 tab 03/22/23 [Rx] Thiamine [Vitamin B-1] 100 mg PO DAILY #14 tab 03/22/23 [Rx] Follow up Appointment(s)/Referral(s): Mary Ortiz DO [Primary Care Provider] - 1-2 days Patient Instructions/Handouts: Seizure/Epilepsy Discharge Instructions & Follow-Up Discharge/Stand Alone Forms: AA Meetings & 24 - [facility], AA Meetings [place] Discharge Disposition: HOME SELF-CARE
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
== END 2023-03-22 18:11 | disposition home or self-care (01) ==
LOC: EC 09:03 → 6NMEDSUR 13:17
PROVIDERS: ADMIT Student in an Organized Health Care Education/Training Program; ATTEND Student in an Organized Health Care Education/Training Program
DX: R07.89 Other chest pain (principal); F41.9 Anxiety disorder, unspecified; C85.92 Non-Hodgkin lymphoma, unspecified, intrathoracic lymph nodes; E66.9 Obesity, unspecified; D75.89 Other specified diseases of blood and blood-forming organs; R11.2 Nausea with vomiting, unspecified; R11.10 Vomiting, unspecified; Z68.41 Body mass index [BMI] 40.0-44.9, adult; R06.02 Shortness of breath; I10 Essential (primary) hypertension; D69.6 Thrombocytopenia, unspecified; E87.1 Hypo-osmolality and hyponatremia; E86.1 Hypovolemia; K21.9 Gastro-esophageal reflux disease without esophagitis; E03.9 Hypothyroidism, unspecified; F32.A Depression, unspecified; F17.210 Nicotine dependence, cigarettes, uncomplicated; F10.239 Alcohol dependence with withdrawal, unspecified; E78.5 Hyperlipidemia, unspecified; Z82.49 Family history of ischemic heart disease and other diseases of the circulatory system; Z79.4 Long term (current) use of insulin; Z79.899 Other long term (current) drug therapy; Z79.82 Long term (current) use of aspirin
CPT/HCPCS: 96361; 96365; 96372; 96375; 99285; 36415; 94760; 93005; 80061; 80053; 80048; 80076; 83690; 83735 ×2; 84484; 85025 ×2; 85610; 85730; 71046; G0378 ×2; J2060; J2405; J1650; J3475

== ENCOUNTER 2024-08-07 01:50 | Inpatient (IN) | payer BC, MEDICARE ==
--- NOTE | 2024-08-07 02:26 | ED ---
General Adult HPI - General Chief complaint: Extremity Injury, Upper Stated complaint: Fall Time Seen by Provider: 08/07/24 02:10 Source: patient, RN notes reviewed, old records reviewed Mode of arrival: ambulatory Limitations: no limitations - History of Present Illness Initial comments: 64-year-old female with history of hyponatremia, alcohol abuse, hypertension, diabetes who presents emergency department after falling over 24 hours ago. Patient had a mechanical fall tripping on a dog's toy landing on her left shoulder. Thought she sprained her shoulder but pain has not improved and presents for further evaluation at this time. States she cannot move the left shoulder secondary to pain. No pain in the left elbow or hand or wrist. Denies any acute back pain but has chronic back pain. Denies any other obvious injuries. Did not hit her head or lose consciousness when she fell. Has been ambulatory since. States she did bump her right knee but has been ambulating on it with no acute complaints. Is not on blood thinners. Presents for further evaluation. States that with her history of hyponatremia, she is on her sodium tablets at home and has been compliant. - Related Data Home Medications Medication Instructions Recorded Confirmed Aspirin EC [Ecotrin Low Dose] 81 mg PO DAILY 08/08/15 03/21/23 Carvedilol [Coreg] 12.5 mg PO BID 08/08/15 03/21/23 Valsartan [Diovan] 160 mg PO DAILY 08/08/15 03/21/23 Insulin Glargine,Hum.rec.anlog 19 - 23 units SQ DAILY 10/26/21 03/21/23 [Lantus Solostar Pen] Rosuvastatin [Crestor] 20 mg PO Q2D 10/26/21 03/21/23 Cholecalciferol [Vitamin D3 (25 25 mcg PO DAILY 04/30/22 03/21/23 Mcg = 1000 Iu)] Gabapentin [Neurontin] 100 mg PO BID 04/30/22 03/21/23 DULoxetine HCL [Cymbalta] 20 mg PO DAILY 03/21/23 03/21/23 Dicyclomine [Bentyl] 10 mg PO TID PRN 03/21/23 03/21/23 Previous Rx's Medication Instructions Recorded ALPRAZolam [Xanax] 0.5 mg PO BID PRN #6 tab 03/22/23 Folic Acid 1 mg PO DAILY #14 tab 03/22/23 Multivitamins, Thera [Multivitamin 1 each PO DAILY #14 tab 03/22/23 (formulary)] Thiamine [Vitamin B-1] 100 mg PO DAILY #14 tab 03/22/23 Allergies Allergy/AdvReac Type Severity Reaction Status Date / Time Latex, Natural Rubber Allergy Rash/Hives Verified 08/07/24 01:58 codeine AdvReac Vomiting Verified 08/07/24 01:58 Review of Systems ROS Statement: Those systems with pertinent positive or pertinent negative responses have been documented in the HPI. Review of Systems: CONST: Denies fever EYES: Denies blurry vision ENT: Denies nasal congestion C/V: Denies Chest pain RESP: Denies shortness of breath GI: Denies abdominal pain : Denies dysuria SKIN: Denies rash. MSK: Endorses left shoulder pain NEURO: Denies headache ROS Other: All systems not noted in ROS Statement are negative. Past Medical History Past Medical History: Cancer, GERD/Reflux, Hypertension, Pneumonia, Thyroid D isorder Additional Past Medical History / Comment(s): Pt states she has had ascities intermittently for past 1.5 years and was just recently admitted to [facility] for this problem, nonhodgkins lymphoma treated with chemo-she has "2 spots left lower lobe of my lung that have been unchanged for 3 yrs, UTIs, hypothyroid recently diagnosed, ETOH abuse with electrolyte imbalances/thrombocytopenia. History of Any Multi-Drug Resistant Organisms: None Reported Past Surgical History: Breast Surgery Additional Past Surgical History / Comment(s): Uterine ablation, bilateral breast reduction, colonoscopies x 4 and a couple polypectomies-benign, D&Cs as a teen for heavy bleeding. Past Anesthesia/Blood Transfusion Reactions: Postoperative Nausea & Vomiting (PONV) Additional Past Anesthesia/Blood Transfusion Reaction / Comment(s): Pt has received blood as a teen with heavy vaginal bleeding. She does not recall a reaction. Past Psychological History: Anxiety, Depression Smoking Status: Current every day smoker Past Alcohol Use History: Daily Past Drug Use History: Marijuana - Past Family History Mother Family Medical History: AFIB, Fibromyalgia, Hyperlipidemia, Hypertension, Rheumatoid Arthritis (RA) Additional Family Medical History / Comment(s): Mother is 80 yrs old. Father Family Medical History: Myocardial Infarction ([place]) Additional Family Medical History / Comment(s): Father of a [place] at the age of 50yrs. General Exam - General Exam Comments Initial Comments: General: Appears in mild distress secondary to pain in left shoulder. HEAD: Normal with no signs of head trauma. Negative Gee sign. Negative raccoon eyes. EYES: PERRLA, EOMI, conjunctiva normal, no discharge. Pupils 3 mm and equal bilaterally. ENT: Hearing grossly intact, normal oropharynx. RESPIRATORY: Clear breath sounds bilaterally. No wheezes, rales, or rhonchi. C/V: Regular rate and rhythm. S1 and S2 auscultated, no edema, peripheral pulses 2+ and intact throughout ABD: Abd is soft, nontender, nondistended EXT: Decreased range of motion of the left shoulder secondary to pain. Normal range of motion of the left elbow and left wrist and hand. Neurovascular intact throughout the left upper extremity. No obvious deformity. SKIN: No rashes or lesions observed on exposed skin. NEURO: Alert and orient x 4. GCS 15. Limitations: no limitations Course Vital Signs 08/07/24 08/07/24 01:55 02:28 Temperature 97.9 F Pulse Rate 88 Respiratory 18 Rate Blood Pressure 91/65 97/61 O2 Sat by Pulse 95 Oximetry Medical Decision Making - Medical Decision Making Was pt. sent in by a medical professional or institution (, PA, [facility], urgent care, hospital, or snf...) When possible be specific @ -No Did you speak to anyone other than the patient for history (EMS, parent, family, police, friend...)? What history was obtained from this source @ -No Did you review nursing and triage notes (agree or disagree)? Why? @ -I reviewed and agree with nursing and triage notes Were old charts reviewed (outside hosp., previous admission, EMS record, old EKG, old radiological studies, urgent care reports/EKG's, snf records)? Report findings @ -No old charts were reviewed Differential Diagnosis (chest pain, altered mental status, abdominal pain women, abdominal pain men, vaginal bleeding, weakness, fever, dyspnea, syncope, headache, dizziness, GI bleed, back pain, seizure, CVA, palpatations, mental health, musculoskeletal)? @ -Differential Musculoskeletal Muscular strain, contusion, ligament sprain, fracture, arthritis, septic arthritis, bursitis, cellulitis, muscle spasm, nerve compression, DVT, arterial occlusion, herpes zoster, electrolyte abnormality, tumor.... This is not meant to be in all inclusive list EKG interpreted by me (3pts min.). @ -None done X-rays interpreted by me (1pt min.). @ -X-ray shows a proximal left humerus fracture CT interpreted by me (1pt min.). @ -None done U/S interpreted by me (1pt. min.). @ -None done What testing was considered but not performed or refused? (CT, X-rays, U/S, labs)? Why? @ -None What meds were considered but not given or refused? Why? @ -None Did you discuss the management of the patient with other professionals (professionals i.e. , PA, [facility], lab, RT, psych nurse, psychiatric social worker supervisor, grounds and nursery specialist, teacher, surveillance sensor officer, therapeutic case manager)? Give summary @ -No Was smoking cessation discussed for >3mins.? @ -No Was critical care preformed (if so, how long)? @ -No Were there social determinants of health that impacted care today? How? (Homelessness, low income, unemployed, alcoholism, drug addiction, transportation, low edu. Level, literacy, decrease access to med. care, residential, rehab)? @ -No Was there de-escalation of care discussed even if they declined (Discuss DNR or withdrawal of care, Hospice)? DNR status @ -No What co-morbidities impacted this encounter? (DM, HTN, Smoking, COPD, CAD, Cancer, CVA, ARF, Chemo, Hep., AIDS, mental health diagnosis, sleep apnea, morbid obesity)? @ -None Was patient admitted / discharged? Hospital course, mention meds given and route, prescriptions, significant lab abnormalities, going to OR and other pertinent info. @ -Patient presents with mechanical fall and left shoulder pain. Also has a history of hyponatremia. We will obtain basic labs to check on her sodium at her request as well as an x-ray of the left shoulder. She be given IV fluids as well as pain meds. She was in agreement this plan. X-ray shows a proximal left humerus fracture. Laboratory studies remarkable for hyponatremia with a sodium of 121 and hypochloremia of 86. This is chronic. I updated the patient. Vitals are within acceptable limits. Patient will be ad mitted for the hyponatremia. While she is here, I will consult orthopedics to evaluate the patient for the shoulder injury. She was placed in a sling. She was in agreement this plan. Patient placed on maintenance fluids for the hyponatremia to 100 cc an hour. As patient is being admitted for the hyponatremia and not for the humerus fracture, patient will be admitted to medicine with orthopedic consult. I spoke with the admitting provider, [facility] Jain who accepted the admission. Undiagnosed new problem with uncertain prognosis? @ -No Drug Therapy requiring intensive monitoring for toxicity (Heparin, Nitro, Insulin, Cardizem)? @ -No Were any procedures done? @ -No Diagnosis/symptom? @ -Hyponatremia, fall with proximal left humerus fracture Acute, or Chronic, or Acute on Chronic? @ -Acute Uncomplicated (without systemic symptoms) or Complicated (systemic symptoms)? @ -Complicated Side effects of treatment? @ -None Exacerbation, Progression, or Severe Exacerbation] @ -No Poses a threat to life or bodily function? @ -Potentially, yes - Lab Data Result diagrams: 08/07/24 02:38 08/07/24 02:38 Lab Results 08/07/24 08/07/24 Range/Units 02:38 02:38 WBC 7.48 (4.50-10.00) 10*3/uL RBC 3.51 L (4.10-5.20) 10*6/uL Hgb 12.3 (12.0-15.0) g/dL Hct 34.0 L (37.2-46.3) % MCV 96.9 (80.0-97.0) fL MCH 35.0 H (27.0-32.0) pg MCHC 36.2 (32.0-37.0) g/dL Plt Count 106 L (140-440) 10*3/uL MPV 9.5 (9.5-12.2) fL Immature Gran % (Auto) 0.5 % Neutrophils % 61.7 % Lymphocytes % 18.4 % Monocytes % 17.1 % Eosinophils % 1.5 % Basophils % 0.8 % Immature Gran # 0.04 (0.00-0.04) 10*3/uL Neutrophils # 4.61 (1.80-7.70) 10*3/uL Lymphocytes # 1.38 (0.90-5.00) 10*3/uL Monocytes # 1.28 H (0.20-1.00) 10*3/uL Eosinophils # 0.11 (0.04-0.35) 10*3/uL Basophils # 0.06 (0.00-0.10) 10*3/uL Sodium 121 L (137-145) mmol/L Potassium 5.2 H (3.5-5.1) mmol/L Chloride 86 L (98-107) mmol/L Carbon Dioxide 20 L (22-30) mmol/L Anion Gap 15 mmol/L BUN 10 (7-17) mg/dL Creatinine 1.24 H (0.52-1.04) mg/dL Est GFR (CKD-EPI)AfAm 53 (>60 ml/min/1.73 sqM) Est GFR (CKD-EPI)NonAf 46 (>60 ml/min/1.73 sqM) Glucose 187 H (74-99) mg/dL Calcium 8.4 (8.4-10.2) mg/dL Disposition Clinical Impression: Fall, Fracture of proximal end of left humerus, Hyponatremia Disposition: ADMITTED IP TO THIS HOSP Condition: Stable Referrals: Mary Ortiz DO [Primary Care Provider] - 1-2 days Time of Disposition: 03:45
[2024-08-07] MEDS: SODIUM CHLORIDE 0.9% 500 ML 500 ML IV ONE (02:35)
[2024-08-07] MEDS: fentaNYL (PF) 50 MCG/ML 2 ML AMP IVP STA (02:39)
[2024-08-07] MEDS: MORPHINE SULFATE 4 MG/ML SYRINGE IVP STA (02:40)
[2024-08-07 02:57] LABS: Basophils # (A) 0.06 10*3/uL (0.00-0.10); Basophils % (A) 0.8 %; Eosinophils # (A) 0.11 10*3/uL (0.04-0.35); Eosinophils % (A) 1.5 %; HCT 34.0 % (37.2-46.3); HGB 12.3 g/dL (12.0-15.0); Lymphocytes # (A) 1.38 10*3/uL (0.90-5.00); Lymphocytes % (A) 18.4 %; MCH 35.0 pg (27.0-32.0); MCHC 36.2 g/dL (32.0-37.0); MCV 96.9 fL (80.0-97.0); Monocytes # (A) 1.28 10*3/uL (0.20-1.00); Monocytes % (A) 17.1 %; Neutrophils # (A) 4.61 10*3/uL (1.80-7.70); Neutrophils % (A) 61.7 %; Platelet Count 106 10*3/uL (140-440); RBC 3.51 10*6/uL (4.10-5.20); RDW 14.3 % (11.5-14.5); WBC 7.48 10*3/uL (4.50-10.00)
[2024-08-07] MEDS: ONDANSETRON 4 MG/2 ML VIAL IVP STA (03:00)
[2024-08-07 03:08] LABS: African American GFR (CKD) 53 (>60 ml/min/1.73 sqM); Anion Gap 15 mmol/L; Blood Urea Nitrogen 10 mg/dL (7-17); Calcium 8.4 mg/dL (8.4-10.2); Carbon Dioxide 20 mmol/L (22-30); Chloride 86 mmol/L (98-107); Glucose 187 mg/dL (74-99); Non-African American GFR(CKD) 46 (>60 ml/min/1.73 sqM); Potassium 5.2 mmol/L (3.5-5.1); Sodium 121 mmol/L (137-145)
[2024-08-07] MEDS: SODIUM CHLORIDE 0.9% 1,000 ML IV STA (03:24)
[2024-08-07] MEDS: HYDROcodone/APAP 5-325MG 1 EACH TAB PO STA (03:33)
[2024-08-07] MEDS: KETOROLAC 15 MG/ML 1 ML VIAL IVP STA (03:34)
[2024-08-07] MEDS ORDERED: ACETAMINOPHEN TAB 325 MG TAB PO PRN (03:34)
[2024-08-07] MEDS ORDERED: NALOXONE 0.4 MG/ML 1 ML VIAL IV PRN (03:34)
--- NOTE | 2024-08-07 04:31 | XR ---
EXAM: XR Left Shoulder Complete, 3Views CLINICAL HISTORY: pt tripped and fell left shoulder pain TECHNIQUE: 3views of the left shoulder. COMPARISON: No relevant prior studies available. FINDINGS: Bones/joints: Comminuted fracture of left humeral head and neck with 7 mm lateral distraction and mild lateral apex angulation. Suspect inferior subluxation at the glenohumeral joint, possibly related to hemarthrosis. Soft tissues: Associated soft tissue swelling without gas or radiopaque foreign object. IMPRESSION: 1. Comminuted fracture of left humeral head and neck with 7 mm lateral distraction and mild lateral apex angulation. 2. Suspect inferior subluxation at the glenohumeral joint, possibly related to hemarthrosis.
[2024-08-07] MEDS: MORPHINE SULFATE 4 MG/ML SYRINGE IV PRN (05:49)
[2024-08-07] MEDS: ONDANSETRON 4 MG/2 ML VIAL IVP PRN (08:38)
[2024-08-07] MEDS: HYDROcodone/APAP 5-325MG 1 EACH TAB PO PRN (08:40)
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
[2024-08-07] MEDS: KETOROLAC 15 MG/ML 1 ML VIAL IVP PRN (11:14)
[2024-08-07 11:57] LABS: Anion Gap 13.0 mmol/L; Carbon Dioxide 22.0 mmol/L (22-30); Chloride 88.0 mmol/L (98-107); Potassium 5.5 mmol/L (3.5-5.1); Sodium 123.0 mmol/L (137-145)
[2024-08-07 13:23] LABS: Glucose,Whole Blood 147 mg/dL (70-110)
[2024-08-07] MEDS: ALPRAZolam 0.5 MG TAB PO PRN (14:06)
[2024-08-07] MEDS ORDERED: DEXTROSE 50% SYRINGE 50 ML IVP PRN ×2 (14:19)
[2024-08-07 16:23] LABS: Glucose,Whole Blood 209 mg/dL (70-110)
[2024-08-07] MEDS: METOCLOPRAMIDE 5 MG/ML 2 ML VIAL IVP PRN (19:03)
[2024-08-07] MEDS: INSULIN LISPRO (HumaLOG) 100 UNIT/ML 10 mL VL SQ SCH (19:04)
[2024-08-07 20:34] LABS: Glucose,Whole Blood 219 mg/dL (70-110)
[2024-08-07 22:13] LABS: Anion Gap 8.0 mmol/L; Carbon Dioxide 25.0 mmol/L (22-30); Chloride 89.0 mmol/L (98-107); Potassium 5.4 mmol/L (3.5-5.1); Sodium 122.0 mmol/L (137-145)
[2024-08-08] MEDS: SODIUM CHLORIDE 0.9% 1,000 ML IV SCH (00:19)
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
[2024-08-08 06:19] LABS: Glucose,Whole Blood 147 mg/dL (70-110)
[2024-08-08] MEDS: HEPARIN SODIUM,PORCINE 5,000 UNIT/ML 1 ML VIAL SQ SCH (09:39)
[2024-08-08] MEDS: FAMOTIDINE 20 MG/2 ML VIAL IV SCH (09:51)
[2024-08-08 10:37] LABS: ALT 42 U/L (8-44); AST 76 U/L (13-35); Albumin 3.3 g/dL (3.8-4.9); Albumin/Globulin Ratio 1.50 Ratio (1.60-3.17); Alkaline Phosphatase 175 U/L (41-126); Anion Gap 9.40 mmol/L (4.00-12.00); BUN/Creat Ratio 14.50 Ratio (12.00-20.00); Blood Urea Nitrogen 11.6 mg/dL (9.0-27.0); Calcium 7.8 mg/dL (8.7-10.3); Carbon Dioxide 25.6 mmol/L (21.6-31.8); Chloride 90 mmol/L (96-109); Globulin 2.2 g/dL (1.6-3.3); Glucose 146 mg/dL (70-110); Potassium 5.3 mmol/L (3.5-5.5); Sodium 125 mmol/L (135-145); Total Protein 5.5 g/dL (6.2-8.2)
[2024-08-08 10:40] LABS: Basophils # (A) 0.05 X 10*3/uL (0.00-0.10); Basophils % (A) 0.7 %; Eosinophils # (A) 0.10 X 10*3/uL (0.04-0.35); Eosinophils % (A) 1.4 %; HCT 31.8 % (37.2-46.3); HGB 11.1 g/dL (12.0-15.0); Immature Grans, Automated 0.40 %; Lymphocytes # (A) 1.02 X 10*3/uL (0.90-5.00); Lymphocytes % (A) 14.8 %; MCH 34.2 pg (27.0-32.0); MCHC 34.9 g/dL (32.0-37.0); MCV 97.8 FL (80.0-97.0); Monocytes # (A) 1.37 X 10*3/uL (0.20-1.00); Monocytes % (A) 19.8 %; NRBC Per 100 WBC 0 X 10*3/uL (0.00-0.01); Neutrophils # (A) 4.34 X 10*3/uL (1.80-7.70); Neutrophils % (A) 62.9 %; Platelet Count 83 X 10*3/uL (140-440); RBC 3.25 X 10*6/uL (4.10-5.20); RDW 14.1 % (11.5-14.5); WBC 6.91 X 10*3/uL (4.50-10.00)
[2024-08-08 11:44] LABS: Glucose,Whole Blood 172 mg/dL (70-110)
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
--- NOTE | 2024-08-08 13:34 | P.PN ---
Subjective Progress Note Date: 08/08/24 This is a 64 year-old female who is admitted for left proximal humerus fracture. Patient is seen and evaluated at bedside today. Patient states that the shoulder is painful and her sling is uncomfortable. Otherwise, patient denies any new complaints today. Objective - Vital Signs Vital signs: Vital Signs Temp 98.6 F 08/08/24 07:45 Pulse 85 08/08/24 07:45 Resp 17 08/08/24 07:45 BP 116/73 08/08/24 07:45 Pulse Ox 95 08/08/24 07:45 FiO2 Intake & Output 08/07/24 08/08/24 08/08/24 18:59 06:59 18:59 Intake Total 1000 200 Balance 1000 200 Intake: Oral 1000 200 Other: Voiding Method Toilet # Voids 2 1 - Exam Left upper extremity: Skin intact. Mild swelling. Good motion of the left wrist and hand. Left upper extremity is warm and well perfused. Sensation intact. Neurovascular status and circulatory status are intact. - Labs CBC & Chem 7: 08/08/24 03:25 08/08/24 08:59 Labs: Abnormal Lab Results - Last 24 Hours (Table) 08/07/24 08/07/24 08/07/24 Range/Units 16:21 20:32 21:30 RBC (4.10-5.20) X 10*6/uL Hgb (12.0-15.0) g/dL Hct (37.2-46.3) % MCV (80.0-97.0) FL MCH (27.0-32.0) pg Plt Count (140-440) X 10*3/uL Monocytes # (0.20-1.00) X 10*3/uL Sodium 122 L (137-145) mmol/L Potassium 5.4 H (3.5-5.1) mmol/L Chloride 89 L (98-107) mmol/L Glucose (70-110) mg/dL POC Glucose (mg/dL) 209 H 219 H (70-110) mg/dL Hemoglobin A1c (<=6.0) % Calcium (8.7-10.3) mg/dL Total Bilirubin (0.3-1.2) mg/dL AST (13-35) U/L Alkaline Phosphatase (41-126) U/L Total Protein (6.2-8.2) g/dL Albumin (3.8-4.9) g/dL Albumin/Globulin Ratio (1.60-3.17) Ratio 08/08/24 08/08/24 08/08/24 Range/Units 03:25 03:25 03:25 RBC 3.25 L (4.10-5.20) X 10*6/uL Hgb 11.1 L (12.0-15.0) g/dL Hct 31.8 L (37.2-46.3) % MCV 97.8 H (80.0-97.0) FL MCH 34.2 H (27.0-32.0) pg Plt Count 83 L (140-440) X 10*3/uL Monocytes # 1.37 H (0.20-1.00) X 10*3/uL Sodium 125 L (137-145) mmol/L Potassium (3.5-5.1) mmol/L Chloride 90 L (98-107) mmol/L Glucose 146 H (70-110) mg/dL POC Glucose (mg/dL) (70-110) mg/dL Hemoglobin A1c 7.1 H (<=6.0) % Calcium 7.8 L (8.7-10.3) mg/dL Total Bilirubin 2.7 H (0.3-1.2) mg/dL AST 76 H (13-35) U/L Alkaline Phosphatase 175 H (41-126) U/L Total Protein 5.5 L (6.2-8.2) g/dL Albumin 3.3 L (3.8-4.9) g/dL Albumin/Globulin Ratio 1.50 L (1.60-3.17) Ratio 08/08/24 08/08/24 08/08/24 Range/Units 06:18 08:59 11:42 RBC (4.10-5.20) X 10*6/uL Hgb (12.0-15.0) g/dL Hct (37.2-46.3) % MCV (80.0-97.0) FL MCH (27.0-32.0) pg Plt Count (140-440) X 10*3/uL Monocytes # (0.20-1.00) X 10*3/uL Sodium 123 L (137-145) mmol/L Potassium (3.5-5.1) mmol/L Chloride (98-107) mmol/L Glucose (70-110) mg/dL POC Glucose (mg/dL) 147 H 172 H (70-110) mg/dL Hemoglobin A1c (<=6.0) % Calcium (8.7-10.3) mg/dL Total Bilirubin (0.3-1.2) mg/dL AST (13-35) U/L Alkaline Phosphatase (41-126) U/L Total Protein (6.2-8.2) g/dL Albumin (3.8-4.9) g/dL Albumin/Globulin Ratio (1.60-3.17) Ratio Assessment and Plan (1) Fall Current Visit: Yes Status: Acute Code(s): W19.XXXA - UNSPECIFIED FALL, INITIAL ENCOUNTER SNOMED Code(s): 0271628 (2) Fracture of proximal end of left humerus Current Visit: Yes Status: Acute Code(s): S42.202A - UNSP FRACTURE OF UPPER END OF LEFT HUMERUS, INIT FOR CLOS FX SNOMED Code(s): 832929824 (3) Hyponatremia Current Visit: Yes Status: Acute Code(s): E87.1 - HYPO-OSMOLALITY AND HYPONATREMIA SNOMED Code(s): 59416811 Plan: 1. Maintain arm sling to the left upper extremity. Rest, ice and elevate for swelling. An order for a new sling is placed today. 2. Continue pain control. 3. Appreciate input from internal medicine. 4. No surgical intervention is planned. Recommend conservative management at this time. All questions and concerns were addressed at bedside today. Patient is to follow-up on an outpatient basis.
[2024-08-08 13:46] LABS: Sodium 121.0 mmol/L (137-145)
[2024-08-08 16:36] LABS: Glucose,Whole Blood 179 mg/dL (70-110)
[2024-08-08] MEDS: FUROSEMIDE 10 MG/ML 2 ML VIAL IV ONE (18:20)
[2024-08-09 06:18] LABS: Glucose,Whole Blood 154 mg/dL (70-110)
--- NOTE | 2024-08-09 08:10 | P.PN ---
Subjective This is a pleasant 64 years old female with multiple medical show she did not come to emergency room Also patient vomited several times each week but I will problems Presents because of left shoulder pain after a fall Patient stepped on her dog toy and she fell She denies dizziness syncope or any other complaint while falling After she gets up she was complaining from severe pain in her right shoulder about 10/ Also patient vomited several times, patient states each time she put something in her mouth she vomits that has been going on for the last 2 days Her left arm is in sling Patient blood pressure on the low side afebrile CBC normal sodium 121. Shoulder x-ray showing comminuted fracture of the left humeral head and about 7 mm lateral displacement 08/09 Patient feels better and stronger Her main complaint is having left shoulder, sling in place evaluated by orthopedic team: No surgical intervention Patient initially treated with Normal Saline 100 mL/h, hyponatremia started improving, however sodium level dropped again Given IV Lasix per merchandise flow team member Monitor sodium level closely TSH is normal Active Medications Generic Name Dose Route Start Last Admin Trade Name Freq PRN Reason Stop Dose Admin Acetaminophen 650 mg 08/07/24 03:34 Acetaminophen Tab 325 Mg Tab PO Q6HR PRN Mild Pain or Fever > 100.5 Hydrocodone Bitart/Acetaminophen 1 each 08/07/24 03:29 08/09/24 06:26 Hydrocodone/Apap 5-325mg 1 Each Tab PO 1 each Q4HR PRN Administration Pain Alprazolam 0.5 mg 08/07/24 11:21 08/08/24 22:15 Alprazolam 0.5 Mg Tab PO 0.5 mg BID PRN Administration Anxiety Carvedilol 12.5 mg 08/07/24 17:30 08/09/24 06:26 Carvedilol 12.5 Mg Tab PO 12.5 mg BID-W/MEALS SUHAS Administration Dextrose/Water 25 ml 08/07/24 14:19 Dextrose 50% Syringe 50 Ml IVP PER PROTOCOL PRN Hypoglycemia Protocol Dextrose/Water 50 ml 08/07/24 14:19 Dextrose 50% Syringe 50 Ml IVP PER PROTOCOL PRN Hypoglycemia Protocol Famotidine 20 mg 08/08/24 09:00 08/08/24 20:30 Famotidine 20 Mg/2 Ml Vial IV 20 mg Q12HR SUHAS Administration Heparin Sodium (Porcine) 5,000 unit 08/08/24 09:00 08/08/24 20:30 Heparin Sodium,Porcine 5,000 Unit/Ml 1 Ml Vial SQ 5,000 unit Q12HR SUHAS Administration Insulin Human Lispro 0 unit 08/07/24 17:30 08/09/24 06:26 Insulin Lispro (Humalog) 100 Unit/Ml 10 Ml Vl SQ 1 unit ACHS SUHAS Administration Protocol Metoclopramide HCl 5 mg 08/07/24 18:36 08/08/24 06:42 Metoclopramide 5 Mg/Ml 2 Ml Vial IVP 5 mg Q6HR PRN Administration Nausea And Vomiting Morphine Sulfate 4 mg 08/07/24 03:34 08/07/24 16:49 Morphine Sulfate 4 Mg/Ml Syringe IV 4 mg Q4HR PRN Administration Severe Pain (Scale 7 to 10) Naloxone HCl 0.2 mg 08/07/24 03:34 Naloxone 0.4 Mg/Ml 1 Ml Vial IV Q2M PRN Opioid Reversal Ondansetron HCl 4 mg 08/07/24 03:34 08/08/24 11:00 Ondansetron 4 Mg/2 Ml Vial IVP 4 mg Q8HR PRN Administration Nausea And Vomiting Objective - Vital Signs Vital signs: Vital Signs Temp 98.6 F 08/08/24 07:45 Pulse 85 08/08/24 07:45 Resp 17 08/08/24 07:45 BP 116/73 08/08/24 07:45 Pulse Ox 95 08/08/24 07:45 FiO2 Intake & Output 08/07/24 08/08/24 08/08/24 18:59 06:59 18:59 Intake Total 1000 200 Balance 1000 200 Intake: Oral 1000 200 Other: Voiding Method Toilet # Voids 2 1 - Exam GENERAL: The patient is alert and oriented x3, not in any acute distress. Well developed, well nourished. HEENT: Pupils are round and equally reacting to light. EOMI. No scleral icterus. No conjunctival pallor. Normocephalic, atraumatic. No pharyngeal erythema. No thyromegaly. CARDIOVASCULAR: S1 and S2 present. No murmurs, rubs, or gallops. PULMONARY: Chest is clear to auscultation, no wheezing , no crackles. ABDOMEN: Soft, nontender, nondistended, normoactive bowel sounds. No palpable organomegaly. MUSCULOSKELETAL: No joint swelling or deformity. -EXTREMITIES: No cyanosis, clubbing, or pedal edema. Left shoulder tenderness NEUROLOGICAL: Gross neurological examination did not reveal any focal deficits. SKIN: No rashes. no petechiae. - Labs CBC & Chem 7: 08/08/24 03:25 08/08/24 13:05 Labs: Abnormal Lab Results - Last 24 Hours (Table) 08/07/24 08/07/24 08/07/24 Range/Units 11:27 13:21 16:21 Sodium 123 L (137-145) mmol/L Potassium 5.5 H (3.5-5.1) mmol/L Chloride 88 L (98-107) mmol/L POC Glucose (mg/dL) 147 H 209 H (70-110) mg/dL 08/07/24 08/07/24 08/08/24 Range/Units 20:32 21:30 06:18 Sodium 122 L (137-145) mmol/L Potassium 5.4 H (3.5-5.1) mmol/L Chloride 89 L (98-107) mmol/L POC Glucose (mg/dL) 219 H 147 H (70-110) mg/dL 08/08/24 Range/Units 08:59 Sodium 123 L (137-145) mmol/L Potassium (3.5-5.1) mmol/L Chloride (98-107) mmol/L POC Glucose (mg/dL) (70-110) mg/dL Assessment and Plan Assessment: Hyponatremia, hypovolemic Hypotension with acute kidney injury Commuted fracture of the left humeral head and neck Depression on Wellbutrin Fall at home without syncope Plan: Normal Saline at 100 mL/h was discontinued Monitor sodium IV Lasix x1 Orthopedic team recommended no surgical intervention right now Hold valsartan Labs and medication were reviewed.. Continue same treatment. Continue with symptomatic treatment. Resume home medication. Monitor labs and vitals. DVT and GI prophylaxis. Further recommendations as per clinical course of the patient DVT prophylaxis: Subcutaneous heparin GI Prophylaxis: Pepcid PT/OT: Pending Prognosis is guarded
[2024-08-09 10:59] LABS: African American GFR (CKD) >90 (>60 ml/min/1.73 sqM); Anion Gap 6 mmol/L; Blood Urea Nitrogen 12 mg/dL (7-17); Calcium 8.5 mg/dL (8.4-10.2); Carbon Dioxide 28 mmol/L (22-30); Chloride 93 mmol/L (98-107); Glucose 149 mg/dL (74-99); Magnesium 1.5 mg/dL (1.6-2.3); Non-African American GFR(CKD) >90 (>60 ml/min/1.73 sqM); Potassium 4.7 mmol/L (3.5-5.1); Sodium 127 mmol/L (137-145)
--- NOTE | 2024-08-09 11:07 | P.PN ---
Subjective Patient is seen in follow-up for hyponatremia. Sodium level up to 127 this morning. Renal function at baseline. No diarrhea. No vomiting overnight. Vital signs are stable. General: The patient appeared well nourished and normally developed. HEENT: Head exam is unremarkable. LUNGS: No audible rhonchi or wheezes. HEART: Rate and Rhythm are regular. ABDOMEN: Nontender. EXTREMITITES: No edema. Objective - Vital Signs Vital signs: Vital Signs Temp 98.4 F 08/09/24 07:28 Pulse 97 08/09/24 07:28 Resp 18 08/09/24 07:28 BP 132/74 08/09/24 07:28 Pulse Ox 95 08/09/24 07:28 FiO2 Intake & Output 08/08/24 08/09/24 08/09/24 18:59 06:59 18:59 Intake Total 200 Balance 200 Intake: Oral 200 Other: Voiding Method Toilet Toilet Toilet # Voids 1 1 - Labs CBC & Chem 7: 08/08/24 03:25 08/09/24 10:34 Labs: Abnormal Lab Results - Last 24 Hours (Table) 08/08/24 08/08/24 08/08/24 Range/Units 03:25 11:42 13:05 Sodium 121 L (137-145) mmol/L Chloride (98-107) mmol/L Glucose (74-99) mg/dL POC Glucose (mg/dL) 172 H (70-110) mg/dL Osmolality 271 L (275-295) mOsm/kg Magnesium (1.6-2.3) mg/dL 08/08/24 08/09/24 08/09/24 Range/Units 16:35 06:17 10:34 Sodium 127 L (137-145) mmol/L Chloride 93 L (98-107) mmol/L Glucose 149 H (74-99) mg/dL POC Glucose (mg/dL) 179 H 154 H (70-110) mg/dL Osmolality (275-295) mOsm/kg Magnesium 1.5 L (1.6-2.3) mg/dL Assessment and Plan Plan: Assessment: 1. Hyponatremia, initially hypovolemic. Sodium level subsequently dropped with fluids and was given a dose of Lasix yesterday. Sodium level 127 today. TSH normal. Cortisol level on the lower end of normal. 2. Diabetes mellitus. 3. Hypomagnesemia from poor intake. 4. Benign hypertension. Controlled. Plan: Check urine sodium and urine osmolality. Add 1200 cc fluid restriction. Repeat labs in the morning. Replace magnesium.
[2024-08-09 11:32] LABS: Glucose,Whole Blood 145 mg/dL (70-110)
[2024-08-09] MEDS: MAGNESIUM SULFATE-D5W PMX 1 GM in DEXTROSE/WATER 1 100ML.BAG IVPB SCH (12:01)
[2024-08-09 16:46] LABS: Glucose,Whole Blood 186 mg/dL (70-110)
[2024-08-09] MEDS: HYDROcodone/APAP 7.5-325MG 1 EACH TAB PO PRN (18:03)
--- NOTE | 2024-08-10 02:38 | PN ---
PROGRESS NOTE DATE OF SERVICE: 08/09/2024 SUBJECTIVE: This 64-year-old woman who was admitted with comminuted fracture of the left humeral neck fracture, is complaining of pain. The patient also with some hyponatremia. No chest pain. No palpitations. No fever. PHYSICAL EXAMINATION: VITAL SIGNS: Pulse is 90, blood pressure n, respirations 18. CHEST: Clear to auscultation. CARDIOVASCULAR: S1, S2. ABDOMEN: Soft. EXTREMITIES: Upper arm status post fracture. LABORATORY DATA: Sodium 127, rest of the labs are noted. ASSESSMENT: 1. Comminuted fracture of the left humeral neck with severe pain. 2. Hyponatremia, hypovolemic. 3. Hypotension with acute kidney injury, present on admission. 4. Depression. 5. Fall at home. RECOMMENDATIONS AND DISCUSSION: I recommend to continue current management and continue symptomatic treatment. We will monitor the sodium closely, pain management, PT/OT evaluation. Guarded prognosis. Further recommendations to follow. MMCATHYL / DREAN: [id number] / MTDD
[2024-08-10 06:18] LABS: Glucose,Whole Blood 137 mg/dL (70-110)
[2024-08-10 07:11] LABS: Magnesium 1.8 mg/dL (1.5-2.4)
[2024-08-10 07:16] LABS: Basophils # (A) 0.05 X 10*3/uL (0.00-0.10); Basophils % (A) 0.9 %; Eosinophils # (A) 0.13 X 10*3/uL (0.04-0.35); Eosinophils % (A) 2.4 %; HCT 30.1 % (37.2-46.3); HGB 10.0 g/dL (12.0-15.0); Immature Grans, Automated 0.60 %; Lymphocytes # (A) 0.86 X 10*3/uL (0.90-5.00); Lymphocytes % (A) 16.1 %; MCH 33.8 pg (27.0-32.0); MCHC 33.2 g/dL (32.0-37.0); MCV 101.7 FL (80.0-97.0); Monocytes # (A) 0.97 X 10*3/uL (0.20-1.00); Monocytes % (A) 18.1 %; NRBC Per 100 WBC 0 X 10*3/uL (0.00-0.01); Neutrophils # (A) 3.31 X 10*3/uL (1.80-7.70); Neutrophils % (A) 61.9 %; Platelet Count 93 X 10*3/uL (140-440); RBC 2.96 X 10*6/uL (4.10-5.20); RDW 15.1 % (11.5-14.5); WBC 5.35 X 10*3/uL (4.50-10.00)
[2024-08-10 07:32] LABS: Anion Gap 10.60 mmol/L (4.00-12.00); BUN/Creat Ratio 10.50 Ratio (12.00-20.00); Blood Urea Nitrogen 8.4 mg/dL (9.0-27.0); Calcium 8.4 mg/dL (8.7-10.3); Carbon Dioxide 26.4 mmol/L (21.6-31.8); Chloride 94 mmol/L (96-109); Glucose 130 mg/dL (70-110); Potassium 4.7 mmol/L (3.5-5.5); Sodium 131 mmol/L (135-145)
[2024-08-10 07:44] VITALS: BP 136/76; PULSE 78; RESP 16; TEMP 98
--- NOTE | 2024-08-10 10:45 | P.PN ---
Subjective Patient is seen in follow-up for hyponatremia. Sodium level up to 131 this morning. Renal function at baseline. No diarrhea. No vomiting overnight. Vital signs are stable. General: The patient appeared well nourished and normally developed. HEENT: Head exam is unremarkable. LUNGS: No audible rhonchi or wheezes. HEART: Rate and Rhythm are regular. ABDOMEN: Nontender. EXTREMITITES: No edema. Objective - Vital Signs Vital signs: Vital Signs Temp 98.0 F 08/10/24 07:09 Pulse 78 08/10/24 07:40 Resp 16 08/10/24 07:40 BP 136/76 08/10/24 07:09 Pulse Ox 95 08/10/24 07:09 FiO2 Intake & Output 08/09/24 08/10/24 08/10/24 18:59 06:59 18:59 Other: Voiding Method Toilet Toilet Toilet # Voids 2 2 - Labs CBC & Chem 7: 08/10/24 03:32 08/10/24 03:32 Labs: Abnormal Lab Results - Last 24 Hours (Table) 08/09/24 08/09/24 08/09/24 Range/Units 10:34 11:30 16:44 RBC (4.10-5.20) X 10*6/uL Hgb (12.0-15.0) g/dL Hct (37.2-46.3) % MCV (80.0-97.0) FL MCH (27.0-32.0) pg RDW (11.5-14.5) % Plt Count (140-440) X 10*3/uL Lymphocytes # (0.90-5.00) X 10*3/uL Sodium 127 L (137-145) mmol/L Chloride 93 L (98-107) mmol/L BUN (9.0-27.0) mg/dL BUN/Creatinine Ratio (12.00-20.00) Ratio Glucose 149 H (74-99) mg/dL POC Glucose (mg/dL) 145 H 186 H (70-110) mg/dL Calcium (8.7-10.3) mg/dL Magnesium 1.5 L (1.6-2.3) mg/dL Ur Random Sodium (40-220) mmol/L 08/09/24 08/10/24 08/10/24 Range/Units 17:22 03:32 03:32 RBC 2.96 L (4.10-5.20) X 10*6/uL Hgb 10.0 L (12.0-15.0) g/dL Hct 30.1 L (37.2-46.3) % MCV 101.7 H (80.0-97.0) FL MCH 33.8 H (27.0-32.0) pg RDW 15.1 H (11.5-14.5) % Plt Count 93 L (140-440) X 10*3/uL Lymphocytes # 0.86 L (0.90-5.00) X 10*3/uL Sodium 131 L (137-145) mmol/L Chloride 94 L (98-107) mmol/L BUN 8.4 L (9.0-27.0) mg/dL BUN/Creatinine Ratio 10.50 L (12.00-20.00) Ratio Glucose 130 H (74-99) mg/dL POC Glucose (mg/dL) (70-110) mg/dL Calcium 8.4 L (8.7-10.3) mg/dL Magnesium (1.6-2.3) mg/dL Ur Random Sodium <20 L (40-220) mmol/L 08/10/24 Range/Units 06:17 RBC (4.10-5.20) X 10*6/uL Hgb (12.0-15.0) g/dL Hct (37.2-46.3) % MCV (80.0-97.0) FL MCH (27.0-32.0) pg RDW (11.5-14.5) % Plt Count (140-440) X 10*3/uL Lymphocytes # (0.90-5.00) X 10*3/uL Sodium (137-145) mmol/L Chloride (98-107) mmol/L BUN (9.0-27.0) mg/dL BUN/Creatinine Ratio (12.00-20.00) Ratio Glucose (74-99) mg/dL POC Glucose (mg/dL) 137 H (70-110) mg/dL Calcium (8.7-10.3) mg/dL Magnesium (1.6-2.3) mg/dL Ur Random Sodium (40-220) mmol/L Assessment and Plan Plan: Assessment: 1. Hyponatremia, initially hypovolemic. Sodium level subsequently dropped with fluids and was given a dose of Lasix yesterday. Sodium level 131 today. TSH normal. Cortisol level on the lower end of normal. Urine sodium less than 20. 2. Diabetes mellitus. 3. Hypomagnesemia from poor intake. Replaced. Better. 4. Benign hypertension. Controlled. Plan: Maintain 1200 cc fluid restriction. Encouraged protein intake. Repeat BMP and magnesium level 2 to 3 days postdischarge. Follow-up outpatient 1 week postdischarge.
[2024-08-10 11:16] LABS: Glucose,Whole Blood 145 mg/dL (70-110)
--- NOTE | 2024-08-12 01:06 | P.DS ---
Providers Date of admission: 08/07/24 03:34 Expected date of discharge: 08/10/24 Attending physician: Omero Gilmore Consults: 08/07/24 03:34 Consult Physician Routine Consulting Provider: Dusty Ulloa Consult Reason/Comments: fall with left proximal humerus fracture Do you want consulting provider notified?: Yes 08/07/24 11:19 Consult Physician Urgent Consulting Provider: Emeterio Metz Consult Reason/Comments: hyponatremia Do you want consulting provider notified?: Yes Primary care physician: Mary Ortiz Hospital Course: Final diagnosis Comminuted fracture of the left humeral neck fracture with severe pain hyponatremia, hypovolemic, improved Hypotension with acute kidney injury, present on admission Depression history Morbid obesity with a BMI of 41.6 GI prophylaxis DVT prophylaxis Full code Discharge disposition Patient is being discharged in a stable condition with guarded prognosis to home. Patient will follow-up with Dr. Ortiz in the outpatient setting upon discharge. Patient is to continue with current medications and outpatient follow-up with nephrology and orthopedics as scheduled. Total time taken is greater than 35 minutes. Hospital course This is a 64-year-old female who was recently admitted with comminuted fracture of the left humeral neck fracture having significant pain and also hyponatremia. Orthopedics and nephrology following and orthopedics with no plans of surgical intervention at this time recommending conservative management and has ordered upgraded sling. Patient with noted hyponatremia being followed by nephrology with repeat labs. Sodium is 131 today. Patient has been instructed to continue with fluid restrictions and monitor intake and output closely for outpatient follow-up. Recommend repeat labs to monitor kidney functions and electrolytes in the next few days. Please refer to consultation notes for further HPI. Currently no reports of chest pain, shortness of breath, or palpitations. Patient is afebrile. No reports of nausea or vomiting and patient is tolerating diet. Patient will be discharged home today. Guarded prognosis Physical exam: Gen: This is a 64-year-old female who is awake, alert oriented x 3, well- developed, appears older than stated age, morbidly obese HEENT: Head is atraumatic, normocephalic. Pupils equal, round. Sclerae is anicteric. NECK: Supple. No JVD. No lymphadenopathy. No thyromegaly. LUNGS: Clear to auscultation. No wheezes or rhonchi. No intercostal retractions. HEART: Regular rate and rhythm. No murmur. ABDOMEN: Soft. Bowel sounds are present. No masses. No tenderness. EXTREMITIES: No pedal edema. No calf tenderness. Left arm sling noted NEUROLOGICAL: Patient is awake, alert and oriented x3. Cranial nerves 2 through 12 are grossly intact. Please refer to medication reconciliation sheet for a list of medications. The impression and plan of care has been dictated by Paola Santiago, Nurse Practitioner as directed. Dr. Mando MD I have performed a history and examination and MDM of this patient, discussed the same with the dictator, and agree with the dictator's assessment and plan as written ,documented as a scribe. Based on total visit time, I have performed more than 50% of the visit. Patient Condition at Discharge: Stable Plan - Discharge Summary Discharge Rx Participant: Yes New Discharge Prescriptions: New Docusate [Colace] 100 mg PO BID #14 capsule Ondansetron [Zofran] 4 mg PO Q8HR PRN #12 tab PRN Reason: Nausea Acetaminophen Tab [Tylenol] 650 mg PO Q6HR PRN tab PRN Reason: Mild Pain Or Fever > 100.5 HYDROcodone/APAP 7.5-325MG [[place] 7.5-325] 1 tab PO Q6HR PRN 7 Days #24 tab PRN Reason: Pain Continue Aspirin EC [Ecotrin Low Dose] 81 mg PO HS Carvedilol [Coreg] 12.5 mg PO BID Insulin Glargine,Hum.rec.anlog [Lantus Solostar Pen] 10 - 20 units SQ HS ALPRAZolam [Xanax] 0.75 mg PO BID buPROPion XL [Wellbutrin XL] 150 mg PO Q48H Discontinued Valsartan [Diovan] 160 mg PO HS Discharge Medication List Aspirin EC [Ecotrin Low Dose] 81 mg PO HS 08/08/15 [History] Carvedilol [Coreg] 12.5 mg PO BID 08/08/15 [History] Insulin Glargine,Hum.rec.anlog [Lantus Solostar Pen] 10 - 20 units SQ HS 10/26/21 [History] ALPRAZolam [Xanax] 0.75 mg PO BID 08/07/24 [History] buPROPion XL [Wellbutrin XL] 150 mg PO Q48H 08/07/24 [History] Acetaminophen Tab [Tylenol] 650 mg PO Q6HR PRN tab 08/10/24 [Rx] Docusate [Colace] 100 mg PO BID #14 capsule 08/10/24 [Rx] HYDROcodone/APAP 7.5-325MG [[place] 7.5-325] 1 tab PO Q6HR PRN 7 Days #24 tab 08/10/24 [Rx] Ondansetron [Zofran] 4 mg PO Q8HR PRN #12 tab 08/10/24 [Rx] Follow up Appointment(s)/Referral(s): Mary Ortiz DO [Primary Care Provider] - 08/16/24 11:00 am Dusty Ulloa MD [Medical Doctor] - 08/19/24 8:45 am Ambulatory/Diagnostic Orders: Basic Metabolic Panel [LAB.AMB] Time Frame: 2 Days, Location: None Selected Activity/Diet/Wound Care/Special Instructions: Maintain arm sling to left upper extremity. Rest, ice and elevate for swelling. Please follow-up with [facility] and call with any questions or concerns, . Maintain fluid restrictions of 40 ounces daily including all water, pop, coffee, juices Repeat labs in the next few days to monitor sodium level Discharge Disposition: HOME SELF-CARE
== END 2024-08-10 15:30 | disposition home or self-care (01) | DRG 563 ==
LOC: EC 01:50 → 4SSUR 03:34
PROVIDERS: ADMIT Hospitalist; ATTEND Hospitalist
DX: S42.292A Other displaced fracture of upper end of left humerus, initial encounter for closed fracture (principal); N17.9 Acute kidney failure, unspecified; E87.1 Hypo-osmolality and hyponatremia; S42.212A Unspecified displaced fracture of surgical neck of left humerus, initial encounter for closed fracture; E66.01 Morbid (severe) obesity due to excess calories; E11.9 Type 2 diabetes mellitus without complications; F32.A Depression, unspecified; I10 Essential (primary) hypertension; E03.9 Hypothyroidism, unspecified; Z68.41 Body mass index [BMI] 40.0-44.9, adult; Z79.4 Long term (current) use of insulin; W01.0XXA Fall on same level from slipping, tripping and stumbling without subsequent striking against object, initial encounter; I95.9 Hypotension, unspecified; F41.9 Anxiety disorder, unspecified; G89.29 Other chronic pain; M54.9 Dorsalgia, unspecified; F17.210 Nicotine dependence, cigarettes, uncomplicated; E86.1 Hypovolemia; E83.42 Hypomagnesemia; K21.9 Gastro-esophageal reflux disease without esophagitis; Z91.040 Latex allergy status; Z88.5 Allergy status to narcotic agent; Z92.21 Personal history of antineoplastic chemotherapy; Z85.72 Personal history of non-Hodgkin lymphomas; Z79.899 Other long term (current) drug therapy; Z79.82 Long term (current) use of aspirin; Y92.009 Unspecified place in unspecified non-institutional (private) residence as the place of occurrence of the external cause; Z87.01 Personal history of pneumonia (recurrent)
CPT/HCPCS: 36415; 80048; 80051; 80053; 82533; 83036; 83735; 83930; 83935; 84295; 84300; 84443; 85025; 96361; 96374; 96375; 99285

== ENCOUNTER → 2024-08-23 | Outpatient (CLI) | payer MEDICARE ==
--- NOTE | 2024-08-23 09:25 | CT ---
EXAMINATION TYPE: CT shoulder LT wo con DATE OF EXAM: 08/23/2024 8:57 AM COMPARISON: . Extremity radiograph 08/07/2024 CLINICAL INDICATION: Female, 64 years old with history of S42.202A UNSP FRACTURE OF UPPER END OF LEFT HUMERU; PH[facility], Fracture proximal humerus LT arm TECHNIQUE: Axial images were obtained of the CT shoulder LT wo con, Additional coronal and sagittal r eformatted images and soft tissue and bone window were obtained for review. 3-D reconstruction was cr eated on a separate workstation. Contrast used: mL of , (None if empty) Oral contrast used: (None if empty) CT DLP: 616.40 mGycm, Automated exposure control for dose reduction was used. FINDINGS: Comminuted fracture of the proximal left humerus with intra-articular extension. Bony remod eling changes are present however there is no significant osseous fusion. There is medial displacemen t of the humeral shaft with respect to the head. The remainder of the osseous structures appear intac t. IMPRESSION: Comminuted left proximal humerus fracture with intra-articular extension without significant bony fus ion. There remains medial displacement of the fracture. [facility], , 08/23/2024 9:23 AM
== END | disposition home or self-care (01) ==
LOC: RADCTMAIN 08:08
PROVIDERS: ATTEND Orthopaedic Surgery
DX: S42.202A Unspecified fracture of upper end of left humerus, initial encounter for closed fracture (principal); X58.XXXA Exposure to other specified factors, initial encounter